=== PATIENT | male | born 1960 | race Caucasian/White ===

== ENCOUNTER → 2016-08-29 | Outpatient (CLI) | payer OTHER ==
[~2016-08-29] MED LIST: AMLO-114 PO; ATOR-24 PO; CIPR-255 PO; CLOP1TAB15 PO; LCTX PO; LISI-461 PO; PRT40 PO; THY/120 PO; VNCS125 PO
[2016-08-29 12:53] LABS: BLOOD UREA NITROGEN 13 mg/dl (7-18); BUN/CREATININE RATIO 9.5 (10-20)
== END | disposition home or self-care (01) ==
LOC: C.LAB 11:38
PROVIDERS: ATTEND Urology
DX: Z12.5 Encounter for screening for malignant neoplasm of prostate (principal)

== ENCOUNTER → 2016-08-29 | Outpatient (CLI) | payer OTHER ==
--- NOTE | 2016-08-29 08:07 | DIAGNOSTIC IMAGING REPORT ---
ABD/PELVIS NO IV OR ORAL CONT CT DOSE: 333.82 mGy.cm HISTORY: Mass B/L VARICOCELES TECHNIQUE: Multiaxial CT images of the abdomen and pelvis were performed without contrast. A dose lowering technique was utilized adhering to the principles of ALARA. COMPARISON STUDY: None. FINDINGS: Lung bases are clear. Liver is uniform within limitations of an unenhanced scan. There is a large left renal mass. Maximum dimensions of the left kidney approximately 10 x 7 cm. There is moderate perirenal infiltrative change. There is no definite hydronephrosis. There is distention of the left renal vein with distention of the inferior vena cava. Due to the absence of contrast is not possible to exclude the possibility of renal venous involvement. . Several left para-aortic nodes are present measuring to 1 cm. There is a retrocrural node measuring 8 mm. Several small left perirenal nodes are present. There is no distention of the left ureter. The right kidney is negative for hydronephrosis. Bowel pattern is considered nonobstructive. There are findings of mild chronic sigmoid diverticulosis. There is no evidence for acute diverticulitis. Bladder is midline. Inguinal regions appear generally unremarkable with several nodes measuring up to 7 mm. IMPRESSION: 1. Large mass occupying the bulk of the left renal outline. Probable perinephric localized extension. 2. This measures 10 x 7 cm in maximum cross-sectional dimension with moderate perinephric infiltrative change. 3. Distention of the left renal vein and superior aspect of the inferior vena cava raising the possibility of venous involvement although this cannot be confirmed on nonenhanced scan. 4. Several small perinephric, para aortic, and retroperitoneal nodes. 5. No acute bony abnormality. 6. Diagnostic considerations must include a left renal neoplasm, versus the less likely possibility of a left renal hemorrhagic process. 7. Neoplasm must the diagnosis of exclusion. The above report was generated using voice recognition software. It may contain grammatical, syntax or spelling errors. Electronically signed by: Suman Goncalves M.D. 08/29/2016 8:06 AM Dictated Date/Time: 08/29/2016 7:54 AM
== END | disposition home or self-care (01) ==
LOC: C.CTS 07:31
PROVIDERS: ATTEND Urology
DX: I86.1 Scrotal varices (principal); N28.89 Other specified disorders of kidney and ureter; R59.0 Localized enlarged lymph nodes

== ENCOUNTER → 2016-08-31 | Outpatient (CLI) | payer OTHER ==
[~2016-08-31] MED LIST changes: +OPTIRAY 320 IV PRN
--- NOTE | 2016-08-31 08:21 | DIAGNOSTIC IMAGING REPORT ---
(CHEST) THORAX WITH CT DOSE: 854.54 mGy.cm HISTORY: Renal mass GROSS HEMATURIA, RENAL MASS, LEFT TECHNIQUE: Multiaxial CT images of the chest were performed following the intravenous administration of contrast. A dose lowering technique was utilized adhering to the principles of ALARA. COMPARISON: None. FINDINGS: Large left renal mass versus been described previously. Invasion into the inferior vena cava is noted. Several parenchymal nodules are present. 3 mm nodule is noted in the right upper lobe transaxial image 110 superior segment nodule on the right measures 4 mm within the right lower lobe. 2 micronodules measuring 2 mm peripheral aspect right midlung transaxial image 140. 2 mm nodule peripheral left midlung transaxial image 143. Several scattered micronodules in the lung bases measuring no more than 2 mm. Left lower lobe demonstrates a 3 mm nodule transaxial image 174. Smaller nodules are identified throughout the lower lung regions bilaterally. There are no focal infiltrative changes. There is no significant hilar or mediastinal adenopathy. IMPRESSION: 1. Multiple pulmonary nodules suggesting early metastatic change. 2. No significant mediastinal or hilar adenopathy. 3. Known left renal mass demonstrating vascular invasion to the inferior vena cava at the level of the diaphragm. The above report was generated using voice recognition software. It may contain grammatical, syntax or spelling errors. Electronically signed by: Suman Goncalves M.D. 08/31/2016 8:19 AM Dictated Date/Time: 08/31/2016 8:10 AM
--- NOTE | 2016-08-31 08:31 | DIAGNOSTIC IMAGING REPORT ---
CT SCAN OF THE ABDOMEN AND PELVIS WITH IV CONTRAST RENAL MASS PROTOCOL CLINICAL HISTORY: Renal mass. COMPARISON STUDY: Unenhanced abdominal CT dated 08/29/2016. TECHNIQUE: Following the IV administration of 94 cc of Optiray 320, CT scan of the abdomen and pelvis is performed from the lung bases to the proximal femora using the renal mass protocol. The unenhanced examination was performed today as previously. Images are reviewed in the axial, sagittal, and coronal planes. IV contrast was administered without complication. Automated dose control exposure was utilized. A dose lowering technique was utilized adhering to the principles of ALARA. FINDINGS: Lung bases: The heart is normal in size and without pericardial effusion. The coronary arteries are calcified. Emphysema is noted. No airspace consolidation or pleural effusion is seen. There are at least 8 pulmonary nodules at the lung bases measuring up to 7 mm. Liver: The contrast-enhanced liver is normal in size, contour, and attenuation. There is no intrahepatic biliary ductal dilatation. The hepatic veins and portal veins are patent. An 8 mm hypodensity in the right hepatic lobe seen on image #1926 appears to fill in on the delayed series and likely represents a small hemangioma. Gallbladder: Unremarkable. Spleen: Normal in size and attenuation. Pancreas: Unremarkable. Adrenal glands: Unremarkable. Kidneys: The contrast enhanced right kidney is normal in size and without hydronephrosis. The right kidney enhances and excretes normally. The left kidney is largely replaced by an infiltrative and heterogeneous mass lesion. This measures at least 9 x 8 cm in transaxial diameter. There is mass lesion infiltrating and expanding the left renal vein. The left renal vein measures up to 2.5 cm diameter. This mass lesion also extends into the inferior vena cava and approaches the right atrium. The expanded upper IVC measures up to 4.2 cm. There is also likely invasion of the left renal collecting system. A cystic component is seen in the upper pole of the left kidney on image #114 and measures 2.8 cm. There are numerous collateral vessels vessels as well as mild stranding and fluid surrounding the left kidney. There is fullness of the left renal collecting system with no excretion identified. There is a the suggestion of a filling defect in the distal left ureter. No filling defects identified within the right renal collecting system or along the course of the right ureter. Abdominal vasculature: The abdominal aorta is normal in course and caliber noting moderate to advanced atherosclerotic calcification. Bowel: The small bowel and colon are normal in course and caliber. There is moderate diverticulosis of the left colon without CT evidence of acute diverticulitis. The appendix is well-visualized and normal. Peritoneum: There is no intraperitoneal free air or abdominal ascites. There is a small fat-containing umbilical hernia. Lymphadenopathy: No discrete retroperitoneal lymph nodes are identified. There is no pelvic sidewall, mesenteric, or inguinal lymphadenopathy. Pelvic viscera: Although decompressed, the bladder wall is markedly thickened and hyperemic. Intraluminal gas is noted. Pericystic inflammation is observed. There is the suggestion of a nodule/mass lesion involving the distal left ureter and the left vesicoureteral junction. The prostate and seminal vesicles are normal as imaged. They fat-containing left inguinal hernia is identified. Skeletal structures: No lytic or blastic lesions are seen. IMPRESSION: 1. There is a large infiltrative mass largely replacing the left kidney. This lesion invades the left renal vein and the inferior vena cava which are both expanded. This also likely invades the left renal collecting system, and the top differential considerations are renal cell carcinoma or less likely a transitional cell carcinoma. 2. There are numerous perirenal collateral vessels with associated infiltration and trace fluid, likely related to extracapsular extension. 3. A large filling defect is suggested in the distal left ureter. This may also represent tumor involvement. 4. No right renal lesion is seen. No discrete retroperitoneal lymphadenopathy is identified. 5. Numerous pulmonary nodules are identified at the lung bases and likely represent metastatic disease. 6. Emphysema. 7. Moderate diverticulosis of the left colon without CT evidence of acute diverticulitis. 8. The bladder wall is thickened and hyperemic. There is pericystic inflammation as well as intraluminal gas. Correlation with clinical findings and urinalysis will be required. 9. Additional findings as above. Electronically signed by: Vinnie Hernandez M.D. 08/31/2016 8:30 AM Dictated Date/Time: 08/31/2016 8:11 AM
== END | disposition home or self-care (01) ==
LOC: C.CTS 07:25
PROVIDERS: ATTEND Urology
DX: N28.89 Other specified disorders of kidney and ureter (principal); R31.0 Gross hematuria

== ENCOUNTER 2016-09-05 19:13 | Emergency (ER) | payer OTHER ==
[~2016-09-05] VITALS: Ht 170.2 cm; Wt 76.2 kg
[2016-09-05 19:17] VITALS: TEMP 36.7; Ht 170.2 cm; Wt 76.2 kg
[2016-09-05] MEDS ORDERED: THY/120 PO ×2 (20:22)
[2016-09-05] MEDS ORDERED: CLOP1TAB15 PO (20:22)
[2016-09-05] MEDS ORDERED: LISI-461 PO (20:22)
[2016-09-05] MEDS ORDERED: AMLO-114 PO (20:22)
[2016-09-05] MEDS ORDERED: ATOR-24 PO (20:22)
[2016-09-05] MEDS ORDERED: CIPROFLOXACIN 500MG HOME PACK PO ONE (20:45)
[2016-09-05] MEDS ORDERED: CIPR-255 PO (20:48)
[2016-09-05 21:15] VITALS: BP 138/101; PULSE 98; O2SAT 98
--- NOTE | 2016-09-05 23:06 | EMERGENCY ROOM VISIT NOTE ---
History Report prepared by Shirin: Aaron Mir Under the Supervision of: Dr. Hung Rodrigues M.D. First contact with patient: 19:24 Chief Complaint: URINARY SYMPTOMS Stated Complaint: CANNOT PEE Nursing Triage Summary: Pt reports he started passing blood clots through urine after having testing done here today with dye. Urologist told pt to hydrated to flush bladder. Last void 2 hours ago. Reporting bladder pressure and pain. Hx of left kidney mass with metastasis to bilat. lungs. testing today to R/O additional mets. History of Present Illness The patient is a 56 year old male who presents to the Emergency Room with complaints of urinary retention that began earlier today. 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 He received a CT scan today with contrast to try to find more metastasis. After the procedure, he began urinating blood and clots. He called his urologist and was told to drink a lot of water to flush his system. He then could not urinate and is experiencing retention. This has happened to the patient in the past. Pt denies LOC, headache , fevers, chills, diaphoresis, visual changes, neck pain, chest pain, breathing difficulties, nausea, vomiting, abdominal pain, back pain, melena, hematochezia , numbness, weakness, lymphadenopathy, rash, or other complaints. Source of History: patient Onset: earlier today Position: other () Symptom Intensity: moderate Quality: other (Urinary Retention) Timing: constant Associated Symptoms: + abdominal pain, + urinary symptoms (blood in urine) Review of Systems See HPI for pertinent positives and negatives. A total of ten systems were reviewed and were otherwise negative. Past Medical & Surgical Medical Problems: (1) CAD (coronary artery disease) (2) Hypothyroid Surgical Problems: (1) Stented coronary artery Family History Omitted secondary to age. Social History Smoking Status: Former Smoker Smokeless Tobacco Use: No Drug Use: none Marital Status: Housing Status: lives with significant other Current/Historical Medications Scheduled Amlodipine (Norvasc), 10 MG PO QAM Atorvastatin (Lipitor), 40 MG PO QPM Ciprofloxacin Hcl (Cipro), 500 MG PO BID Clopidogrel (Plavix), 75 MG PO QAM Lisinopril (Lisinopril), 10 MG PO QAM Thyroid ([place] Thyroid), 120 MG PO 6XWK Thyroid ([place] Thyroid), 60 MG PO SUNDAY Allergies Coded Allergies: BEE STING (Unverified Allergy, Unknown, SWELLING, 09/05/16) Banana (Unverified Allergy, Unknown, ANAPHYLAXIS, 09/05/16) Physical Exam Vital Signs Date Time Temp Pulse Resp B/P (MAP) Pulse Ox O2 Delivery O2 Flow Rate FiO2 09/05/16 21:15 98 18 138/101 98 Room Air 09/05/16 19:17 36.7 133 18 153/103 93 Room Air Physical Exam GENERAL: Awake, alert, uncomfortable appearing, in no distress HENT: Normocephalic, atraumatic. Oropharynx unremarkable. EYES: Normal conjunctiva. Sclera non-icteric. NECK: Supple. No nuchal rigidity. FROM. No JVD. RESPIRATORY: Clear to auscultation. CARDIAC: Regular rate, normal rhythm. Extremities warm and well perfused. Pulses equal. ABDOMEN: Soft, non-distended. Suprapubic tenderness to palpation. No rebound or guarding. No masses. RECTAL: Deferred. MUSCULOSKELETAL: Chest examination reveals no tenderness. The back is symmetrical on inspection without obvious abnormality. There is no CVA tenderness to palpation. No joint edema. LOWER EXTREMITIES: Calves are equal size bilaterally and non-tender. No edema. No discoloration. NEURO: Normal sensorium. No sensory or motor deficits noted. SKIN: No rash or jaundice noted. Medical Decision & Procedures ER Provider Diagnostic Interpretation: Bladder Scan revealed 800 ml of urine. Medications Administered Medications (Trade) Dose Ordered Sig/Francisco Javier Route Start Time Stop Time Status Last Admin Dose Admin Ciprofloxacin (Cipro 500MG Home Pack) 1 homepack UD ONCE PO 09/05/16 20:45 09/05/16 20:46 DC 09/05/16 21:31 1 HOMEPACK ED Course 1923: The patient was evaluated in room B10. A complete history and physical exam was performed. 2019: At this time, the patient feels better. We replaced his 16 [place] catheter with a 20 [place] catheter. The nurse irrigated the area and got 750 ml out of his bladder without leakage. 2044: Ordered Ciprofloxacin 1 homepack PO 2052: I reevaluated the patient. Discussed results and discharge instructions: He verbalized understanding and agreement. The patient is ready for discharge. Medical Decision Triage Nursing notes reviewed. The patient's presentation and history were concerning for urinary retention. Etiologies such as acute urinary retention, renal colic, UTI, as well as others were entertained. Bladder scan revealed significant urinary retention. The patient had a Casey catheter placed. This did relieve some pressure however the catheter clotted. A 20 [place] catheter was placed. This worked very nicely. His ladder was irrigated. A culture was sent. I will place the patient on Cipro. He has had the same issue happened before. I believe his renal cancer is the root cause of the hematuria and subsequent urinary obstruction. The patient will follow-up with urology. He is comfortable using a leg bag. If he worsens in any way he will be back to the Emergency Room for reevaluation. By the evaluation outlined above other emergent etiologies such as those listed in the differential, as well as others, were deemed relatively unlikely. The patient was educated about the findings as listed above. All questions were answered and the patient was pleased with the treatment. Return instructions were outlined and the patient was discharged in stable condition. The patient was referred to Urology for follow-up for a recheck of the current condition. Medication Reconcilliation Current Medication List: was personally reviewed by me Blood Pressure Screening Patient's blood pressure: Elevated blood pressure Blood pressure disposition: Elevated BP felt to be situational Impression Primary Impression: Acute urinary retention Additional Impression: Hematuria Scribe Attestation The scribe's documentation has been prepared under my direction and personally reviewed by me in its entirety. I confirm that the note above accurately reflects all work, treatment, procedures, and medical decision making performed by me. Departure Information Dispostion Home / Self-Care Prescriptions Ciprofloxacin Hcl (CIPRO) 500 Mg Tab 500 MG PO BID, #8 TAB Prov: Hung Rodrigues MD 09/05/16 Referrals Surinder Montano M.D. (PCP) Forms HOME CARE DOCUMENTATION FORM, IMPORTANT VISIT INFORMATION Patient Instructions My [facility] Additional Instructions Ciprofloxacin 500mg: Take one pill twice daily for 5 days for your urine. All antibiotics can cause diarrhea. If this occurs and you feel worse or it does not resolve in 1-2 days follow up with your doctor or return to the Emergency Department as this could be signs of serious underlying problems. Any medication can cause an allergic reaction or complication, stop the pills immediately and return to the ER for rash, hives, breathing difficulties, tendon pain, tendon injury, or swelling. Acetaminophen(Tylenol) may be used for fever or pain. Use 1000mg every six hours as needed. Avoid using more than 3000mg in a 24 hour period. Continue current medications. Care for the catheter as discussed. Do not pull on the catheter. Use the leg bag during the day and the large bag at night when you are sleeping. Drain the bag frequently. Do not let it fill completely. Return to the emergency department for fevers, abdominal pain, catheter problems , or as needed. Followup with the [facility] at [phone]. Call tomorrow for an appointment. Problem Qualifiers
[2016-09-06] MEDS ORDERED: CIPR-255 PO (00:03)
[2016-10-13] MEDS ORDERED: PRT40 PO (15:10)
[2016-10-13] MEDS ORDERED: VNCS125 PO (15:10)
[2016-10-13] MEDS ORDERED: LCTX PO (15:10)
== END 2016-09-05 21:34 | disposition home or self-care (01) ==
LOC: C.EDB 19:14
DX: R33.9 Retention of urine, unspecified (principal); R31.9 Hematuria, unspecified; C64.2 Malignant neoplasm of left kidney, except renal pelvis; C78.00 Secondary malignant neoplasm of unspecified lung; I25.10 Atherosclerotic heart disease of native coronary artery without angina pectoris; E03.9 Hypothyroidism, unspecified; Z95.5 Presence of coronary angioplasty implant and graft; Z87.891 Personal history of nicotine dependence; Z79.01 Long term (current) use of anticoagulants; Z79.899 Other long term (current) drug therapy

== ENCOUNTER 2016-09-05 23:37 | Emergency (ER) | payer OTHER ==
[~2016-09-05] VITALS: Ht 171.5 cm; Wt 75.6 kg
[~2016-09-05 23:37] MED LIST changes: -LCTX PO; -PRT40 PO; -VNCS125 PO
[2016-09-05 23:39] VITALS: TEMP 36.6; Ht 171.5 cm; Wt 75.6 kg
[2016-09-06] MEDS ORDERED: CIPR-255 PO (00:03)
--- NOTE | 2016-09-06 00:44 | EMERGENCY ROOM VISIT NOTE ---
History First contact with patient: 23:46 Chief Complaint: CATHETER REPLACEMENT Stated Complaint: PEEING BLOOD OUT AROUND CATHETER- HERE 1HR AGO History of Present Illness The patient is a 56 year old male who presents to the Emergency Room with complaints of problems with his Casey catheter. The patient states that he was here one hour ago and had a Casey catheter inserted. He states that before he left, he noted some blood leaking around the catheter and was concerned but was told that this could be normal. He has a history of renal cell carcinoma and follows with Dr. London of urology. He has had issues with blood clots in the urine in the past. He states that he feels like he has to urinate, but is unable to. He denies any abdominal pain, fevers or CVA tenderness. Review of Systems A complete 10 point review of systems was reviewed with the patient with pertinent positives and negatives as per history of present illness. All else were negative. Past Medical/Surgical History Medical Problems: (1) CAD (coronary artery disease) (2) Hypothyroid Surgical Problems: (1) Stented coronary artery Social History Smoking Status: Former Smoker Drug Use: none Marital Status: Housing Status: lives with significant other Current/Historical Medications Scheduled Amlodipine (Norvasc), 10 MG PO QAM Atorvastatin (Lipitor), 40 MG PO QPM Ciprofloxacin Hcl (Cipro), 500 MG PO BID Clopidogrel (Plavix), 75 MG PO QAM Lisinopril (Lisinopril), 10 MG PO QAM Thyroid ([place] Thyroid), 120 MG PO 6XWK Thyroid ([place] Thyroid), 60 MG PO SUNDAY Physical Exam Vital Signs Date Time Temp Pulse Resp B/P (MAP) Pulse Ox O2 Delivery O2 Flow Rate FiO2 09/06/16 00:49 78 18 163/101 98 09/05/16 23:39 36.6 100 18 162/104 96 Room Air Physical Exam VITALS: Vitals are noted on the nurse's note and reviewed by myself. Vital signs stable. GENERAL: This is a 48-year-old male, in no acute distress, well-developed well- nourished. HEART: Regular rate and rhythm without murmurs gallops or rubs. LUNGS: Clear to auscultation bilaterally without wheezes, rales or rhonchi. ABDOMEN: Soft, nontender. : There is a small amount of bright red blood around the Casey catheter. NEURO: Patient was alert and oriented to person place and time. Medical Decision & Procedures Medical Decision Differential diagnosis includes urinary tract infection, kidney stone, clotted catheter, among others. The patient was evaluated as above. The Casey catheter was irrigated by nursing staff and a clot was removed. After this was removed, the catheter began draining normally. The patient had no further complaints. I feel he is safe for discharge home to follow up with urology tomorrow. He was instructed to return here for any further concerns. He verbalized understanding and was discharged home in good condition. Medication Reconcilliation Current Medication List: was personally reviewed by pr Blood Pressure Screening Patient's blood pressure: Elevated blood pressure Blood pressure disposition: Elevated BP felt to be situational Impression Primary Impression: Complication of catheter Departure Information Dispostion Home / Self-Care Condition GOOD Referrals Surinder Montano M.D. (PCP) Pardeep London MD, Urology Patient Instructions My [facility] Additional Instructions Call urology tomorrow to schedule follow-up. Return to the emergency department with any worsening or new/concerning symptoms. Problem Qualifiers Primary Impression: Complication of catheter Encounter type: initial encounter Qualified Codes: T85.9XXA - Unspecified complication of internal prosthetic device, implant and graft, initial encounter
[2016-09-06 00:49] VITALS: BP 163/101; PULSE 78; O2SAT 98
[2016-10-13] MEDS ORDERED: PRT40 PO (15:10)
[2016-10-13] MEDS ORDERED: LCTX PO (15:10)
[2016-10-13] MEDS ORDERED: VNCS125 PO (15:10)
== END 2016-09-06 00:49 | disposition home or self-care (01) ==
LOC: C.EDB 23:38 → C.EDC 09-06 00:49
DX: T83.038A Leakage of other urinary catheter, initial encounter (principal); X58.XXXA Exposure to other specified factors, initial encounter; I25.10 Atherosclerotic heart disease of native coronary artery without angina pectoris; E03.9 Hypothyroidism, unspecified; Z85.53 Personal history of malignant neoplasm of renal pelvis; Z98.61 Coronary angioplasty status; Z79.899 Other long term (current) drug therapy; Z87.891 Personal history of nicotine dependence

== ENCOUNTER → 2016-09-05 | Outpatient (CLI) | payer OTHER ==
[~2016-09-05] MED LIST changes: -OPTIRAY 320 IV PRN
--- NOTE | 2016-09-05 12:55 | DIAGNOSTIC IMAGING REPORT ---
HEAD WITH CONTRAST (CT) HISTORY: N28.89 Renal mass, leftC64.2 Metastasis from malignant tumor of TECHNIQUE: Multiaxial CT images of the head were performed following the use of intravenous contrast. COMPARISON STUDY: None. FINDINGS: The paranasal sinuses and mastoid air cells are clear. No suspicious lytic or blastic osseous lesions. The ventricles and sulci are within normal limits. There is no mass, hematoma, midline shift, acute infarct. No abnormal enhancement within the brain. IMPRESSION: No evidence for intracranial metastatic disease. Electronically signed by: Tyrone Tyler M.D. 09/05/2016 12:54 PM Dictated Date/Time: 09/05/2016 12:49 PM
--- NOTE | 2016-09-05 15:15 | DIAGNOSTIC IMAGING REPORT ---
WHOLE-BODY NUCLEAR BONE SCAN CLINICAL HISTORY: Renal mass. COMPARISON STUDY: CT scan of the chest, abdomen, and pelvis dated 08/31/2016. CT of the brain dated 09/05/2016. TECHNIQUE: Three hours following the IV administration of 26.1 mCi of technetium 99m MDP, whole body nuclear bone scan was performed in the anterior and posterior projections. FINDINGS: There is no abnormal osseous tracer deposition identified typical in appearance for bony metastatic disease. Typically degenerative uptake is identified the shoulders, knees, and ankles There is expected excreted activity within the renal collecting system and bladder. There is diminished activity in the left kidney as compared to the right. IMPRESSION: There is no scintigraphic evidence of osseous metastatic disease. Electronically signed by: Vinnie Hernandez M.D. 09/05/2016 3:13 PM Dictated Date/Time: 09/05/2016 3:11 PM
== END | disposition home or self-care (01) ==
LOC: C.NUCL 11:36
PROVIDERS: ATTEND Urology
DX: R31.0 Gross hematuria (principal); N28.89 Other specified disorders of kidney and ureter; I82.220 Acute embolism and thrombosis of inferior vena cava; C64.2 Malignant neoplasm of left kidney, except renal pelvis

== ENCOUNTER → 2016-09-13 | Outpatient (CLI) | payer OTHER ==
[~2016-09-13] MED LIST changes: +LCTX PO; +PRT40 PO; +VNCS125 PO
--- NOTE | 2016-09-13 12:11 | DIAGNOSTIC IMAGING REPORT ---
PET/CT HISTORY: KIDNEY CANCER TECHNIQUE: PET/CT was performed from the base of the skull through the pelvis following the intravenous administration of 14.9 mCi of F18-FDG. Non-contrast CT imaging was performed over the same range without breath-hold for attenuation correction of PET images and anatomic correlation, but not for primary interpretation as it is not of standard diagnostic quality. CT DOSE: COMPARISON: Bone scan and head CT 09/05/2016. Chest abdomen and pelvis CT 08/31/2016. FINDINGS: HEAD AND NECK: There is no FDG-avid disease or significant lymphadenopathy in the imaged portions of the head and the neck. CHEST: Multiple scattered subcentimeter nodules seen throughout the lungs with the largest in the right lower lobe measuring 5 mm on image 106. There are at least 20 nodules identified. These do not demonstrate abnormal FDG uptake but are likely below the partial for PET imaging. No mediastinal or hilar lymphadenopathy. No pleural effusions. ABDOMEN/PELVIS: There is again noted a large FDG avid mass resulting in near-complete replacement of the normal left kidney. This measures up to 10 cm in size. This demonstrates an SUV max of 4.6. There is also redemonstration of the FDG avid extension of tumor into the renal vein and the suprarenal/intrahepatic IVC. These areas demonstrate an SUV max of 5. There is tumor involving a proximal branch of the left renal vein along the left side of the aorta. Mild left perinephric fat stranding. Some of this demonstrates mild FDG uptake and is consistent with spread of tumor into Gerota's fascia. There is also a 5 mm soft tissue nodule within the retroperitoneal fat inferior to the left kidney on image 188. This does not demonstrate abnormal normal FDG uptake but is suspicious for metastatic disease. No FDG avid hepatic or splenic masses. A 6 mm hypodense lesion within the right hepatic lobe is stable and may represent a cyst. Small fat-containing left adrenal hernia. Gas within the bladder lumen is likely due to prior catheterization. MUSCULOSKELETAL: Small focus of mild FDG uptake at the anterior L5-S1 disc space favors degenerative change. There are also small foci of mild FDG uptake either adjacent to or within the left posterior seventh and eighth ribs best seen on images 84 and 93. There is no corresponding CT abnormality at this time. IMPRESSION: 1. Redemonstration of the large infiltrative FDG avid left renal mass with tumor extending into the left renal vein and left suprarenal/intrahepatic IVC. There is also left perinephric soft tissue stranding. Some of this demonstrates mild FDG uptake. Therefore, this consistent with tumor extension into the surrounding Gerota's fascia. 2. Multiple subcentimeter pulmonary nodules. These do not demonstrate abnormal FDG uptake but are likely below the threshold for PET imaging. Therefore, these likely represent metastatic disease. 3. A 5 mm soft tissue nodule within the left retroperitoneal fat inferior to the left kidney. This does not demonstrate abnormal FDG uptake but is likely below the threshold for PET imaging. This is also some suspicious for metastatic focus. 4. Focal areas of mild FDG uptake either within or adjacent to the left posterior seventh and eighth ribs. No corresponding abnormality by CT. This bears watching on future examinations. Electronically signed by: Tyrone Tyler M.D. 09/13/2016 12:10 PM Dictated Date/Time: 09/13/2016 11:46 AM
== END | disposition home or self-care (01) ==
LOC: C.PET 07:55
PROVIDERS: ATTEND Internal Medicine Hematology
DX: C64.2 Malignant neoplasm of left kidney, except renal pelvis (principal); C79.9 Secondary malignant neoplasm of unspecified site; I87.1 Compression of vein

== ENCOUNTER 2016-10-09 01:03 | Inpatient (IN) | payer OTHER ==
[~2016-10-09] VITALS: Ht 170.2 cm; Wt 74.0 kg
[~2016-10-09 01:03] MED LIST changes: -LCTX PO; -PRT40 PO; -VNCS125 PO
[2016-10-09] MEDS ORDERED: ONDANSETRON INJ 2 MG/ML 2 ML VIAL IV STA ×2 (01:31→05:17)
[2016-10-09] MEDS ORDERED: SODIUM CHLORIDE 0.9% 1000ML 1,000 ML IV STA ×3 (01:31→05:43)
--- NOTE | 2016-10-09 01:47 | EMERGENCY ROOM VISIT NOTE ---
History Report prepared by Lemuelibe: Niharika Layton Under the Supervision of: Dr. Martine Lugo D.O. First contact with patient: 01:12 Chief Complaint: WEAKNESS Stated Complaint: GENERAL WEAKNESS/BLOATED/ UNABLE TO URINATE Nursing Triage Summary: arrived via amb with als. pt had recent kidney removal for ca and some surgery along his aorta for mets. c/o weakness tonight and pain in left kidney removal area. History of Present Illness The patient is a 56 year old male who presents to the Emergency Room with complaints of constant generalized illness starting about 11 hours ago. The patient notes that he has had 5 episodes of vomiting today which were green in color. The patient denies any nausea, shortness of breath, or abdominal pain. He states that his bladder feels full. The patient had his left kidney and a renal mass as well as lymph nodes surrounding his aorta removed 5 days ago at [facility]. The patient describes feeling pretty well since discharge. He had been suffering from some shortness of breath but states that that seemed to improve dramatically earlier yesterday. Source of History: patient Onset: 11 hours ago Position: other (generalized) Timing: constant Associated Symptoms: + vomiting, No nausea, No abdominal pain Review of Systems See HPI for pertinent positives & negatives. A total of 10 systems reviewed and were otherwise negative. Past Medical & Surgical Medical Problems: (1) ARF (acute renal failure) (2) CAD (coronary artery disease) (3) Hypothyroid (4) Pneumothorax Surgical Problems: (1) Stented coronary artery Family History no pertinent family history stated. Social History Smoking Status: Never Smoker Drug Use: none Marital Status: Housing Status: lives with significant other Current/Historical Medications Scheduled Amlodipine (Norvasc), 10 MG PO QAM Atorvastatin (Lipitor), 40 MG PO QPM Clopidogrel (Plavix), 75 MG PO QAM Lisinopril (Lisinopril), 10 MG PO QAM Thyroid (Coxsackie Thyroid), 120 MG PO 6XWK Thyroid (Coxsackie Thyroid), 60 MG PO SUNDAY Allergies Coded Allergies: BEE STING (Verified Allergy, Unknown, SWELLING, 10/09/16) Banana (Verified Allergy, Unknown, ANAPHYLAXIS, 10/09/16) Physical Exam Vital Signs Date Time Temp Pulse Resp B/P (MAP) Pulse Ox O2 Delivery O2 Flow Rate FiO2 10/09/16 06:42 120 20 105/70 93 Nasal Cannula 2.0 10/09/16 06:08 111 20 102/77 99 Nasal Cannula 2.0 10/09/16 05:35 112 18 86/70 96 Nasal Cannula 2.0 10/09/16 05:16 115 10/09/16 04:34 117 20 95/69 97 Nasal Cannula 2.0 10/09/16 03:48 117 20 93/63 94 Nasal Cannula 2.0 10/09/16 03:06 115 20 83/59 96 Nasal Cannula 2.0 10/09/16 02:25 114 20 101/58 95 Nasal Cannula 2.0 10/09/16 02:09 112 20 85/62 96 Nasal Cannula 2.0 10/09/16 01:49 98 Nasal Cannula 2.0 10/09/16 01:41 117 20 111/78 95 Nasal Cannula 2.0 10/09/16 01:17 94 Room Air 10/09/16 01:12 119 10/09/16 01:11 36.6 117 20 86/56 94 Room Air Physical Exam HEENT: Head - normocephalic and atraumatic Pupils are equal, round, and reactive to light. Extraocular eye muscles are intact, and sclera icterus. Nose - moist nasal mucosa without discharge. Mouth - moist buccal mucosa. Oropharynx is nonerythematous and there is no tonsillar exudate or edema noted. Neck: Supple; no JVD, nuchal rigidity, cervical lymphadenopathy. Heart: Regular rate and rhythm. There is a normal S1 and S2 with no murmurs, clicks, or gallops appreciated. Lungs: Clear to auscultation bilaterally with no wheezes, rales, or rhonchi. Abdomen: Soft, completely nontender, significantly distended, with hypoactive bowel sounds. There are no palpable pulsatile masses or hepatosplenomegaly. There is no guarding, rigidity, or rebound noted. Extremities: No evidence of cyanosis, clubbing, or edema. There are easily palpable peripheral pulses. Skin: pale, warm and dry with good turgor and no rashes. Left chest tube site looks normal. Midline abdominal incision looks normal with Dermabond in place. Medical Decision & Procedures ER Provider Diagnostic Interpretation: Radiology results as stated below per my review and the radiologist's interpretation: Obstruction Series: Small bowel obstruction with multiple air fluid levels. CT ABDOMEN & PELVIS Left-sided pneumothorax which is only partially visualized. Consider CT of the chest or radiograph of the chest in exhalation. Small amount of subcutaneous emphysema noted with the left chest. Enteric tube is seen with tip at the GE junction. Recommend advancement by 5 cm. Dilated stomach and small bowel loops with a transition point in the right lower quadrant(2-52). Findings are concerning for small bowel obstruction. No pneumatosis or free air. The left kidney is surgically absent. Standing is noted within the surgical bed. Noninflamed colonic diverticulosis. Appendix is not visualized. Urinary bladder is decompressed with a Casey catheter present. Laboratory Results 10/09/16 00:58 Red Blood Count 3.64, Mean Corpuscular Volume 84.3, Mean Corpuscular Hemoglobin 29.4, Mean Corpuscular Hemoglobin Concent 34.9, Mean Platelet Volume 10.4, Neutrophils (%) (Auto) 68.6, Lymphocytes (%) (Auto) 8.9, Monocytes (%) (Auto) 19.1, Eosinophils (%) (Auto) 1.9, Basophils (%) (Auto) 0.4, Neutrophils # (Auto ) 3.92, Lymphocytes # (Auto) 0.51, Monocytes # (Auto) 1.09, Eosinophils # (Auto ) 0.11, Basophils # (Auto) 0.02 Test 10/09/16 00:58 10/09/16 01:29 10/09/16 06:24 10/09/16 06:35 White Blood Count 5.71 K/uL (4.8-10.8) Red Blood Count 3.64 M/uL (4.7-6.1) Hemoglobin 10.7 g/dL (14.0-18.0) Hematocrit 30.7 % (42-52) Mean Corpuscular Volume 84.3 fL (80-100) Mean Corpuscular Hemoglobin 29.4 pg (25-34) Mean Corpuscular Hemoglobin Concent 34.9 g/dl (32-36) Platelet Count 293 K/uL (130-400) Mean Platelet Volume 10.4 fL (7.4-10.4) Neutrophils (%) (Auto) 68.6 % Lymphocytes (%) (Auto) 8.9 % Monocytes (%) (Auto) 19.1 % Eosinophils (%) (Auto) 1.9 % Basophils (%) (Auto) 0.4 % Neutrophils # (Auto) 3.92 K/uL (1.4-6.5) Lymphocytes # (Auto) 0.51 K/uL (1.2-3.4) Monocytes # (Auto) 1.09 K/uL (0.11-0.59) Eosinophils # (Auto) 0.11 K/uL (0-0.5) Basophils # (Auto) 0.02 K/uL (0-0.2) RDW Standard Deviation 40.4 fL (36.4-46.3) RDW Coefficient of Variation 13.4 % (11.5-14.5) Immature Granulocyte % (Auto) 1.1 % Immature Granulocyte # (Auto) 0.06 K/uL (0.00-0.02) Nucleated RBC Absolute Count (auto) 0.24 K/uL (0-0) Nucleated Red Blood Cells % 4.2 % Toxic Granulation 2+ Toxic Vacuolation 1+ Dohle Bodies 1+ Large Platelets 1+ Polychromasia 1+ D-Dimer 57753 ug/L FEU (0-500) Est Creatinine Clear Calc Drug Dose 32.7 ml/min Total Bilirubin 0.6 mg/dl (0.2-1) Aspartate Amino Transf (AST/SGOT) 33 U/L (15-37) Alanine Aminotransferase (ALT/SGPT) 36 U/L (12-78) Alkaline Phosphatase 69 U/L (45-117) Troponin I < 0.015 ng/ml (0-0.045) Total Protein 6.9 gm/dl (6.4-8.2) Albumin 2.9 gm/dl (3.4-5.0) Globulin 4.0 gm/dl (2.5-4.0) Albumin/Globulin Ratio 0.7 (0.9-2) Laboratory results per my review. Medications Administered Medications (Trade) Dose Ordered Sig/Francisco Javier Route Start Time Stop Time Status Last Admin Dose Admin Sodium Chloride 1,000 ml @ 999 mls/hr Q1H1M STAT IV 10/09/16 01:31 10/09/16 02:31 DC 10/09/16 01:31 999 MLS/HR Ondansetron HCl (Zofran Inj) 4 mg NOW STAT IV 10/09/16 01:31 10/09/16 01:32 DC 10/09/16 01:37 4 MG Sodium Chloride 1,000 ml @ 125 mls/hr Q8H STAT IV 10/09/16 01:43 10/09/16 09:42 10/09/16 01:43 125 MLS/HR Ondansetron HCl (Zofran Inj) 4 mg NOW STAT IV 10/09/16 05:17 10/09/16 05:18 DC 10/09/16 05:24 4 MG Metronidazole (Flagyl / Nss) 500 mg NOW STAT IV 10/09/16 05:38 10/09/16 05:40 DC 10/09/16 05:47 500 MG Sodium Chloride 1,000 ml @ 999 mls/hr Q1H1M STAT IV 10/09/16 05:43 10/09/16 06:43 DC 10/09/16 05:43 999 MLS/HR Procedure Zofran Inj IV 2 , NSS IV. Flagyl/Nss IV. ED Course 0123: Past medical records reviewed. The patient was evaluated in room B5. A complete history and physical exam was performed. Labs were drawn as above. 0131: Zofran Inj 4 mg IV, Sodium Chloride 1000 ml @ 999 mls/hr IV. 0138: Casey catheter was put in place and there was no urine output. 0143: Sodium Chloride 1000 ml @ 125 mls/hr IV. The patient went for an obstruction series which showed signs of a small bowel obstruction with air- fluid levels throughout the small bowel. 0155: The patient became hypoxic and was put on O2 and his blood pressure dropped back down into 80's. 0319: I [facility] the [facility] [place] [facility] [place] He suggested I discuss the case with surgery billing collections specialist. The patient went for CT scan of the abdomen/pelvis to further define this small bowel obstruction. 0511: The patient is still nauseated and the nursing staff was able to get 600 out of the NG tube. 0517: Zofran Inj 4 mg IV. 0529: I discussed the patient's lab and CT results with him. He is C. diff positive. 0536: I discussed the patients case with Dr. Kahn-Surgery. He said that the patient will be fine for admit here. 0538: Flagyl/Nss 500 mg IV. 0543: Sodium Chloride 1000 ml @ 999 mls/hr IV. 0601: Upon reevaluation, I discussed findings and results with the patient. He verbalized agreement of the treatment plan. I spoke with [place] Erwin of the [facility] [place]. The patient will be evaluated for further management and care. Medical Decision The patient is a 56 year old male who presents to the Emergency Room with complaints of constant generalized illness starting about 11 hours ago. Differential diagnosis includes urinary retention, SBO dehydration, intraabdominal bleeding, PE, or sepsis Lab results show white count 5.7, hemoglobin 10.7, BUN 37, creatinine 2.3, D- dimer [id number]. This is a 56-year-old male patient who recently underwent left nephrectomy with tumor resection at [facility]. Over the past 12 hours, the patient has developed bilious vomiting. He presents with significant abdominal distention. X-ray confirms evidence of a small bowel obstruction. The patient had profuse diarrhea that was C. difficile positive. Casey catheter placement revealed no urinary output. The patient was treated aggressively with IV crystalloid therapy and started on IV Flagyl. NG tube placement produced more than 1000 mL of bilious substance. I discussed the case with surgery as well as the [facility] Hospitalist and they will evaluate for further management. Medication Reconcilliation Current Medication List: was personally reviewed by me Blood Pressure Screening Patient's blood pressure: Low blood pressure Blood pressure disposition: Elevated BP felt to be situational Consults Time Called: 316 Consulting Physician[facility] [place] [facility] [place]ed Call: [phone] Discussed the patient's case. He suggested I discuss the case with surgery billing collections specialist. Additional Consults: Time Called: 05 Consulted Physician: Dr. Kahn-Surgery Returned Call: [phone] Additional Comments: Discussed the patient's case. He thinks that the patient will be fine for admit here. Time Called: 06 Consulted Phys[facility] [place] [facility] [place]ed Call: 06 Additional Comments: Discussed the patient's case. The patient will be evaluated for further management. Impression Primary Impression: SBO (small bowel obstruction) Additional Impressions: Acute kidney injury C. difficile colitis Scribe Attestation The scribe's documentation has been prepared under my direction and personally reviewed by me in its entirety. I confirm that the note above accurately reflects all work, treatment, procedures, and medical decision making performed by me. Departure Information Referrals Surinder Montano M.D. (PCP) Patient Instructions My [facility] Problem Qualifiers
[2016-10-09 01:50] LABS: HEMATOCRIT 30.7 % (42-52); MEAN CELL VOLUME 84.3 fL (80-100); MEAN CORPUSCULAR HEMOGLOBIN 29.4 pg (25-34); MEAN CORPUSCULAR HGB CONC 34.9 g/dl (32-36); MEAN PLATELET VOLUME 10.4 fL (7.4-10.4); PLATELET COUNT 293 K/uL (130-400); RED BLOOD COUNT 3.64 M/uL (4.7-6.1); WHITE BLOOD COUNT 5.71 K/uL (4.8-10.8)
[2016-10-09 01:56] LABS: ALT/SGPT 36 U/L (12-78); AST/SGOT 33 U/L (15-37); BLOOD UREA NITROGEN 37 mg/dl (7-18); BUN/CREATININE RATIO 16.2 (10-20); CALCIUM 8.1 mg/dl (8.5-10.1); CARBON DIOXIDE 27 mmol/L (21-32); CHLORIDE 93 mmol/L (98-107); GLUCOSE 120 mg/dl (70-99); POTASSIUM 3.4 mmol/L (3.5-5.1); SODIUM 131 mmol/L (136-145)
[2016-10-09 02:01] LABS: ALB/GLOB RATIO 0.7 (0.9-2); ALKALINE PHOSPHATASE 69 U/L (45-117)
[2016-10-09 03:03] LABS: BASO % 0.4 %; BASO ABS # 0.02 K/uL (0-0.2); COMPLETE YES; DOHLE BODIES 1+; EOS % 1.9 %; IG% 1.1 %; LARGE PLATELETS 1+; LYMPH % 8.9 %; LYMPH ABS # 0.51 K/uL (1.2-3.4); MONO % 19.1 %; NEUT % 68.6 %; POLYCHROMASIA 1+; TOXIC GRANULATION 2+; VACUOLIZATION 1+
[2016-10-09] MEDS ORDERED: METRONIDAZOLE 500MG / 100ML NSS IV STA (05:38)
[2016-10-09] MEDS ORDERED: VANCOMYCIN INJ 500 MG in SODIUM CHLORIDE 0.9% 250ML 250 ML IV STA (05:38)
[2016-10-09] MEDS ORDERED: NSS + 20MEQ KCL 1000ML 1,000 ML IV SCH (06:15)
[2016-10-09 06:58] LABS: URINE APPEARANCE CLOUDY (CLEAR); URINE COLOR DK YELLOW; URINE NITRITE NEG (NEG); URINE SPECIFIC GRAVITY 1.024 (1.000-1.030); UROBILINOGEN NEG (NEG)
[2016-10-09] MEDS ORDERED: LORAZEPAM 2 MG/ML 1 ML VIAL IV PRN (07:00)
[2016-10-09] MEDS ORDERED: PROMETHAZINE HCL INJ 12.5 MG in SODIUM CHLORIDE 0.9% 50ML 50 ML IV PRN (07:00)
[2016-10-09] MEDS ORDERED: LEVALBUTEROL/IPRATROPIUM NEB INH PRN (07:00)
[2016-10-09] MEDS ORDERED: TRAMADOL HCL 50 MG TAB PO PRN (07:00)
--- NOTE | 2016-10-09 07:06 | DIAGNOSTIC IMAGING REPORT ---
ABDOMEN 2VIEW W/PA CHEST RTN HISTORY: 56 years-old Male eval for sbo acute generalized abdominal pain with nausea. History of kidney cancer. COMPARISON: PET CT 09/13/2016, CT abdomen and pelvis 10/09/2016. TECHNIQUE: Frontal view of the chest with erect and supine views of the abdomen FINDINGS: Prior median sternotomy. Cardiac silhouette is within normal limits. Small left-sided pneumothorax is seen with pleural separation of 6 mm. No right-sided pneumothorax. No pleural effusion or focal airspace consolidation. The bones are grossly intact. Multiple surgical clips are seen within the left upper and lower abdomen. There are multiple dilated loops of small bowel throughout the abdomen with associated air-fluid levels measuring up to 4.3 cm transversely. No significant air within the colon. No pneumoperitoneum or pneumatosis identified. No urolithiasis or fracture. Mild degenerative changes involve the bilateral hips. IMPRESSION: 1. Small left-sided pneumothorax of unknown etiology without rib fracture identified. 2. Multiple dilated loops of small bowel throughout the abdomen with air-fluid levels suspicious for small bowel obstruction. Further evaluation with CT study of same day recommended. The above report was generated using voice recognition software. It may contain grammatical, syntax or spelling errors. Electronically signed by: Travis Pina M.D. 10/09/2016 7:05 AM Dictated Date/Time: 10/09/2016 6:57 AM
[2016-10-09 07:12] LABS: MANUAL MICROSCOPIC REQUIRED? NO; REVIEW REQ? YES; URINE BILIRUBIN NEG (NEG)
[2016-10-09 07:14] LABS: BUN/CREATININE RATIO 14.7 (10-20); CALCIUM 7.5 mg/dl (8.5-10.1); CREATININE 2.6 mg/dl (0.60-1.40); POTASSIUM 3.2 mmol/L (3.5-5.1)
[2016-10-09 07:24] VITALS: BP 113/73; PULSE 102; TEMP 36.5; O2SAT 94; Ht 170.2 cm; Wt 74.0 kg
[2016-10-09 07:24] LABS: MAGNESIUM 1.8 mg/dl (1.8-2.4); THYROID STIMULATING HORMONE 12.6 uIu/ml (0.300-4.500)
[2016-10-09 07:26] LABS: URINE MUCUS PRESENT (NONE PRSENT)
[2016-10-09] MEDS ORDERED: PANTOprazole INJ 80 MG in DEXTROSE 5% 100ML IV SCH (07:30)
--- NOTE | 2016-10-09 07:31 | DIAGNOSTIC IMAGING REPORT ---
(CHEST) THORAX WITHOUT CT DOSE: 401.37 mGy.cm CLINICAL HISTORY: 56 years-old Male with pneumothorax . Pneumothorax seen on comparison chest radiograph. Acute abdominal pain with nausea. History of metastatic kidney cancer. Follow-up study. TECHNIQUE: Multiaxial CT images of the chest were performed without contrast. A dose lowering technique was utilized adhering to the principles of ALARA. COMPARISON: PET CT 09/13/2016, acute abdominal series radiographs 10/09/2016. FINDINGS: No dominant thyroid nodule identified. Evaluation for adenopathy is limited without the use of IV contrast. Lower right paratracheal lymph node measures in the upper limits of normal and short axis, 8 mm, unchanged. This demonstrated mild FDG activity on comparison PET CT, indeterminate for metastasis or reactive change. No pathologic adenopathy by CT size criteria. Heart is normal in size without pericardial effusion. Coronary arterial calcifications are present. There is atherosclerosis of the aorta. Left paracentral epicardial lymph node, 7 mm has developed in the interval. Additional smaller nodules of the central epicardial fat pad are noted which appear unchanged. Small left pleural effusion is noted. Moderate upper lobe predominant centrilobular emphysematous changes are noted. There is a small left-sided pneumothorax, pleural separation 10 mm at the level of the left lung base. Scattered noncalcified pulmonary nodules are present bilaterally, suspicious for metastasis. Largest nodule measures 7 mm within the right lower lobe on image 207 with nodules throughout the left lung measuring in the 4 mm range. There is mild dependent bibasilar atelectasis. Mild amount of subcutaneous emphysema seen along the lateral left chest wall. Prior median sternotomy, new from prior exam. Stranding within the central epicardial fat likely postsurgical. There is evidence of recent CABG. Postsurgical changes are seen compatible with prior left-sided nephrectomy. Dilation of small bowel from the upper abdomen incidentally noted. Enteric tube is present with distal tip terminating near the gastroesophageal junction. Bones are grossly intact. IMPRESSION: 1. Interval median sternotomy and CABG with small left-sided hydropneumothorax and lateral left chest wall subcutaneous emphysema. Depending on the acuity of the recent surgery, these findings may be expected postsurgical changes. Correlate with prior history and recent postoperative comparison chest radiographs which are not available for review at time of dictation. 2. Multiple noncalcified bilateral multilobar pulmonary nodules are again noted, suspicious for metastatic disease. Please refer to PET/CT 09/13/2016 for further details. 3. Emphysema. 4. Dilated loops of small bowel within the upper abdomen are noted, better evaluated on CT abdomen and pelvis study of same day. 5. Enteric tube tube terminates at the gastroesophageal junction. Electronically signed by: Travis Pina M.D. 10/09/2016 7:30 AM Dictated Date/Time: 10/09/2016 7:17 AM
[2016-10-09] MEDS ORDERED: LEVALBUTEROL 1.25MG/0.5ML NEB INH PRN (07:45)
[2016-10-09] MEDS ORDERED: IPRATROPIUM BROMIDE NEB SOLN 0.02% 2.5 ML VIAL INH PRN (07:45)
[2016-10-09 07:46] VITALS: BP 118/74; PULSE 115; TEMP 36.3; O2SAT 94
--- NOTE | 2016-10-09 07:48 | DIAGNOSTIC IMAGING REPORT ---
ABD/PELVIS NO IV OR ORAL CONT HISTORY: 56 years-old Male eval for sbo acute abdominal pain with nausea and vomiting. Concern for small bowel obstruction. Follow-up exam. History of metastatic kidney cancer, recent prior median sternotomy and CABG as well as nephrectomy. COMPARISON: PET CT 09/13/2016, CT abdomen and pelvis 08/31/2016. TECHNIQUE: Multiple axial CT images of the abdomen and pelvis were obtained without contrast. A dose lowering technique was used consistent with the principals of ALARA. FINDINGS: Small left-sided hydropneumothorax is noted with lateral left chest wall subcutaneous emphysema and postoperative changes compatible with prior median sternotomy. These findings are better evaluated on CT chest of same day. Pulmonary nodules of the lung bases are also seen suggesting metastases measuring up to 6 mm. Evaluation of the solid organs is limited secondary to be marking artifact from positioning of patient's arms and lack of contrast. Within the limitations of the study, the liver, spleen, pancreas and right adrenal gland are unremarkable. Soft tissue stranding partially obscures the left adrenal gland. There is mild edema within the left perinephric space from recent left-sided nephrectomy. No residual mass is definitively seen within the left perirenal space. Punctate calcification within the interpolar right kidney may reflect a calculus or vascular calcification. Right ureter is normal in caliber. There is a Casey catheter present within a collapsed or bladder lumen. Air within urinary bladder lumen is likely from instrumentation. Small fat filled left inguinal hernia noted. There are calcifications of the vas deferens, associated with diabetes. Previously noted 5 mm soft tissue nodule within the left retroperitoneal fat redemonstrated on image 275. Moderate atherosclerotic disease involves the abdominal aorta and branch vessels. Postsurgical changes are also seen within the region of the left renal vein. The IVC no longer appears expanded, however evaluation is limited without IV contrast. No bulky adenopathy is identified. Enteric tube is present with distal tip terminating near the gastroesophageal junction. Stomach is distended with air-fluid level. Duodenum and jejunum are also dilated. The fecalized small bowel loop is noted within the right midabdomen on image 227. This is noted just proximal to transitioned collapsed distal bowel within the right lower abdomen. The colon is fluid-filled and does contain air without dilation. Distal ileum is primarily collapsed. No pneumoperitoneum or pneumatosis. Colonic diverticula are seen without diverticulitis. Post surgical changes are seen along the ventral abdominal wall. Bones are intact. No definite bony metastasis are identified. Severe intervertebral disc space narrowing L5-S1. IMPRESSION: 1. Moderately dilated stomach and proximal small bowel is noted with transitioned collapsed small bowel and distal ileum within the right lower quadrant. Findings suggest low-grade small bowel obstruction or alternatively postsurgical ileus. This can be correlated with small bowel follow-through and follow-up imaging. 2. No pneumoperitoneum or pneumatosis. 3. Air-fluid level layering within nondistended colon may reflect ileus or diarrheal state. 4. Recent left sided nephrectomy with mild likely postsurgical edema within the left perinephric space. No large postsurgical collection. 5. Small left-sided hydropneumothorax with lateral left chest wall subcutaneous emphysema and evidence of prior median sternotomy. Correlate with chest CT of same day. 6. Multiple noncalcified pulmonary nodules of the lung bases again seen suggesting metastasis. 7. 5 mm soft tissue nodule within the left retroperitoneal space at the level left of the upper pelvis is again seen, unchanged from PET CT 09/13/2016 which is suspicious for metastasis. The above report was generated using voice recognition software. It may contain grammatical, syntax or spelling errors. Electronically signed by: Travis Pina M.D. 10/09/2016 7:46 AM Dictated Date/Time: 10/09/2016 7:30 AM
[2016-10-09] MEDS ORDERED: POTASSIUM CHLR 10 MEQ / WTR 10 MEQ in PREMIXED WATER 100 ML IV ONE (08:00)
[2016-10-09] MEDS ORDERED: LEVALBUTEROL/IPRATROPIUM NEB INH STA (08:21)
[2016-10-09 08:22] LABS: FERRITIN 533.8 ng/ml (8.0-388.0)
[2016-10-09] MEDS ORDERED: IPRATROPIUM BROMIDE NEB SOLN 0.02% 2.5 ML VIAL INH STA (08:32)
[2016-10-09] MEDS ORDERED: LEVALBUTEROL 1.25MG/0.5ML NEB INH STA (08:32)
--- NOTE | 2016-10-09 08:33 | CONSULTATION REPORT ---
DATE OF CONSULTATION: 10/09/2016 Seen at the request of Dr. Matute from the ER and Dr. Erwin. SUMMARY: This is a 56-year-old gentleman who 5 days ago underwent left nephrectomy at [place] and was discharged apparently feeling fine, but he has had ongoing vomiting in the last 12 hours or so, was brought into the Emergency Room and found to have findings consistent with small-bowel obstruction and also positive C. diff. He has had some diarrhea associated with the C. diff. The patient had nephrectomy approximately 5 days ago and at that time he underwent a median sternotomy with removal of clot into the vena cava. He also stated that they put a tube on his left chest side which would explain why he may have a residual left pneumothorax. PAST MEDICAL HISTORY: Positive for coronary artery disease, hypotension. PAST SURGICAL HISTORY: He had coronary artery stenting in the past. FAMILY HISTORY: Unremarkable and noncontributory. PRESENT MEDICINES: In the chart was reviewed. PHYSICAL EXAMINATION: At this present time, Aman is in no acute distress. His NG tube is in place, actually advanced it a little bit. His last vitals showed him to have temperature of 36.6, he is tachycardic to the point of 115, his blood pressures varied 83/59 last. He is alert, coherent, in no distress. The median sternotomy incision extending to the abdomen is noted. It is healing well. There is no evidence of any drainage. Lungs are clear bilaterally. The abdomen is softly distended, he is nontender. The NG output has been minimal. As stated, it was advanced. The x-rays were reviewed. LABORATORY STUDIES: Showed hemoglobin of 9.8, WBC is 5.71 without left shift. His chemistries showed BUN of 38, creatinine 2.60, potassium 3.2. At this time, there is nothing surgically to be done. We will continue with NG drainage. The chest pneumothorax should resolve on its own and there is no need for any invasive procedure on that side. Of note, the patient at least radiographically had evidence of metastatic disease in both lungs for nodules prior to his nephrectomy. MTDD
--- NOTE | 2016-10-09 08:38 | HISTORY & PHYSICAL EXAMINATION ---
DATE OF ADMISSION: 10/09/2016 PRIMARY CARE DOCTOR: Dr. Montano. CHIEF COMPLAINT: Abdominal pain. HISTORY OF PRESENT ILLNESS: Medical history obtained from patient and records. Medical history is significant for renal mass likely malignancy left status post surgery, hypertension, CAD status post stenting, chronic anemia (baseline hemoglobin 10), past tobacco abuse, hypothyroidism. In August 2016, the patient had gross hematuria. CAT scan showed a 9 mm left renal mass with renal vein/IVC involvement. CT chest 09/2016 as part of staging workup showed multiple pulmonary nodules possibly metastatic disease, emphysema. Patient underwent open L radical nephrectomy (adrenal sparing), L renal vein/ IVC thrombectomy at [facility] 10/03 under by Urology and CT surgery. Two chest tubes left pleural and posterior mediastinal placed for drainage and subsequently removed. Patient was on the vent postop subsequently extubated on the same day. No pneumothorax on last CXR done during confinement dated 10/04. As per patient , he initially had postop constipation later followed by loose stools after laxative administration during confinement until discharge to home last October 07. At home, continuous diarrhea. Yesterday, increasing abdominal pain, distention, nausea, vomiting. No fever, no chills Poor appetite. Patient not urinating as much. Patient denies chest pain; admits to some shortness of breath, cough productive of white sputum noted during confinement at [facility] Patient brought to the Emergency Room. Initial x-ray showed bowel obstruction, small left pneumothorax. NGT placed. Subsequent note of bloody NGT drainage. Stool C. diff positive. IV Flagyl given in the ER. MEDICAL HISTORY: As above. SURGERIES: Nephrectomy HOME MEDICATIONS: Include, Norvasc, Lipitor, Plavix, lisinopril. ALLERGIES: TO BEE STING, BANANA. FAMILY HISTORY: Heart disease. PERSONAL AND SOCIAL HISTORY: Past tobacco abuse. No chronic intake of alcoholic beverages. 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 REVIEW OF SYSTEMS: As per HPI, all other ROS negative PHYSICAL EXAMINATION: VITAL SIGNS: Blood pressure was noted to be initially 86/50 later 100/70, pulse rate 115, RR 20, T 37 O2 94RA SKIN: Pallor. GENERAL: Uncomfortable, no respiratory distress. HEENT: Pale palpebral conjunctivae. Dry mucosa. NGT in place. NECK: No JVD. supple CHEST: Decreased breath sounds. HEART: Tachycardic. ABDOMEN: Some distension, nontender. EXTREMITIES: No edema, no tenderness. NEUROLOGIC: No gross focality. LABORATORY DATA: Hemoglobin was noted to be 10.7, hematocrit 32.7, white cell count 5.7, platelets 293. Sodium 131, potassium 3.4, chloride 93, CO2 27, BUN 37, creatinine 2.3, glucose 120. IMAGING STUDIES: CT abdomen and pelvis initial read showed left-sided pneumothorax partially visualized. Consider CT chest, intact tube noted. Dilated stomach, small bowel loops, and transition to right lower quadrant concerning for small-bowel obstruction, no pneumatosis. ASSESSMENT: 1. Hypotension secondary to hypovolemia secondary to SBO (recent L nephrectomy at [facility]), cdif diarrhea UGIB 2 to emesis 2 to SBO SBP improved after initial fluid resuscitation at the ER 2. hypokalemia, Acute renal failure secondary to above. 3. L renal mass (prob malignancy), L renal vein/IVC thrombi possible lung metastases sp open L radical nephrectomy (adrenal sparing), L renal vein/IVC thrombectomy ( [facility], 10/03/16) 4. Chronic anemia secondary to renal tumor, hemoglobin at baseline. 5. Pneumothorax left, probable secondary spontaneous pneumothorax, emphysematous lungs on imaging 6. Coronary artery disease status post stenting. 7. Hypothyroidism on meds, TSH noted to be elevated 8. Past tobacco abuse. PLAN: PCU baseline UA, monitor creatinine response to IV fluids. Nephrology consult if w/ o improvement Hold antihypertensives for now until BP consistently stable. replace K IV Flagyl for C. diff. Continue NGT decompression, Surgery consult RE SBO (ERMD already in touch with Dr. Kahn.) IV PPI Serial H&H, transfuse pRBCs if hemoglobin less than 8. (hx CAD) Anemia workup Appropriate to hold home Plavix for now GI consult RE UGIB CT chest RE pneumothorax Supplemental O2 CT surgery consult RE pneumothorax Check FT4 to determine need for thyroid medication dose adjustment. Deep venous thrombosis prophylaxis, SCDs. RE UGIB Full code. MTDD
[2016-10-09] MEDS: NSS + 20MEQ KCL 1000ML 1,000 ML IV SCH ×3 (08:50→23:57)
[2016-10-09] MEDS: PANTOprazole INJ 40 MG in DEXTROSE 5% 100ML IV SCH ×4 (08:51→22:41)
[2016-10-09] MEDS: POTASSIUM CHLR 10 MEQ / WTR 10 MEQ in PREMIXED WATER 100 ML IV SCH ×3 (09:54→12:08)
[2016-10-09 10:43] VITALS: BP 127/88; PULSE 117; TEMP 37.2; O2SAT 97
[2016-10-09 12:19] LABS: HEMATOCRIT 30.5 % (42-52)
[2016-10-09 12:59] LABS: BUN/CREATININE RATIO 20.2 (10-20); CALCIUM 7.7 mg/dl (8.5-10.1); CREATININE 1.9 mg/dl (0.60-1.40); POTASSIUM 3.7 mmol/L (3.5-5.1)
[2016-10-09] MEDS: METRONIDAZOLE / NSS 500 MG in PREMIXED NSS 100 ML IV SCH ×2 (13:06→21:25)
--- NOTE | 2016-10-09 13:06 | SURGICAL CONSULTATION ---
DATE OF CONSULTATION: 10/09/2016 REASON FOR CONSULTATION: Left pneumothorax. HISTORY OF PRESENT ILLNESS: This is a 56-year-old male who recently had a midline sternotomy and midline laparotomy and one large incision to undergo a radical left nephrectomy, but also had propagation of the thrombus back in the renal vein into the inferior vena cava. He was apparently placed on bypass at that time this was done. I do not have his old records and it is unclear to me whether he underwent circulatory arrest. At any rate, he has other issues including coronary artery disease, chronic anemia, history of tobacco abuse, hypothyroidism who was found to have a left renal mass. His surgery was just done last week. He had 2 chest tubes in the left; apparently one was in the mediastinum and one was in the left chest. This was pulled [address] scan was obtained when the patient presented with continuous diarrhea and apparently has Clostridium difficile colitis. He has an NG tube in place. A CT scan shows he does have some small nodules, the largest of which is 7 mm on right side which may represent metastatic disease. I was asked to comment on this pneumothorax. PAST MEDICAL HISTORY: 1. Renal cell carcinoma left kidney. 2. History of cigarette smoking. 3. Hypothyroidism. 4. Clostridium difficile colitis. 5. Chronic anemia. 6. Hypertension. 7. Hypercholesterolemia. 8. Coronary artery disease. PAST SURGICAL HISTORY: Midline sternotomy with a midline abdominal incision for a radical left nephrectomy and removal of the inferior vena caval thrombus. MEDICATIONS: 1. Plavix. 2. Lisinopril. 3. Lipitor. 4. Norvasc. ALLERGIES: No known drug allergies. SOCIAL HISTORY: The patient has smoked his entire life. 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 He has never been abuser of alcohol. FAMILY MEDICAL HISTORY: The patient's mother at 62 from complications of diabetes mellitus. Father of 82 and had prostate cancer as well as lung cancer. He had a brother who from "alcohol and drugs" at 52. He has 3 other siblings who are alive, although he has had a sister who has coronary artery disease and apparent chronic obstructive pulmonary disease. He also has a daughter who suffers from some cardiac and pulmonary issues. He has 1 grandchild who is healthy. REVIEW OF SYSTEMS: The patient recently discharged home from [facility] in [place] after undergoing a radical nephrectomy via midline sternotomy and midline laparotomy. He really has not been eating well. He became dehydrated and he had Clostridium difficile colitis and had to be admitted. He also has some dilatation of his bowel loops and has an NG tube in place. He is still nauseated. He was dehydrated when he came in. His wounds have been healing well and he has no other wound breakdown. He denies any edema. He has had no neurologic events such as amaurosis fugax, transient ischemic attack. He has been complaining of some shortness of breath. He has been very mild. He has got good saturations on 2 liters of O2. He had chest pain from his incision. PHYSICAL EXAMINATION: GENERAL: This is an ill-appearing white male who appears much older than his stated age 56. He is awake and alert. NG tube is in place. HEENT: He has nasal cannula in place. His oral mucosa is a bit dry. NECK: Thin and supple. I detect no supraclavicular or cervical lymphadenopathy or neck vein distention. He has no carotid bruits. He has midline sternotomy and midline abdominal incisions, main incision is healing well. ABDOMEN: He has high pitched bowel sounds of his bowels, but his abdomen is soft. The NG tube is draining bilious fluid. LUNGS: He has decreased breath sounds in both bases upon auscultation of his lung. He has no click of his chest. HEART: He has a regular rate and rhythm of his heart. EXTREMITIES: He has good peripheral pulses. He has no peripheral edema. No joint effusions. NEUROLOGIC: He is awake, alert and oriented. ASSESSMENT AND PLAN: Small left pneumothorax noted on CT scan more than likely this is due to his recent surgery. I would simply repeat his chest x-ray serially as I feel this will resolve.
--- NOTE | 2016-10-09 14:46 | GASTROINTESTINAL CONSULTATION ---
DATE OF CONSULTATION: 10/09/2016 RACE: . ATTENDING PHYSICIAN: Dr. Erwin. CONSULTING PHYSICIAN: Dr. Mcdonald. REASON FOR CONSULTATION: Upper GI bleed. HISTORY OF PRESENT ILLNESS: Aman Lobato is a 56-year-old male who underwent a left nephrectomy as well as thrombus removal from the renal vein and the IVC at [facility]. He did have presentation to the ER last night with complaints of generalized weakness, bloating, and unable to urinate, was also noted to have green vomitus. He underwent laboratory testing which revealed an H&H of 10.7 and 30.7. His D-dimer was 15,350, his liver panel was unremarkable. His BUN and creatinine were elevated at 37 and 2.3. Because the patient had complaints of diarrhea, he also underwent a CT scan of his abdomen and pelvis and was noted to have a moderately dilated stomach and proximal small bowel, suggesting a low grade small-bowel obstruction or postsurgical ileus. There was no pneumoperitoneum. He also was noted to have a recent left-sided nephrectomy, small left hydropneumothorax and multiple noncalcified pulmonary nodules in lung bases, suggesting metastatic disease and a questionable left retroperitoneal metastatic deposit. The chest CT showed sternotomy with left-sided hydropneumothorax, lateral left chest wall subcutaneous emphysema and again the bilateral multilobar pulmonary nodules were noted, suspicious for metastatic disease. The patient did undergo stool testing for C. diff and was noted to return positive. He was subsequently admitted. He was seen by both Dr. Kahn as well as Dr. Sanchez. He did not believe any intervention was needed for the small left pneumothorax, which they both felt would resolve spontaneously on its own and recommended serial imaging. At the time that I saw the patient, he had an NG tube that was in his right naris and had drained approximately 500 mL of green liquid. He states that his abdomen was much less distended. He states that his abdomen felt much improved, though he was not happy with having the NG tube and asked to have it removed. Discussed with him its role and treating his gastric distention as well as his other upper GI findings on imaging. He was agreeable to leave it in place. He was also started on Flagyl 500 mg IV q. 8 hours for his C. diff and was on a Protonix drip at 8 mg per hour. He states that he feels "worn out." He denies any further complaints. PAST MEDICAL HISTORY: Includes renal cell carcinoma with probable metastatic disease, hypertension, coronary artery disease, chronic anemia, history of tobacco abuse, hypothyroidism, hematuria. PAST SURGICAL HISTORY: Includes left nephrectomy as well as sternotomy with removal of clot into the IVC. ALLERGIES: BEE STINGS AND BANANAS. MEDICATIONS: At present, metronidazole 500 mg IV q. 8 hours, Protonix 8 mg per hour drip, Atrovent via nebulizer every 4 hours p.r.n. shortness of breath, Xopenex via nebulizer q. 4 p.r.n. shortness of breath, Tylenol 650 p.o. q. 4 p.r.n. pain or fever, Dilaudid 0.5 mg IV q. 4 p.r.n. pain, Ultram 50 mg p.o. q. 6 p.r.n. pain not relieved by Tylenol, Zofran 4 mg IV q. 6 p.r.n. nausea, Phenergan 12.5 mg IV q. 6 p.r.n. nausea or vomiting, Ativan 0.5 mg IV q. 4 p.r.n. anxiety or agitation. SOCIAL HISTORY: He is retired, on disability, history of tobacco abuse. Denies alcohol or illicit drug use. FAMILY HISTORY: Negative for GI malignancy or inflammatory bowel disease. REVIEW OF SYSTEMS: Negative q25-ltdzpy review other than pertinent positives listed in the HPI. PHYSICAL EXAMINATION: VITAL SIGNS: Temp 37.2, pulse 117, respirations 20, blood pressure 127/88, pulse ox 97% on 2 liters via nasal cannula. GENERAL: He is alert, oriented x3, cooperative, chronic ill appearing, in no acute distress. HEAD: Normocephalic, atraumatic. EYES: Pupils equally round. Extraocular muscles are intact. ENT: NG tube in the right naris. Oropharynx is clear. NECK: Soft, supple. CHEST: Decreased breath sounds in bilateral bases. CARDIOVASCULAR SYSTEM: Regular rate and rhythm. ABDOMEN: There is a large incisional scar on the chest, extending to the lower abdomen in midline. Abdomen is soft, nontender, nondistended. There are positive bowel sounds. EXTREMITIES: No clubbing, cyanosis, or edema. LABORATORY STUDIES AND RADIOGRAPHIC STUDIES: Were reviewed in the HPI. IMPRESSION: A 56-year-old male status post left nephrectomy for renal cell carcinoma with probable metastatic disease, left-sided small pneumothorax which is resolving, nausea, vomiting, diarrhea with questionable postop ileus and Clostridium difficile colitis. PLAN: At the present time, I would recommend that the patient be continued on IV Flagyl therapy until NG tube can be pulled. Once his ileus/partial small-bowel obstruction resolves, the patient should be placed on vancomycin 125 mg p.o. q.i.d. Until that time I would recommend continuing supportive care. I would also recommend continuing the Protonix drip at this time, though I do not believe the patient is having an acute upper GI bleed as his NG aspirate is green and has no evidence of blood. I would not recommend that he undergo any invasive testing at this time due to his multiple medical comorbidities at this time and the fact that he is not exhibiting any signs of overt GI blood loss. We will follow his clinical course and make further recommendations as needed. Once again, thanks for allowing me to participate in the care of this patient. If you have any further questions, please do not hesitate in contacting me.
[2016-10-09 15:50] VITALS: BP 137/88; PULSE 118; TEMP 37.1; O2SAT 94
[2016-10-09] MEDS: ONDANSETRON INJ 2 MG/ML 2 ML VIAL IV PRN ×2 (17:15→21:26)
[2016-10-09 18:20] LABS: HEMATOCRIT 30.3 % (42-52)
[2016-10-09 19:42] VITALS: BP 121/81; PULSE 118; TEMP 36.8; O2SAT 94
[2016-10-09] MEDS: HYDROmorphone INJ 0.5 MG/0.5 ML SYR IV PRN (21:26)
[2016-10-09 22:49] LABS: HEMATOCRIT 31.4 % (42-52)
[2016-10-09 23:01] LABS: BUN/CREATININE RATIO 25.2 (10-20); CREATININE 1.3 mg/dl (0.60-1.40); POTASSIUM 3.6 mmol/L (3.5-5.1)
[2016-10-09 23:27] VITALS: BP 127/82; PULSE 121; TEMP 37; O2SAT 93
[2016-10-10] VITALS (7 sets, daily range): BP systolic 115–128; BP diastolic 63–83; PULSE 107–119; TEMP 36.6–37; O2SAT 92–98
[2016-10-10] MEDS: HYDROmorphone INJ 0.5 MG/0.5 ML SYR IV PRN (03:04)
[2016-10-10] MEDS: METRONIDAZOLE / NSS 500 MG in PREMIXED NSS 100 ML IV SCH (05:59)
[2016-10-10 06:32] LABS: HEMATOCRIT 30.4 % (42-52); MEAN CELL VOLUME 86.4 fL (80-100); MEAN CORPUSCULAR HEMOGLOBIN 28.1 pg (25-34); MEAN CORPUSCULAR HGB CONC 32.6 g/dl (32-36); MEAN PLATELET VOLUME 9.9 fL (7.4-10.4); PLATELET COUNT 351 K/uL (130-400); RED BLOOD COUNT 3.52 M/uL (4.7-6.1); WHITE BLOOD COUNT 13.23 K/uL (4.8-10.8)
[2016-10-10 07:04] LABS: BASO % 0.2 %; BASO ABS # 0.02 K/uL (0-0.2); COMPLETE YES; EOS % 0.7 %; IG% 0.4 %; LYMPH % 7.2 %; LYMPH ABS # 0.95 K/uL (1.2-3.4); MONO % 14.9 %; NEUT % 76.6 %; TOXIC GRANULATION 1+
[2016-10-10 07:06] LABS: BUN/CREATININE RATIO 23.3 (10-20); CALCIUM 8.2 mg/dl (8.5-10.1); CREATININE 1.2 mg/dl (0.60-1.40); POTASSIUM 3.6 mmol/L (3.5-5.1)
--- NOTE | 2016-10-10 08:03 | Surgery Progress Note ---
Surgery Progress Note Date of Service Oct 10, 2016. Subjective + complaints (NG), + bowel movement Objective Vital Signs: Date Time Temp Pulse Resp B/P (MAP) Pulse Ox O2 Delivery O2 Flow Rate FiO2 10/10/16 07:36 36.8 109 18 126/83 (97) 98 10/10/16 04:00 Nasal Cannula 2.0 10/10/16 02:59 36.8 115 22 118/83 (95) 92 Nasal Cannula 2.0 10/09/16 23:59 Nasal Cannula 2.0 10/09/16 23:27 37.0 121 18 127/82 (97) 93 Nasal Cannula 2.0 10/09/16 20:00 Room Air 10/09/16 19:42 36.8 118 22 121/81 (94) 94 Nasal Cannula 2.0 10/09/16 16:00 Room Air 10/09/16 15:50 37.1 118 22 137/88 (104) 94 Nasal Cannula 2.0 10/09/16 12:00 Room Air 10/09/16 10:43 37.2 117 20 127/88 (101) 97 Nasal Cannula 2.0 Physical Exam: nasogastric drainage (50) Abdomen: non tender, soft, + distended (minimal) Laboratory Results: Results Past 24 Hours Test 10/09/16 12:09 10/09/16 16:10 10/09/16 18:00 10/09/16 20:17 Range/Units Hemoglobin 10.0 10.2 14.0-18.0 g/dL Hematocrit 30.5 30.3 42-52 % Sodium Level 134 136-145 mmol/L Potassium Level 3.7 3.5-5.1 mmol/L Chloride Level 98 98-107 mmol/L Carbon Dioxide Level 27 21-32 mmol/L Anion Gap 9.0 3-11 mmol/L Blood Urea Nitrogen 38 7-18 mg/dl Creatinine 1.90 0.60-1.40 mg/dl Est Creatinine Clear Calc Drug Dose 39.6 ml/min Estimated GFR () 44.1 Estimated GFR (Non- 38.0 BUN/Creatinine Ratio 20.2 10-20 Random Glucose 112 70-99 mg/dl Calcium Level 7.7 8.5-10.1 mg/dl Bedside Glucose 124 118 70-99 mg/dl Test 10/09/16 22:10/10/16 06:13 Range/Units Hemoglobin 9.9 9.9 14.0-18.0 g/dL Hematocrit 31.4 30.4 42-52 % Sodium Level 137 140 136-145 mmol/L Potassium Level 3.6 3.6 3.5-5.1 mmol/L Chloride Level 102 105 98-107 mmol/L Carbon Dioxide Level 28 28 21-32 mmol/L Anion Gap 7.0 7.0 3-11 mmol/L Blood Urea Nitrogen 33 28 7-18 mg/dl Creatinine 1.30 1.20 0.60-1.40 mg/dl Est Creatinine Clear Calc Drug Dose 57.9 62.7 ml/min Estimated GFR () 69.7 76.8 Estimated GFR (Non- 60.1 66.3 BUN/Creatinine Ratio 25.2 23.3 10-20 Random Glucose 119 109 70-99 mg/dl Calcium Level 8.0 8.2 8.5-10.1 mg/dl Albumin 2.5 3.4-5.0 gm/dl White Blood Count 13.23 4.8-10.8 K/uL Red Blood Count 3.52 4.7-6.1 M/uL Mean Corpuscular Volume 86.4 80-100 fL Mean Corpuscular Hemoglobin 28.1 25-34 pg Mean Corpuscular Hemoglobin Concent 32.6 32-36 g/dl Platelet Count 351 130-400 K/uL Mean Platelet Volume 9.9 7.4-10.4 fL Neutrophils (%) (Auto) 76.6 % Lymphocytes (%) (Auto) 7.2 % Monocytes (%) (Auto) 14.9 % Eosinophils (%) (Auto) 0.7 % Basophils (%) (Auto) 0.2 % Neutrophils # (Auto) 10.15 1.4-6.5 K/uL Lymphocytes # (Auto) 0.95 1.2-3.4 K/uL Monocytes # (Auto) 1.97 0.11-0.59 K/uL Eosinophils # (Auto) 0.09 0-0.5 K/uL Basophils # (Auto) 0.02 0-0.2 K/uL RDW Standard Deviation 42.1 36.4-46.3 fL RDW Coefficient of Variation 13.3 11.5-14.5 % Immature Granulocyte % (Auto) 0.4 % Immature Granulocyte # (Auto) 0.05 0.00-0.02 K/uL Toxic Granulation 1+ Assessment & Plan C. diff, post-op ileus improved, will d/c NG can have clears seen with Dr. Kahn
[2016-10-10] MEDS ORDERED: PANTOprazole INJ 40 MG in SYRINGE 0 ML IV SCH (09:00)
--- NOTE | 2016-10-10 09:11 | DIAGNOSTIC IMAGING REPORT ---
CHEST ONE VIEW PORTABLE HISTORY: left pneumothorax COMPARISON: Chest and abdominal series 10/09/2016. FINDINGS: Linear densities at the left lung base favor subsegmental atelectasis or scarring. Lungs otherwise clear. The heart is normal in size. No pleural effusions. Small left apical pneumothorax persists with a maximal pleural gap of 1 cm. pneumothorax. Poststernotomy changes. IMPRESSION: No change in the small left apical pneumothorax. Electronically signed by: Tyrone Tyler M.D. 10/10/2016 9:10 AM Dictated Date/Time: 10/10/2016 9:02 AM
--- NOTE | 2016-10-10 11:01 | Progress Note ---
Internal Med Progress Note Date of Service: Oct 09, 2016. Provider Documentation: SUBJECTIVE: The patient was seen and examined Abdominal pain is much better Denies any nausea and or vomiting NG tube is out OBJECTIVE: Vital Signs-as noted below Exam: General-No distress at rest OOB on a chair Eyes-normal ENT-normal Neck-Supple Lungs-Clear to ausucltate bilaterally Heart-Regular,no murmur appreciated Abdomen-Soft ,tender,S/O Extensive Surgery ,bowel sound present Extremities-Trace edema bilaterally Neuro-AAOx3 Lab data as noted below. ASSESSMENT & PLAN: SBO Presented with abdominal pain with distention complicated by C. diff. Colitis S/P recent Extensive abdominal surgery as below NPO,NGT,Symptomatic medications and Iv Flagyl Surgery input appreciated Clinically improving NGT is discontinued,clears started Started on Oral Vancomycin Hypotension Likely secondary to hypovolemia secondary to SBO (recent L nephrectomy at [facility]), Sepsis due to C dif diarrhea UGIB 2 to emesis 2 to SBO Blood pressure is maintained Acute renal failure secondary to above. 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 Serial H&H, transfuse pRBCs if hemoglobin less than 8. (hx CAD) IV PPI Anemia workup Plavix is on hold for now GI consult RE UGIB-appreciate input Restart Plavix ,Hb remains stable Coronary artery disease status post stenting. No acute symptoms now Hypothyroidism on meds, TSH noted to be elevated Continue current dose of Synthroid Past tobacco abuse. Deep venous thrombosis prophylaxis, SCDs. RE UGIB Full code. Vital Signs: Date Time Temp Pulse Resp B/P (MAP) Pulse Ox O2 Delivery O2 Flow Rate FiO2 10/10/16 07:36 36.8 109 18 126/83 (97) 98 10/10/16 04:00 Nasal Cannula 2.0 10/10/16 02:59 36.8 115 22 118/83 (95) 92 Nasal Cannula 2.0 10/09/16 23:59 Nasal Cannula 2.0 10/09/16 23:27 37.0 121 18 127/82 (97) 93 Nasal Cannula 2.0 10/09/16 20:00 Room Air 10/09/16 19:42 36.8 118 22 121/81 (94) 94 Nasal Cannula 2.0 10/09/16 16:00 Room Air 10/09/16 15:50 37.1 118 22 137/88 (104) 94 Nasal Cannula 2.0 10/09/16 12:00 Room Air Lab Results: Results Past 24 Hours Test 10/09/16 12:09 10/09/16 16:10 10/09/16 18:00 10/09/16 20:17 Range/Units Hemoglobin 10.0 10.2 14.0-18.0 g/dL Hematocrit 30.5 30.3 42-52 % Sodium Level 134 136-145 mmol/L Potassium Level 3.7 3.5-5.1 mmol/L Chloride Level 98 98-107 mmol/L Carbon Dioxide Level 27 21-32 mmol/L Anion Gap 9.0 3-11 mmol/L Blood Urea Nitrogen 38 7-18 mg/dl Creatinine 1.90 0.60-1.40 mg/dl Est Creatinine Clear Calc Drug Dose 39.6 ml/min Estimated GFR () 44.1 Estimated GFR (Non- 38.0 BUN/Creatinine Ratio 20.2 10-20 Random Glucose 112 70-99 mg/dl Calcium Level 7.7 8.5-10.1 mg/dl Bedside Glucose 124 118 70-99 mg/dl Test 10/09/16 22:30 10/10/16 06:13 Range/Units Hemoglobin 9.9 9.9 14.0-18.0 g/dL Hematocrit 31.4 30.4 42-52 % Sodium Level 137 140 136-145 mmol/L Potassium Level 3.6 3.6 3.5-5.1 mmol/L Chloride Level 102 105 98-107 mmol/L Carbon Dioxide Level 28 28 21-32 mmol/L Anion Gap 7.0 7.0 3-11 mmol/L Blood Urea Nitrogen 33 28 7-18 mg/dl Creatinine 1.30 1.20 0.60-1.40 mg/dl Est Creatinine Clear Calc Drug Dose 57.9 62.7 ml/min Estimated GFR () 69.7 76.8 Estimated GFR (Non- 60.1 66.3 BUN/Creatinine Ratio 25.2 23.3 10-20 Random Glucose 119 109 70-99 mg/dl Calcium Level 8.0 8.2 8.5-10.1 mg/dl Albumin 2.5 3.4-5.0 gm/dl White Blood Count 13.23 4.8-10.8 K/uL Red Blood Count 3.52 4.7-6.1 M/uL Mean Corpuscular Volume 86.4 80-100 fL Mean Corpuscular Hemoglobin 28.1 25-34 pg Mean Corpuscular Hemoglobin Concent 32.6 32-36 g/dl Platelet Count 351 130-400 K/uL Mean Platelet Volume 9.9 7.4-10.4 fL Neutrophils (%) (Auto) 76.6 % Lymphocytes (%) (Auto) 7.2 % Monocytes (%) (Auto) 14.9 % Eosinophils (%) (Auto) 0.7 % Basophils (%) (Auto) 0.2 % Neutrophils # (Auto) 10.15 1.4-6.5 K/uL Lymphocytes # (Auto) 0.95 1.2-3.4 K/uL Monocytes # (Auto) 1.97 0.11-0.59 K/uL Eosinophils # (Auto) 0.09 0-0.5 K/uL Basophils # (Auto) 0.02 0-0.2 K/uL RDW Standard Deviation 42.1 36.4-46.3 fL RDW Coefficient of Variation 13.3 11.5-14.5 % Immature Granulocyte % (Auto) 0.4 % Immature Granulocyte # (Auto) 0.05 0.00-0.02 K/uL Toxic Granulation 1+
--- NOTE | 2016-10-10 11:04 | DIAGNOSTIC IMAGING REPORT ---
KUB CLINICAL HISTORY: Reevaluate ileus. COMPARISON STUDY: Abdominal series and CT of the abdomen and pelvis October 09, 2016. FINDINGS: There is persistent moderate small bowel dilatation. Numerous loops of small bowel are moderately dilated. There is scattered colonic and rectal gas. There are left abdominal surgical clips. A small left hydropneumothorax is better depicted on chest radiographs from earlier today. IMPRESSION: 1. No significant change in moderate small bowel dilatation with scattered colonic gas. The findings could reflect a partial small bowel obstruction or ileus. 2. Small left hydropneumothorax which is better depicted on the chest radiograph from earlier today. Electronically signed by: James Otero M.D. 10/10/2016 11:03 AM Dictated Date/Time: 10/10/2016 10:58 AM
[2016-10-10] MEDS ORDERED: CLOPIDOGREL BISULFATE 75 MG TAB PO ONE (11:15)
[2016-10-10] MEDS: ACETAMINOPHEN 325 MG TAB PO PRN ×2 (11:37→15:32)
--- NOTE | 2016-10-10 14:03 | Gastroenterology Progress Note ---
Progress Note Date of Service: Oct 10, 2016 Subjective Pt evaluation today including: conversation w/ patient, physical exam, chart review, lab review, review of inpatient medication list Pt's NGT removed this AM, he started CL diet. Been passing flatus, still having diarrhea. Denies any abd pain, n/v. Review of Systems Constitutional: No fever, No chills Respiratory: No cough, No shortness of breath Cardiac: No chest pain Abdomen: + diarrhea, No pain, No nausea, No vomiting Medications Current Inpatient Medications Medications (Trade) Dose Ordered Sig/Francisco Javier Route Start Time Stop Time Status Last Admin Dose Admin Acetaminophen (Tylenol Tab) 650 mg Q4H PRN PO 10/09/16 07:00 11/08/16 06:59 10/10/16 11:37 650 MG Hydromorphone HCl (Dilaudid Inj) 0.5 mg Q4H PRN IV 10/09/16 07:00 10/23/16 06:59 10/10/16 03:04 0.5 MG Tramadol HCl (Ultram Tab) not relieved by tylenol @ Q6H PRN PO 10/09/16 07:00 11/08/16 06:59 Ondansetron HCl (Zofran Inj) 4 mg Q6H PRN IV 10/09/16 07:00 11/08/16 06:59 10/09/16 21:26 4 MG Promethazine HCl 12.5 mg/Sodium Chloride 50.5 ml @ 204 mls/hr Q6H PRN IV 10/09/16 07:00 11/08/16 06:59 10/09/16 10:57 204 MLS/HR Lorazepam (Ativan Inj) 0.5 mg Q4H PRN IV 10/09/16 07:00 11/08/16 06:59 Ipratropium [place] (Atrovent 0.02% 0.5MG/2.5ML Neb) 0.5 mg Q4H PRN INH 10/09/16 07:45 11/08/16 07:44 Levalbuterol (Xopenex 1.25MG/ 0.5ML Neb) 1.25 mg Q4H PRN INH 10/09/16 07:45 11/08/16 07:44 Potassium Chloride/Sodium Chloride 1,000 ml @ 60 mls/hr [id number] IV 10/09/16 23:15 11/08/16 07:29 10/09/16 23:57 60 MLS/HR Vancomycin HCl (Vancomycin Oral Soln) 125 mg QID PO 10/10/16 13:00 10/24/16 12:59 Amlodipine Besylate (Norvasc Tab) 10 mg QAM PO 10/11/16 09:00 11/10/16 08:59 Atorvastatin Calcium (Lipitor Tab) 40 mg QPM PO 10/10/16 21:00 11/09/16 20:59 Clopidogrel Bisulfate (plAVix TAB) 75 mg QAM PO 10/11/16 09:00 11/10/16 08:59 Lisinopril (Zestril Tab) 10 mg QAM PO 10/11/16 09:00 11/10/16 08:59 Thyroid ([place] Thyroid Tab) 60 mg Q7D@0900 PO 10/15/16 09:00 11/14/16 08:59 Thyroid ([place] Thyroid Tab) 120 mg MoTuWeThFrSa@0900 PO 10/11/16 09:00 11/10/16 08:59 Pantoprazole Sodium (Protonix Tab) 40 mg BID PO 10/10/16 21:00 11/09/16 20:59 Raspberry (Raspberry Syrup 5ml Cup) 5 ml QID PO 10/10/16 13:00 10/24/16 12:59 Objective Vital Signs Date Time Temp Pulse Resp B/P (MAP) Pulse Ox O2 Delivery O2 Flow Rate FiO2 10/10/16 13:19 Room Air 10/10/16 12:00 Room Air 10/10/16 11:53 37.0 119 18 128/63 (84) 96 10/10/16 08:00 Room Air 10/10/16 07:36 36.8 109 18 126/83 (97) 98 10/10/16 04:00 Nasal Cannula 2.0 10/10/16 02:59 36.8 115 22 118/83 (95) 92 Nasal Cannula 2.0 10/09/16 23:59 Nasal Cannula 2.0 10/09/16 23:27 37.0 121 18 127/82 (97) 93 Nasal Cannula 2.0 10/09/16 20:00 Room Air 10/09/16 19:42 36.8 118 22 121/81 (94) 94 Nasal Cannula 2.0 10/09/16 16:00 Room Air 10/09/16 15:50 37.1 118 22 137/88 (104) 94 Nasal Cannula 2.0 Physical Exam General Appearance: WD/WN, no apparent distress Eyes: normal inspection, PERRL, EOMI Neck: supple, no JVD, trachea midline Respiratory/Chest: no respiratory distress, no accessory muscle use, + decreased breath sounds (L upper lobes ) Cardiovascular: regular rate, rhythm, no gallop, no murmur Abdomen: normal bowel sounds, non tender, soft Extremities: normal inspection, no pedal edema, no calf tenderness Neurologic/Psych: alert, normal mood/affect, oriented x 3 Skin: normal color, no jaundice, no rash Laboratory Results Last 24 Hours Test 10/09/16 16:10 10/09/16 18:00 10/09/16 20:17 10/09/16 22:30 Bedside Glucose 124 mg/dl 118 mg/dl Hemoglobin 10.2 g/dL 9.9 g/dL Hematocrit 30.3 % 31.4 % Sodium Level 137 mmol/L Potassium Level 3.6 mmol/L Chloride Level 102 mmol/L Carbon Dioxide Level 28 mmol/L Anion Gap 7.0 mmol/L Blood Urea Nitrogen 33 mg/dl Creatinine 1.30 mg/dl Est Creatinine Clear Calc Drug Dose 57.9 ml/min Estimated GFR () 69.7 Estimated GFR (Non- 60.1 BUN/Creatinine Ratio 25.2 Random Glucose 119 mg/dl Calcium Level 8.0 mg/dl Albumin 2.5 gm/dl Test 10/10/16 06:13 White Blood Count 13.23 K/uL Red Blood Count 3.52 M/uL Hemoglobin 9.9 g/dL Hematocrit 30.4 % Mean Corpuscular Volume 86.4 fL Mean Corpuscular Hemoglobin 28.1 pg Mean Corpuscular Hemoglobin Concent 32.6 g/dl Platelet Count 351 K/uL Mean Platelet Volume 9.9 fL Neutrophils (%) (Auto) 76.6 % Lymphocytes (%) (Auto) 7.2 % Monocytes (%) (Auto) 14.9 % Eosinophils (%) (Auto) 0.7 % Basophils (%) (Auto) 0.2 % Neutrophils # (Auto) 10.15 K/uL Lymphocytes # (Auto) 0.95 K/uL Monocytes # (Auto) 1.97 K/uL Eosinophils # (Auto) 0.09 K/uL Basophils # (Auto) 0.02 K/uL RDW Standard Deviation 42.1 fL RDW Coefficient of Variation 13.3 % Immature Granulocyte % (Auto) 0.4 % Immature Granulocyte # (Auto) 0.05 K/uL Toxic Granulation 1+ Sodium Level 140 mmol/L Potassium Level 3.6 mmol/L Chloride Level 105 mmol/L Carbon Dioxide Level 28 mmol/L Anion Gap 7.0 mmol/L Blood Urea Nitrogen 28 mg/dl Creatinine 1.20 mg/dl Est Creatinine Clear Calc Drug Dose 62.7 ml/min Estimated GFR () 76.8 Estimated GFR (Non- 66.3 BUN/Creatinine Ratio 23.3 Random Glucose 109 mg/dl Calcium Level 8.2 mg/dl Assessment and Plan Pt is a 56 y/o male w recent L nephrectomy for renal cell carcinoma, possible metastatic disease, L pneumothorax, currently followed for ileus and Cdiff. - CL diet - Repeat KUB - Continue Protonix 40mg BID - Ok to change Flagyl to Vancomycin 125mg QID - Avoid narcotics I have seen, examined, and agree with the plan as outlined above by ASHISH Shaw. -No signs of bleeding -Increase PPI to BID -If has further evidence then will plan EGD -Has green/brown reported stool
--- NOTE | 2016-10-10 14:13 | SURGERY PROGRESS NOTE ---
DATE: 10/10/2016 DATE: 10/10/2016 Mr. Lobato has now been weaned off of oxygen. I thought his x-ray looked quite good today. I did order one this morning. He has a very small pneumothorax, but he sounds fine. At this point, I would not do anything different. I believe this is postop changes after his chest tube was removed and I would not intervene further. I would probably keep him on oxygen while he is here; however, this will help wright nitrogen out and decrease the size of the pneumothorax.
[2016-10-10] MEDS: RASPBERRY SYRUP 5 ML UDP PO SCH ×3 (14:48→20:06)
[2016-10-10] MEDS: VANCOMYCIN HCL 125 MG/2.5ML SOLN PO SCH ×3 (14:49→20:06)
[2016-10-10] MEDS: NSS + 20MEQ KCL 1000ML 1,000 ML IV SCH (15:17)
[2016-10-10] MEDS: ATORVASTATIN 20 MG TAB PO SCH (20:06)
[2016-10-10] MEDS: PANTOprazole SOD 40 MG TAB PO SCH (20:06)
[2016-10-10 23:39] LABS: BUN/CREATININE RATIO 21.4 (10-20); MAGNESIUM 1.9 mg/dl (1.8-2.4); POTASSIUM 3.4 mmol/L (3.5-5.1)
[2016-10-11] VITALS (7 sets, daily range): BP systolic 112–139; BP diastolic 66–83; PULSE 79–122; TEMP 36.3–37.1; O2SAT 93–95
[2016-10-11] MEDS: ACETAMINOPHEN 325 MG TAB PO PRN ×2 (00:01→21:13)
[2016-10-11] MEDS ORDERED: POTASSIUM CHLORIDE 10 MEQ TABCR PO STA (00:07)
[2016-10-11 05:45] LABS: BASO % 0.1 %; BASO ABS # 0.02 K/uL (0-0.2); COMPLETE YES; EOS % 2.9 %; IG% 0.8 %; LYMPH % 8.6 %; LYMPH ABS # 1.83 K/uL (1.2-3.4); MEAN CELL VOLUME 86.8 fL (80-100); MEAN CORPUSCULAR HEMOGLOBIN 27.2 pg (25-34); MEAN CORPUSCULAR HGB CONC 31.3 g/dl (32-36); MEAN PLATELET VOLUME 10.1 fL (7.4-10.4); MONO % 11.1 %; NEUT % 76.5 %; PLATELET COUNT 411 K/uL (130-400); RED BLOOD COUNT 3.57 M/uL (4.7-6.1); WHITE BLOOD COUNT 21.31 K/uL (4.8-10.8)
[2016-10-11 06:11] LABS: BUN/CREATININE RATIO 19.4 (10-20); CALCIUM 7.9 mg/dl (8.5-10.1); CREATININE 0.96 mg/dl (0.60-1.40); POTASSIUM 3.6 mmol/L (3.5-5.1)
[2016-10-11] MEDS: LISINOPRIL 10 MG TAB PO SCH (07:54)
[2016-10-11] MEDS: PANTOprazole SOD 40 MG TAB PO SCH ×2 (07:54→21:14)
[2016-10-11] MEDS: ARMOUR THYROID 30 MG TAB PO SCH (07:55)
[2016-10-11] MEDS: CLOPIDOGREL BISULFATE 75 MG TAB PO SCH (07:56)
[2016-10-11] MEDS: AMLODIPINE BESYLATE 5 MG TAB PO SCH (07:56)
[2016-10-11] MEDS: VANCOMYCIN HCL 125 MG/2.5ML SOLN PO SCH ×4 (08:02→21:12)
[2016-10-11] MEDS: RASPBERRY SYRUP 5 ML UDP PO SCH ×4 (08:02→21:12)
[2016-10-11] MEDS ORDERED: NURSING VERBAL MED ORDER ONE (08:15)
--- NOTE | 2016-10-11 08:59 | SURGERY PROGRESS NOTE ---
DATE: 10/11/2016 Cheryle was not feeling as good as he felt yesterday. His last vitals showed a temperature of 36.6, pulse 110, respirations 18, blood pressure 114/81, O2 sats 93 on 2 liters. The abdomen is minimally more distended. He continues to move his bowels. He had 3 overnight. The incision is intact. Laboratory goldstein, his white count is up to 21,000 this morning with a significant left shift. The BUN is 19, creatinine is 0.96. He was started on vancomycin yesterday and Flagyl was discontinued. I will leave the antibiotic management to the GI service and medical service regarding his C. diff. There is no acute abdominal problem at this time. We will just get plain x-rays to visualize the size of colonic distention. DARLINE
[2016-10-11] MEDS ORDERED: PANTOprazole SOD 40 MG TAB PO SCH (09:00)
--- NOTE | 2016-10-11 09:01 | SURGERY PROGRESS NOTE ---
DATE: 10/11/2016 DATE: 10/11/2016 Mr. Lobato looks good today. His NG tube is out. He has no further problems. His diarrhea has decreased to 5 or 6 times a day. I thought his x-ray looked good yesterday. His white count is up to 21,000 but overall he looks much improved to me. His creatinine is normal. At this point I would continue him on oxygen for the time being and check a chest x-ray tomorrow.
--- NOTE | 2016-10-11 09:07 | DIAGNOSTIC IMAGING REPORT ---
ABDOMEN 2VIEW W/PA CHEST RTN HISTORY: 56 years-old Male c diff colitis abdominal distention acute abdominal distention with colitis. COMPARISON: KUB 10/10/2016 TECHNIQUE: Frontal view of the chest with upright and supine views of the abdomen. FINDINGS: Cardiomediastinal and hilar silhouettes are within normal limits. There is atherosclerosis of the aorta. Small left hydropneumothorax is again seen, apical pleural separation of approximately 11 mm. Multiple dilated loops of small bowel are again seen within the mid and upper abdomen with associated air-fluid levels. These findings appear unchanged from comparison. Surgical clips of the upper abdomen are also again seen. No pneumoperitoneum on the upright projection. No urolithiasis. Degenerative changes are noted about the spine and hips. IMPRESSION: 1. Persistent dilated small bowel throughout the abdomen without change from prior study suggesting partial small bowel obstruction or ileus. 2. No pneumoperitoneum. 3. Small left hydropneumothorax redemonstrated. The above report was generated using voice recognition software. It may contain grammatical, syntax or spelling errors. Electronically signed by: Travis Pina M.D. 10/11/2016 9:06 AM Dictated Date/Time: 10/11/2016 8:54 AM
--- NOTE | 2016-10-11 09:25 | Gastroenterology Progress Note ---
Progress Note Date of Service: Oct 11, 2016 Subjective Pt evaluation today including: conversation w/ patient, physical exam, chart review, lab review, review of inpatient medication list Pt just returned from chest/abd xray exam, results pending. He feels discouraged due to increased diarrhea. Denies any abd pain, n/v, is passing flatus, no blood in stools noted. Review of Systems Constitutional: No fever, No chills Respiratory: + cough Cardiac: No chest pain Abdomen: + diarrhea, No pain, No nausea, No vomiting Medications Current Inpatient Medications Medications (Trade) Dose Ordered Sig/Francisco Javier Route Start Time Stop Time Status Last Admin Dose Admin Acetaminophen (Tylenol Tab) 650 mg Q4H PRN PO 10/09/16 07:00 11/08/16 06:59 10/11/16 00:01 650 MG Hydromorphone HCl (Dilaudid Inj) 0.5 mg Q4H PRN IV 10/09/16 07:00 10/23/16 06:59 10/10/16 03:04 0.5 MG Tramadol HCl (Ultram Tab) not relieved by tylenol @ Q6H PRN PO 10/09/16 07:00 11/08/16 06:59 Ondansetron HCl (Zofran Inj) 4 mg Q6H PRN IV 10/09/16 07:00 11/08/16 06:59 10/09/16 21:26 4 MG Promethazine HCl 12.5 mg/Sodium Chloride 50.5 ml @ 204 mls/hr Q6H PRN IV 10/09/16 07:00 11/08/16 06:59 10/09/16 10:57 204 MLS/HR Lorazepam (Ativan Inj) 0.5 mg Q4H PRN IV 10/09/16 07:00 11/08/16 06:59 Ipratropium [place] (Atrovent 0.02% 0.5MG/2.5ML Neb) 0.5 mg Q4H PRN INH 10/09/16 07:45 11/08/16 07:44 Levalbuterol (Xopenex 1.25MG/ 0.5ML Neb) 1.25 mg Q4H PRN INH 10/09/16 07:45 11/08/16 07:44 Vancomycin HCl (Vancomycin Oral Soln) 125 mg QID PO 10/10/16 13:00 10/24/16 12:59 10/11/16 08:02 125 MG Amlodipine Besylate (Norvasc Tab) 10 mg QAM PO 10/11/16 09:00 11/10/16 08:59 10/11/16 07:56 10 MG Atorvastatin Calcium (Lipitor Tab) 40 mg QPM PO 10/10/16 21:00 11/09/16 20:59 10/10/16 20:06 40 MG Clopidogrel Bisulfate (plAVix TAB) 75 mg QAM PO 10/11/16 09:00 11/10/16 08:59 10/11/16 07:56 75 MG Lisinopril (Zestril Tab) 10 mg QAM PO 10/11/16 09:00 11/10/16 08:59 Thyroid ([place] Thyroid Tab) 60 mg Q7D@0900 PO 10/15/16 09:00 11/14/16 08:59 Thyroid ([place] Thyroid Tab) 120 mg MoTuWeThFrSa@0900 PO 10/11/16 09:00 11/10/16 08:59 10/11/16 07:55 120 MG Pantoprazole Sodium (Protonix Tab) 40 mg BID PO 10/10/16 21:00 11/09/16 20:59 10/11/16 07:54 40 MG Raspberry (Raspberry Syrup 5ml Cup) 5 ml QID PO 10/10/16 13:00 10/24/16 12:59 10/11/16 08:02 5 ML Objective Vital Signs Date Time Temp Pulse Resp B/P (MAP) Pulse Ox O2 Delivery O2 Flow Rate FiO2 10/11/16 08:11 36.9 109 20 112/81 (91) 93 Room Air 10/11/16 08:00 Room Air Nasal Cannula Ambu-Bag 10/11/16 04:00 Nasal Cannula 2.0 10/11/16 03:30 36.6 110 18 114/81 (92) 93 Nasal Cannula 0.5 10/11/16 00:04 36.6 118 18 121/79 (93) 93 Nasal Cannula 2.0 10/10/16 23:59 Nasal Cannula 2.0 10/10/16 20:22 92 Nasal Cannula 2.0 10/10/16 19:45 37.0 107 22 115/78 (90) 96 Nasal Cannula 2.0 10/10/16 16:47 92 Nasal Cannula 2.0 10/10/16 15:50 36.6 109 22 116/76 (89) 92 Room Air 10/10/16 13:19 Room Air 10/10/16 12:00 Room Air 10/10/16 11:53 37.0 119 18 128/63 (84) 96 Physical Exam General Appearance: WD/WN, no apparent distress Eyes: normal inspection, PERRL, EOMI Neck: supple, no JVD, trachea midline Respiratory/Chest: normal breath sounds, no respiratory distress, no accessory muscle use Cardiovascular: regular rate, rhythm, no gallop, no murmur Abdomen: normal bowel sounds, non tender, soft Extremities: normal inspection, no pedal edema, no calf tenderness Neurologic/Psych: alert, normal mood/affect, oriented x 3 Skin: normal color, no jaundice, no rash Laboratory Results Last 24 Hours Test 10/10/16 22:42 10/11/16 05:20 Sodium Level 138 mmol/L 138 mmol/L Potassium Level 3.4 mmol/L 3.6 mmol/L Chloride Level 106 mmol/L 108 mmol/L Carbon Dioxide Level 26 mmol/L 27 mmol/L Anion Gap 6.0 mmol/L 3.0 mmol/L Blood Urea Nitrogen 21 mg/dl 19 mg/dl Creatinine 1.00 mg/dl 0.96 mg/dl Est Creatinine Clear Calc Drug Dose 75.3 ml/min 78.4 ml/min Estimated GFR () 95.7 100.6 Estimated GFR (Non- 82.6 86.8 BUN/Creatinine Ratio 21.4 19.4 Random Glucose 98 mg/dl 95 mg/dl Calcium Level 8.0 mg/dl 7.9 mg/dl Magnesium Level 1.9 mg/dl White Blood Count 21.31 K/uL Red Blood Count 3.57 M/uL Hemoglobin 9.7 g/dL Hematocrit 31.0 % Mean Corpuscular Volume 86.8 fL Mean Corpuscular Hemoglobin 27.2 pg Mean Corpuscular Hemoglobin Concent 31.3 g/dl Platelet Count 411 K/uL Mean Platelet Volume 10.1 fL Neutrophils (%) (Auto) 76.5 % Lymphocytes (%) (Auto) 8.6 % Monocytes (%) (Auto) 11.1 % Eosinophils (%) (Auto) 2.9 % Basophils (%) (Auto) 0.1 % Neutrophils # (Auto) 16.31 K/uL Lymphocytes # (Auto) 1.83 K/uL Monocytes # (Auto) 2.37 K/uL Eosinophils # (Auto) 0.61 K/uL Basophils # (Auto) 0.02 K/uL RDW Standard Deviation 43.1 fL RDW Coefficient of Variation 13.5 % Immature Granulocyte % (Auto) 0.8 % Immature Granulocyte # (Auto) 0.17 K/uL Assessment and Plan Pt is a 56 y/o male w recent L nephrectomy for renal cell carcinoma, possible metastatic disease, L pneumothorax, currently followed for ileus and Cdiff. Diarrhea persist, WBC increased from 13K to 21K. He remains afebrile, no abd pain, n/v, tolerating CL diet, passing flatus. - CL diet - Repeat chest/abd xray pending. - Continue Protonix 40mg BID - Vancomycin 125mg QID, add Flagyl 500mg TID. Given one dose of Questran 4g, had a more solid BM thus will DC further dose. - Avoid narcotics I have seen, examined and agree with the plan as outlined by ASHISH Bishop as above. -exam reveals soft abd
[2016-10-11] MEDS ORDERED: CHOLESTYRAMINE LIGHT 4 GM PKT PO SCH (10:00)
[2016-10-11] MEDS: METRONIDAZOLE 500 MG TAB PO SCH ×2 (13:14→21:13)
--- NOTE | 2016-10-11 13:31 | Progress Note ---
Internal Med Progress Note Date of Service: Oct 11, 2016. Provider Documentation: SUBJECTIVE: The patient was seen and examined Abdominal pain is little worse today Denies any nausea and or vomiting Denies any fever,chills OBJECTIVE: Vital Signs-as noted below Exam: General-Minimal distress at rest OOB on a chair Eyes-normal ENT-normal Neck-Supple Lungs-Clear to ausucltate bilaterally Heart-Regular,no murmur appreciated Abdomen-Soft ,tender,S/O Extensive Surgery ,bowel sound present but sluggish Extremities-Trace edema bilaterally Neuro-AAOx3 Lab data as noted below. ASSESSMENT & PLAN: SBO Presented with abdominal pain with distention complicated by C. diff. Colitis S/P recent Extensive abdominal surgery as below NPO,NGT,Symptomatic medications and Iv Flagyl Surgery input appreciated Clinically improving NGT is discontinued,clears started and tolerating C Diff Colitis Was on IV Flagyl Changed to oral Vanco WCC is increased today Will add IV Flagyl and received one dose of oral Questran Hypotension Likely secondary to hypovolemia secondary to SBO (recent L nephrectomy at [facility] [place]), Sepsis due to C diff diarrhea UGIB 2 to emesis 2 to SBO Blood pressure is maintained Acute renal failure secondary to above. IVF and Monitor Renal function is normalized Left Renal mass (prob malignancy), L renal vein/IVC thrombi possible lung metastases S/P open Left radical nephrectomy (adrenal sparing), L renal vein/IVC thrombectomy ([facility] [place], 10/03/16) Further management will depend on Oncology Pneumothorax left, probable secondary spontaneous pneumothorax, emphysematous lungs on imaging Secondary to recent Surgery Appreciate Thoracic surgery input Check with CXR in AM-remains stable Minimal Pneumothorax remains Chronic anemia secondary to renal tumor, hemoglobin at baseline. Serial H&H, transfuse pRBCs if hemoglobin less than 8. (hx CAD) IV PPI Anemia workup Plavix is on hold for now GI consult RE UGIB-appreciate input Restart Plavix ,Hb remains stable Coronary artery disease status post stenting. No acute symptoms now Has been on Home medications Hypothyroidism on meds, TSH noted to be elevated Continue current dose of Synthroid Past tobacco abuse. Deep venous thrombosis prophylaxis, SCDs. RE UGIB Full code. Vital Signs: Date Time Temp Pulse Resp B/P (MAP) Pulse Ox O2 Delivery O2 Flow Rate FiO2 10/11/16 12:01 36.8 122 18 139/66 (90) 95 10/11/16 12:00 Room Air Nasal Cannula Ambu-Bag 10/11/16 08:11 36.9 109 20 112/81 (91) 93 Room Air 10/11/16 08:00 Room Air Nasal Cannula Ambu-Bag 10/11/16 04:00 Nasal Cannula 2.0 10/11/16 03:30 36.6 110 18 114/81 (92) 93 Nasal Cannula 0.5 10/11/16 00:04 36.6 118 18 121/79 (93) 93 Nasal Cannula 2.0 10/10/16 23:59 Nasal Cannula 2.0 10/10/16 20:22 92 Nasal Cannula 2.0 10/10/16 19:45 37.0 107 22 115/78 (90) 96 Nasal Cannula 2.0 10/10/16 16:47 92 Nasal Cannula 2.0 10/10/16 15:50 36.6 109 22 116/76 (89) 92 Room Air Lab Results: Results Past 24 Hours Test 10/10/16 22:42 10/11/16 05:20 Range/Units Sodium Level 138 138 136-145 mmol/L Potassium Level 3.4 3.6 3.5-5.1 mmol/L Chloride Level 106 108 98-107 mmol/L Carbon Dioxide Level 26 27 21-32 mmol/L Anion Gap 6.0 3.0 3-11 mmol/L Blood Urea Nitrogen 21 19 7-18 mg/dl Creatinine 1.00 0.96 0.60-1.40 mg/dl Est Creatinine Clear Calc Drug Dose 75.3 78.4 ml/min Estimated GFR () 95.7 100.6 Estimated GFR (Non- 82.6 86.8 BUN/Creatinine Ratio 21.4 19.4 10-20 Random Glucose 98 95 70-99 mg/dl Calcium Level 8.0 7.9 8.5-10.1 mg/dl Magnesium Level 1.9 1.8-2.4 mg/dl White Blood Count 21.31 4.8-10.8 K/uL Red Blood Count 3.57 4.7-6.1 M/uL Hemoglobin 9.7 14.0-18.0 g/dL Hematocrit 31.0 42-52 % Mean Corpuscular Volume 86.8 80-100 fL Mean Corpuscular Hemoglobin 27.2 25-34 pg Mean Corpuscular Hemoglobin Concent 31.3 32-36 g/dl Platelet Count 411 130-400 K/uL Mean Platelet Volume 10.1 7.4-10.4 fL Neutrophils (%) (Auto) 76.5 % Lymphocytes (%) (Auto) 8.6 % Monocytes (%) (Auto) 11.1 % Eosinophils (%) (Auto) 2.9 % Basophils (%) (Auto) 0.1 % Neutrophils # (Auto) 16.31 1.4-6.5 K/uL Lymphocytes # (Auto) 1.83 1.2-3.4 K/uL Monocytes # (Auto) 2.37 0.11-0.59 K/uL Eosinophils # (Auto) 0.61 0-0.5 K/uL Basophils # (Auto) 0.02 0-0.2 K/uL RDW Standard Deviation 43.1 36.4-46.3 fL RDW Coefficient of Variation 13.5 11.5-14.5 % Immature Granulocyte % (Auto) 0.8 % Immature Granulocyte # (Auto) 0.17 0.00-0.02 K/uL
[2016-10-11] MEDS: ATORVASTATIN 20 MG TAB PO SCH (21:14)
[2016-10-12 03:01] VITALS: BP 108/54; PULSE 106; TEMP 36.6; O2SAT 94
[2016-10-12 05:36] LABS: HEMATOCRIT 31.8 % (42-52); MEAN CELL VOLUME 85.7 fL (80-100); MEAN CORPUSCULAR HEMOGLOBIN 28.3 pg (25-34); MEAN PLATELET VOLUME 9.7 fL (7.4-10.4); PLATELET COUNT 476 K/uL (130-400); RED BLOOD COUNT 3.71 M/uL (4.7-6.1); WHITE BLOOD COUNT 16.24 K/uL (4.8-10.8)
[2016-10-12] MEDS: ACETAMINOPHEN 325 MG TAB PO PRN ×2 (05:53→17:56)
[2016-10-12 06:03] LABS: BUN/CREATININE RATIO 14.3 (10-20); CALCIUM 7.6 mg/dl (8.5-10.1); POTASSIUM 3.2 mmol/L (3.5-5.1)
[2016-10-12 06:33] LABS: BASO % 0.1 %; BASO ABS # 0.01 K/uL (0-0.2); COMPLETE YES; EOS % 2.2 %; LYMPH % 20.3 %; LYMPH ABS # 3.29 K/uL (1.2-3.4); NEUT % 73.4 %; TOXIC GRANULATION 1+
[2016-10-12] MEDS: AMLODIPINE BESYLATE 5 MG TAB PO SCH (07:30)
[2016-10-12] MEDS: LISINOPRIL 10 MG TAB PO SCH (07:30)
[2016-10-12] MEDS: METRONIDAZOLE 500 MG TAB PO SCH ×3 (07:30→21:13)
[2016-10-12] MEDS: RASPBERRY SYRUP 5 ML UDP PO SCH ×4 (07:31→21:13)
[2016-10-12] MEDS: CLOPIDOGREL BISULFATE 75 MG TAB PO SCH (07:31)
[2016-10-12] MEDS: ARMOUR THYROID 30 MG TAB PO SCH (07:31)
[2016-10-12] MEDS: VANCOMYCIN HCL 125 MG/2.5ML SOLN PO SCH ×4 (07:31→21:13)
[2016-10-12] MEDS: PANTOprazole SOD 40 MG TAB PO SCH ×2 (07:31→21:13)
--- NOTE | 2016-10-12 07:40 | DIAGNOSTIC IMAGING REPORT ---
CHEST ONE VIEW PORTABLE CLINICAL HISTORY: pneumothorax dyspnea COMPARISON STUDY: 10/11/2016 FINDINGS: Prior median sternotomy. Emphysematous change. No pneumothorax at the current time. Diaphragms are smooth. IMPRESSION: Lungs are clear. Mild emphysematous change. No evidence for pneumothorax at the current time. The above report was generated using voice recognition software. It may contain grammatical, syntax or spelling errors. Electronically signed by: Suman Goncalves M.D. 10/12/2016 7:39 AM Dictated Date/Time: 10/12/2016 7:34 AM
[2016-10-12 07:43] VITALS: BP 127/90; PULSE 107; TEMP 36.3; O2SAT 97
[2016-10-12] MEDS ORDERED: POTASSIUM CHLORIDE 20 MEQ TABCR PO STA (08:40)
--- NOTE | 2016-10-12 09:53 | SURGERY PROGRESS NOTE ---
DATE: 10/12/2016 DATE: 10/12/2016 Mr. Lobato was seen today on 10/12/2016. His x-ray shows no evidence of pneumothorax. He also looks much better and was asking about being discharged. He is on room air and has done quite well. His white count today is 16,240. In addition, does not appear he is dehydrated as his BUN and creatinine are 14 and 1.0 respectively. From my standpoint, I am going to sign off this case. He looks quite good and his lungs sound good. From a pneumothorax standpoint, I feel like this was probably just post-procedural. I would not do anything different.
[2016-10-12 11:16] VITALS: BP 105/73; PULSE 109; PULSE 18; TEMP 36.8; O2SAT 95
--- NOTE | 2016-10-12 12:38 | Gastroenterology Progress Note ---
Progress Note Date of Service: Oct 12, 2016 Subjective Pt evaluation today including: conversation w/ patient, physical exam, chart review, lab review, review of inpatient medication list Pt still having loose stools w slightly formed ones as well, denies any abd pain , n/v, tolerate clears, passing flatus. WBC decreased to 16K today Review of Systems Constitutional: No fever, No chills Respiratory: No cough, No shortness of breath Cardiac: No chest pain Abdomen: + diarrhea, No pain, No nausea, No vomiting, No GI bleeding Medications Current Inpatient Medications Medications (Trade) Dose Ordered Sig/Francisco Javier Route Start Time Stop Time Status Last Admin Dose Admin Acetaminophen (Tylenol Tab) 650 mg Q4H PRN PO 10/09/16 07:00 11/08/16 06:59 10/12/16 05:53 650 MG Hydromorphone HCl (Dilaudid Inj) 0.5 mg Q4H PRN IV 10/09/16 07:00 10/23/16 06:59 10/10/16 03:04 0.5 MG Tramadol HCl (Ultram Tab) not relieved by tylenol @ Q6H PRN PO 10/09/16 07:00 11/08/16 06:59 Ondansetron HCl (Zofran Inj) 4 mg Q6H PRN IV 10/09/16 07:00 11/08/16 06:59 10/09/16 21:26 4 MG Promethazine HCl 12.5 mg/Sodium Chloride 50.5 ml @ 204 mls/hr Q6H PRN IV 10/09/16 07:00 11/08/16 06:59 10/09/16 10:57 204 MLS/HR Lorazepam (Ativan Inj) 0.5 mg Q4H PRN IV 10/09/16 07:00 11/08/16 06:59 Ipratropium [place] (Atrovent 0.02% 0.5MG/2.5ML Neb) 0.5 mg Q4H PRN INH 10/09/16 07:45 11/08/16 07:44 Levalbuterol (Xopenex 1.25MG/ 0.5ML Neb) 1.25 mg Q4H PRN INH 10/09/16 07:45 11/08/16 07:44 Vancomycin HCl (Vancomycin Oral Soln) 125 mg QID PO 10/10/16 13:00 10/24/16 12:59 10/12/16 07:31 125 MG Amlodipine Besylate (Norvasc Tab) 10 mg QAM PO 10/11/16 09:00 11/10/16 08:59 10/12/16 07:30 10 MG Atorvastatin Calcium (Lipitor Tab) 40 mg QPM PO 10/10/16 21:00 11/09/16 20:59 10/11/16 21:14 40 MG Clopidogrel Bisulfate (plAVix TAB) 75 mg QAM PO 10/11/16 09:00 11/10/16 08:59 10/12/16 07:31 75 MG Lisinopril (Zestril Tab) 10 mg QAM PO 10/11/16 09:00 11/10/16 08:59 10/12/16 07:30 10 MG Thyroid ([place] Thyroid Tab) 60 mg Q7D@0900 PO 10/15/16 09:00 11/14/16 08:59 Thyroid ([place] Thyroid Tab) 120 mg MoTuWeThFrSa@0900 PO 10/11/16 09:00 11/10/16 08:59 10/12/16 07:31 120 MG Pantoprazole Sodium (Protonix Tab) 40 mg BID PO 10/10/16 21:00 11/09/16 20:59 10/12/16 07:31 40 MG Raspberry (Raspberry Syrup 5ml Cup) 5 ml QID PO 10/10/16 13:00 10/24/16 12:59 10/12/16 07:31 5 ML Metronidazole (Flagyl Tab) 500 mg TID PO 10/11/16 14:00 10/21/16 13:59 10/12/16 07:30 500 MG Objective Vital Signs Date Time Temp Pulse Resp B/P (MAP) Pulse Ox O2 Delivery O2 Flow Rate FiO2 10/12/16 12:00 Room Air Nasal Cannula Ambu-Bag 10/12/16 11:16 36.8 109 20 105/73 (84) 95 Room Air 10/12/16 08:00 Room Air Nasal Cannula Ambu-Bag 10/12/16 07:43 36.3 107 18 127/90 (102) 97 Room Air 10/12/16 04:00 Room Air 10/12/16 03:01 36.6 106 22 108/54 (72) 94 Room Air 10/12/16 00:00 Room Air 10/11/16 23:48 36.6 107 24 121/83 (96) 94 Room Air 10/11/16 20:10 37.1 120 20 115/83 (94) 93 Room Air 10/11/16 20:00 Room Air Nasal Cannula Ambu-Bag 10/11/16 16:00 Room Air Nasal Cannula Ambu-Bag 10/11/16 15:38 36.3 114 20 119/82 (94) 94 Room Air Physical Exam General Appearance: WD/WN, no apparent distress Eyes: normal inspection, PERRL, EOMI Neck: supple, no JVD, trachea midline Respiratory/Chest: normal breath sounds, no respiratory distress, no accessory muscle use Cardiovascular: regular rate, rhythm, no gallop, no murmur Abdomen: normal bowel sounds, non tender, + distended (mild) Extremities: normal inspection, no pedal edema, no calf tenderness Neurologic/Psych: alert, normal mood/affect, oriented x 3 Skin: normal color, no jaundice, no rash Laboratory Results Last 24 Hours Test 10/12/16 05:21 White Blood Count 16.24 K/uL Red Blood Count 3.71 M/uL Hemoglobin 10.5 g/dL Hematocrit 31.8 % Mean Corpuscular Volume 85.7 fL Mean Corpuscular Hemoglobin 28.3 pg Mean Corpuscular Hemoglobin Concent 33.0 g/dl Platelet Count 476 K/uL Mean Platelet Volume 9.7 fL Neutrophils (%) (Auto) 73.4 % Lymphocytes (%) (Auto) 20.3 % Monocytes (%) (Auto) 3.0 % Eosinophils (%) (Auto) 2.2 % Basophils (%) (Auto) 0.1 % Neutrophils # (Auto) 11.94 K/uL Lymphocytes # (Auto) 3.29 K/uL Monocytes # (Auto) 0.48 K/uL Eosinophils # (Auto) 0.36 K/uL Basophils # (Auto) 0.01 K/uL RDW Standard Deviation 42.1 fL RDW Coefficient of Variation 13.4 % Immature Granulocyte % (Auto) 1.0 % Immature Granulocyte # (Auto) 0.16 K/uL Toxic Granulation 1+ Sodium Level 138 mmol/L Potassium Level 3.2 mmol/L Chloride Level 107 mmol/L Carbon Dioxide Level 27 mmol/L Anion Gap 4.0 mmol/L Blood Urea Nitrogen 14 mg/dl Creatinine 1.00 mg/dl Est Creatinine Clear Calc Drug Dose 75.3 ml/min Estimated GFR () 95.7 Estimated GFR (Non- 82.6 BUN/Creatinine Ratio 14.3 Random Glucose 104 mg/dl Calcium Level 7.6 mg/dl Assessment and Plan Pt is a 56 y/o male w recent L nephrectomy for renal cell carcinoma, possible metastatic disease, L pneumothorax, currently followed for ileus and Cdiff. WBC decreased from 21K yesterday to 16K. He remains afebrile, no abd pain, n/v, tolerating CL diet, passing flatus. - CL diet, may advance slowly as tolerated. - Repeat KUB today - Continue Protonix 40mg BID - Vancomycin 125mg QID, Flagyl 500mg TID x 1 more day. If DC'd home today, please only discharge him on Vancomycin 125mg QID to complete 14 day course, don 't add the Flagyl. - Avoid narcotics - Will sign off, call if new questions/concerns arise. I have seen, examined and agree with the plan as outlined by ASHISH Bishop as above. -exam reveals soft abd -
--- NOTE | 2016-10-12 13:50 | DIAGNOSTIC IMAGING REPORT ---
KUB CLINICAL HISTORY: re-eval ileus pain. Ileus. COMPARISON STUDY: 10/11/2016 FINDINGS: persistent mild distention of multiple loops of small bowel. The distention is perhaps slightly increased. Unremarkable fecal material and gas within the colon. IMPRESSION: Slight increase in small bowel distention compared to the prior study. The above report was generated using voice recognition software. It may contain grammatical, syntax or spelling errors. Electronically signed by: Suman Goncalves M.D. 10/12/2016 1:49 PM Dictated Date/Time: 10/12/2016 1:48 PM
--- NOTE | 2016-10-12 14:41 | Progress Note ---
Internal Med Progress Note Date of Service: Oct 12, 2016. Provider Documentation: SUBJECTIVE: The patient was seen and examined Abdominal pain is little worse today but distension is better Denies any nausea and or vomiting Denies any fever,chills Bowel moved OBJECTIVE: Vital Signs-as noted below Exam: General-Minimal distress at rest OOB on a chair Eyes-normal ENT-normal Neck-Supple Lungs-Clear to ausucltate bilaterally Heart-Regular,no murmur appreciated Abdomen-Soft ,tender,S/O Extensive Surgery ,bowel sound present but sluggish Extremities-Trace edema bilaterally Neuro-AAOx3 Lab data as noted below. ASSESSMENT & PLAN: SBO Presented with abdominal pain with distention complicated by C. diff. Colitis S/P recent Extensive abdominal surgery as below NPO,NGT,Symptomatic medications and Iv Flagyl Surgery input appreciated Clinically improving NGT is discontinued,clears started and tolerating KUB a little worse today but symptomatically better Advance diet gradually C Diff Colitis Was on IV Flagyl Changed to oral Vanco WCC is increased today Will add IV Flagyl and received one dose of oral Questran D/C on Oral Vaco to finish a course of 14 days Hypotension Likely secondary to hypovolemia secondary to SBO (recent L nephrectomy at [facility] [place]), Sepsis due to C diff diarrhea UGIB 2 to emesis 2 to SBO Blood pressure is maintained Acute renal failure secondary to above. IVF and Monitor Renal function is normalized Left Renal mass (prob malignancy), L renal vein/IVC thrombi possible lung metastases S/P open Left radical nephrectomy (adrenal sparing), L renal vein/IVC thrombectomy ([facility] [place], 10/03/16) Further management will depend on Oncology Appointment with Dr Mills Pneumothorax left, probable secondary spontaneous pneumothorax, emphysematous lungs on imaging Secondary to recent Surgery Appreciate Thoracic surgery input Check with CXR in AM-remains stable Minimal Pneumothorax remains Chronic anemia secondary to renal tumor, hemoglobin at baseline. Serial H&H, transfuse pRBCs if hemoglobin less than 8. (hx CAD) IV PPI Anemia workup Plavix is on hold for now GI consult RE UGIB-appreciate input Restart Plavix ,Hb remains stable Coronary artery disease status post stenting. No acute symptoms now Has been on Home medications Hypothyroidism on meds, TSH noted to be elevated Continue current dose of Synthroid Past tobacco abuse. Deep venous thrombosis prophylaxis, SCDs. RE UGIB Full code. Likely home tomorrow Vital Signs: Date Time Temp Pulse Resp B/P (MAP) Pulse Ox O2 Delivery O2 Flow Rate FiO2 10/12/16 12:00 Room Air Nasal Cannula Ambu-Bag 10/12/16 11:16 36.8 109 20 105/73 (84) 95 Room Air 10/12/16 08:00 Room Air Nasal Cannula Ambu-Bag 10/12/16 07:43 36.3 107 18 127/90 (102) 97 Room Air 10/12/16 04:00 Room Air 10/12/16 03:01 36.6 106 22 108/54 (72) 94 Room Air 10/12/16 00:00 Room Air 10/11/16 23:48 36.6 107 24 121/83 (96) 94 Room Air 10/11/16 20:10 37.1 120 20 115/83 (94) 93 Room Air 10/11/16 20:00 Room Air Nasal Cannula Ambu-Bag 10/11/16 16:00 Room Air Nasal Cannula Ambu-Bag 10/11/16 15:38 36.3 114 20 119/82 (94) 94 Room Air Lab Results: Results Past 24 Hours Test 10/12/16 05:21 Range/Units White Blood Count 16.24 4.8-10.8 K/uL Red Blood Count 3.71 4.7-6.1 M/uL Hemoglobin 10.5 14.0-18.0 g/dL Hematocrit 31.8 42-52 % Mean Corpuscular Volume 85.7 80-100 fL Mean Corpuscular Hemoglobin 28.3 25-34 pg Mean Corpuscular Hemoglobin Concent 33.0 32-36 g/dl Platelet Count 476 130-400 K/uL Mean Platelet Volume 9.7 7.4-10.4 fL Neutrophils (%) (Auto) 73.4 % Lymphocytes (%) (Auto) 20.3 % Monocytes (%) (Auto) 3.0 % Eosinophils (%) (Auto) 2.2 % Basophils (%) (Auto) 0.1 % Neutrophils # (Auto) 11.94 1.4-6.5 K/uL Lymphocytes # (Auto) 3.29 1.2-3.4 K/uL Monocytes # (Auto) 0.48 0.11-0.59 K/uL Eosinophils # (Auto) 0.36 0-0.5 K/uL Basophils # (Auto) 0.01 0-0.2 K/uL RDW Standard Deviation 42.1 36.4-46.3 fL RDW Coefficient of Variation 13.4 11.5-14.5 % Immature Granulocyte % (Auto) 1.0 % Immature Granulocyte # (Auto) 0.16 0.00-0.02 K/uL Toxic Granulation 1+ Sodium Level 138 136-145 mmol/L Potassium Level 3.2 3.5-5.1 mmol/L Chloride Level 107 98-107 mmol/L Carbon Dioxide Level 27 21-32 mmol/L Anion Gap 4.0 3-11 mmol/L Blood Urea Nitrogen 14 7-18 mg/dl Creatinine 1.00 0.60-1.40 mg/dl Est Creatinine Clear Calc Drug Dose 75.3 ml/min Estimated GFR () 95.7 Estimated GFR (Non- 82.6 BUN/Creatinine Ratio 14.3 10-20 Random Glucose 104 70-99 mg/dl Calcium Level 7.6 8.5-10.1 mg/dl
[2016-10-12 15:47] VITALS: BP 112/79; PULSE 110; TEMP 36.6; O2SAT 95
[2016-10-12 16:42] LABS: HEMATOCRIT 30.7 % (42-52); MEAN CELL VOLUME 84.8 fL (80-100); MEAN CORPUSCULAR HEMOGLOBIN 28.5 pg (25-34); MEAN CORPUSCULAR HGB CONC 33.6 g/dl (32-36); MEAN PLATELET VOLUME 9.6 fL (7.4-10.4); PLATELET COUNT 493 K/uL (130-400); RED BLOOD COUNT 3.62 M/uL (4.7-6.1); WHITE BLOOD COUNT 16.48 K/uL (4.8-10.8)
[2016-10-12 17:00] LABS: BUN/CREATININE RATIO 14.8 (10-20); CALCIUM 7.9 mg/dl (8.5-10.1); POTASSIUM 3.5 mmol/L (3.5-5.1)
[2016-10-12 19:59] VITALS: BP 105/72; PULSE 100; TEMP 37.3; O2SAT 95
[2016-10-12] MEDS: ATORVASTATIN 20 MG TAB PO SCH (21:13)
[2016-10-13] VITALS: BP 119/78; PULSE 100; TEMP 37; O2SAT 96
[2016-10-13 04:00] VITALS: BP 117/81; PULSE 100; TEMP 37.1; O2SAT 95
[2016-10-13] MEDS: ACETAMINOPHEN 325 MG TAB PO PRN ×2 (04:24→14:07)
[2016-10-13 06:54] LABS: BASO % 0.2 %; BASO ABS # 0.03 K/uL (0-0.2); COMPLETE YES; EOS % 1.7 %; HEMATOCRIT 30.7 % (42-52); IG% 1.7 %; LYMPH % 11.6 %; LYMPH ABS # 1.74 K/uL (1.2-3.4); MEAN CELL VOLUME 84.1 fL (80-100); MEAN CORPUSCULAR HEMOGLOBIN 28.5 pg (25-34); MEAN CORPUSCULAR HGB CONC 33.9 g/dl (32-36); MEAN PLATELET VOLUME 9.5 fL (7.4-10.4); NEUT % 73.8 %; PLATELET COUNT 495 K/uL (130-400); RED BLOOD COUNT 3.65 M/uL (4.7-6.1)
[2016-10-13 07:20] LABS: BUN/CREATININE RATIO 13.4 (10-20); CREATININE 0.98 mg/dl (0.60-1.40); POTASSIUM 3.2 mmol/L (3.5-5.1)
[2016-10-13] MEDS ORDERED: POTASSIUM CHLORIDE 10 MEQ TABCR PO ONE (07:45)
[2016-10-13 08:00] VITALS: BP 106/73; PULSE 102; TEMP 36.8; O2SAT 95
[2016-10-13] MEDS: RASPBERRY SYRUP 5 ML UDP PO SCH ×2 (09:12→12:36)
[2016-10-13] MEDS: VANCOMYCIN HCL 125 MG/2.5ML SOLN PO SCH ×2 (09:12→12:36)
[2016-10-13] MEDS: CLOPIDOGREL BISULFATE 75 MG TAB PO SCH (09:13)
[2016-10-13] MEDS: AMLODIPINE BESYLATE 5 MG TAB PO SCH (09:13)
[2016-10-13] MEDS: METRONIDAZOLE 500 MG TAB PO SCH ×2 (09:13→12:37)
[2016-10-13] MEDS: LISINOPRIL 10 MG TAB PO SCH (09:13)
[2016-10-13] MEDS: PANTOprazole SOD 40 MG TAB PO SCH (09:13)
[2016-10-13] MEDS: ARMOUR THYROID 30 MG TAB PO SCH (09:14)
[2016-10-13] MEDS: LACTOBACILLUS ACIDOPHILUS (FLORANEX) TAB PO SCH ×2 (09:14→12:36)
[2016-10-13 11:23] VITALS: BP 104/73; PULSE 103; TEMP 36.7; O2SAT 97
--- NOTE | 2016-10-13 12:29 | Progress Note ---
Internal Med Progress Note Date of Service: Oct 13, 2016. Provider Documentation: SUBJECTIVE: The patient was seen and examined Symptomatically much better No more abdominal distension No Nausea and or vomiting OBJECTIVE: Vital Signs-as noted below Exam: General-Minimal distress at rest OOB on a chair Very anxious Eyes-normal ENT-normal Neck-Supple Lungs-Clear to ausucltate bilaterally Heart-Regular,no murmur appreciated Abdomen-Soft ,tender,S/O Extensive Surgery ,bowel sound present but sluggish Extremities-Trace edema bilaterally Neuro-AAOx3 Lab data as noted below. ASSESSMENT & PLAN: SBO Presented with abdominal pain with distention complicated by C. diff. Colitis S/P recent Extensive abdominal surgery as below NPO,NGT,Symptomatic medications and Iv Flagyl Surgery input appreciated NGT is discontinued,clears started and tolerating KUB a little worse today 10/12/16 but symptomatically better Advance diet gradually and tolerating Tolerating the diet -soft as he has been on as an OP Likely to go home this afternoon C Diff Colitis Was on IV Flagyl Changed to oral Vanco WCC is increased today Will add IV Flagyl and received one dose of oral Questran D/C on Oral Vaco to finish a course of 14 days and discontinue Flagyl Hypokalemia Getting replacement Will give supplement Hypotension Likely secondary to hypovolemia secondary to SBO (recent L nephrectomy at [facility] [place] [place] Sepsis due to C diff diarrhea UGIB 2 to emesis 2 to SBO Blood pressure is maintained Acute renal failure secondary to above. IVF and Monitor Renal function is normalized Left Renal mass (prob malignancy), L renal vein/IVC thrombi possible lung metastases S/P open Left radical nephrectomy (adrenal sparing), L renal vein/IVC thrombectomy ([facility] [place] [place], 10/03/16) Further management will depend on Oncology Appointment with Dr Mills Pneumothorax left, probable secondary spontaneous pneumothorax, emphysematous lungs on imaging Secondary to recent Surgery Appreciate Thoracic surgery input Check with CXR in AM-remains stable Minimal Pneumothorax remains Chronic anemia secondary to renal tumor, hemoglobin at baseline. Serial H&H, transfuse pRBCs if hemoglobin less than 8. (hx CAD) IV PPI Anemia workup Plavix is on hold for now GI consult RE UGIB-appreciate input Restart Plavix ,Hb remains stable >10 Coronary artery disease status post stenting. No acute symptoms now Has been on Home medications No Chest pain Hypothyroidism on meds, TSH noted to be elevated Continue current dose of Synthroid Past tobacco abuse. Deep venous thrombosis prophylaxis, SCDs. RE UGIB Full code. Discharge home today Vital Signs: Date Time Temp Pulse Resp B/P (MAP) Pulse Ox O2 Delivery O2 Flow Rate FiO2 10/13/16 11:23 36.7 103 18 104/73 (83) 97 Room Air 10/13/16 08:00 Room Air 10/13/16 08:00 36.8 102 18 106/73 (84) 95 Room Air 10/13/16 04:00 37.1 100 20 117/81 (93) 95 Room Air 10/13/16 04:00 Room Air 10/13/16 00:00 37.0 100 20 119/78 (92) 96 Room Air 10/13/16 00:00 Room Air 10/12/16 20:00 Room Air 10/12/16 19:59 37.3 100 18 105/72 (83) 95 Room Air 10/12/16 16:00 Room Air Nasal Cannula Ambu-Bag 10/12/16 15:47 36.6 110 18 112/79 (90) 95 Room Air Lab Results: Results Past 24 Hours Test 10/12/16 16:33 10/13/16 06:43 Range/Units White Blood Count 16.48 15.00 4.8-10.8 K/uL Red Blood Count 3.62 3.65 4.7-6.1 M/uL Hemoglobin 10.3 10.4 14.0-18.0 g/dL Hematocrit 30.7 30.7 42-52 % Mean Corpuscular Volume 84.8 84.1 80-100 fL Mean Corpuscular Hemoglobin 28.5 28.5 25-34 pg Mean Corpuscular Hemoglobin Concent 33.6 33.9 32-36 g/dl RDW Standard Deviation 41.4 41.1 36.4-46.3 fL RDW Coefficient of Variation 13.4 13.5 11.5-14.5 % Platelet Count 493 495 130-400 K/uL Mean Platelet Volume 9.6 9.5 7.4-10.4 fL Sodium Level 138 138 136-145 mmol/L Potassium Level 3.5 3.2 3.5-5.1 mmol/L Chloride Level 108 108 98-107 mmol/L Carbon Dioxide Level 25 25 21-32 mmol/L Anion Gap 5.0 5.0 3-11 mmol/L Blood Urea Nitrogen 15 13 7-18 mg/dl Creatinine 1.00 0.98 0.60-1.40 mg/dl Est Creatinine Clear Calc Drug Dose 75.3 76.8 ml/min Estimated GFR () 95.7 98.1 Estimated GFR (Non- 82.6 84.6 BUN/Creatinine Ratio 14.8 13.4 10-20 Random Glucose 108 101 70-99 mg/dl Calcium Level 7.9 8.0 8.5-10.1 mg/dl Magnesium Level 2.0 1.8-2.4 mg/dl Neutrophils (%) (Auto) 73.8 % Lymphocytes (%) (Auto) 11.6 % Monocytes (%) (Auto) 11.0 % Eosinophils (%) (Auto) 1.7 % Basophils (%) (Auto) 0.2 % Neutrophils # (Auto) 11.07 1.4-6.5 K/uL Lymphocytes # (Auto) 1.74 1.2-3.4 K/uL Monocytes # (Auto) 1.65 0.11-0.59 K/uL Eosinophils # (Auto) 0.25 0-0.5 K/uL Basophils # (Auto) 0.03 0-0.2 K/uL Immature Granulocyte % (Auto) 1.7 % Immature Granulocyte # (Auto) 0.26 0.00-0.02 K/uL
[2016-10-13] MEDS ORDERED: VNCS125 PO (15:10)
[2016-10-13] MEDS ORDERED: LCTX PO (15:10)
[2016-10-13] MEDS ORDERED: PRT40 PO (15:10)
--- NOTE | 2016-10-13 15:17 | Discharge Instructions ---
Discharge Instructions Date of Service Oct 13, 2016. Admission Reason for Admission: Arf, Pneumothorax Discharge Discharge Diagnosis / Problem: SBO-resolved,C Diff Colitis,Renal Cell carcinoma s/p extensive surgery Discharge Goals Goal(s): Prevent Disease Progression Activity Recommendations Activity Limitations: resume your previous activity (Take it easy ) . Instructions / Follow-Up Instructions / Follow-Up Dr Larkin on 10/19/16 at 12:30PM at [facility] .Please keep appointment with Dr Mills Current Hospital Diet Patient's current hospital diet: Regular Diet Discharge Diet Recommended Diet: Regular Diet (As tolerated) Pending Studies Studies pending at discharge: no Medical Emergencies . Who to Call and When: Medical Emergencies: If at any time you feel your situation is an emergency, please call 911 immediately. . Non-Emergent Contact Non-Emergency issues call your: Primary Care Provider . Past History Medical & Surgical History: (1) SBO (small bowel obstruction) (2) C. difficile colitis (3) Acute kidney injury (4) Cancer of kidney (5) CAD (coronary artery disease) (6) Hypothyroid (7) Stented coronary artery . "Provider Documentation" section prepared by Tamika Matute. . VTE Core Measure Inpt VTE Proph given/why not?: SCD's
[2016-10-13 15:20] VITALS: BP 104/73; PULSE 103; TEMP 36.7; O2SAT 97
--- NOTE | 2016-10-13 18:31 | Discharge Summary ---
Discharge Summary Date of Service Oct 13, 2016. Discharge Summary Admission Date: Oct 09, 2016 at 06:40 Discharge Date: Oct 13, 2016 Discharge Disposition: Home with services Principal Diagnosis: SBO-resolved,C Diff Colitis,Renal Cell carcinoma s/p extensive surgery Secondary Diagnoses/Problems: Please see H&P and Hospital Progress note Consultations: Surgery,Thoracic surgery and GI Medication Reconciliation New Medications: Lactobacillus Acidophilus (Floranex) 1 Tab Tab 2 TAB PO BID for 10 Days, #40 TAB Pantoprazole (Pantoprazole Sodium) 40 Mg Tab 40 MG PO BID for 30 Days, #60 TAB Vancomycin HCl (Vancomycin HCl) 125 Mg/2.5 Ml Susp 125 MG PO QID for 10 Days, #40 MG Continued Medications: Amlodipine (Norvasc) 10 Mg Tab 10 MG PO QAM, TAB Atorvastatin (Lipitor) 40 Mg Tab 40 MG PO QPM, TAB Clopidogrel (Plavix) 75 Mg Tab 75 MG PO QAM, TAB Lisinopril (Lisinopril) 10 Mg Tab 10 MG PO QAM Thyroid (Rockwood Thyroid) 120 Mg Tab 120 MG PO [id number] Thyroid (Rockwood Thyroid) 120 Mg Tab 60 MG PO SUNDAY Admission Information HPI (per Admitting provider): DATE OF ADMISSION: 10/09/2016 PRIMARY CARE DOCTOR: Dr. Montano. CHIEF COMPLAINT: Abdominal pain. HISTORY OF PRESENT ILLNESS: Medical history obtained from patient and records. Medical history is significant for renal mass likely malignancy left status post surgery, hypertension, CAD status post stenting, chronic anemia (baseline hemoglobin 10), past tobacco abuse, hypothyroidism. In August 2016, the patient had gross hematuria. CAT scan showed a 9 mm left renal mass with renal vein/IVC involvement. CT chest 09/2016 as part of staging workup showed multiple pulmonary nodules possibly metastatic disease, emphysema. Patient underwent open L radical nephrectomy (adrenal sparing), L renal vein/ IVC thrombectomy at [facility] 10/03 under by Urology and CT surgery. Two chest tubes left pleural and posterior mediastinal placed for drainage and subsequently removed. Patient was on the vent postop subsequently extubated on the same day. No pneumothorax on last CXR done during confinement dated 10/04. As per patient , he initially had postop constipation later followed by loose stools after laxative administration during confinement until discharge to home last October 07. At home, continuous diarrhea. Yesterday, increasing abdominal pain, distention, nausea, vomiting. No fever, no chills Poor appetite. Patient not urinating as much. Patient denies chest pain; admits to some shortness of breath, cough productive of white sputum noted during confinement at [facility] [place] [facility]. Patient brought to the Emergency Room. Initial x-ray showed bowel obstruction, small left pneumothorax. NGT placed. Subsequent note of bloody NGT drainage. Stool C. diff positive. IV Flagyl given in the ER. MEDICAL HISTORY: As above. SURGERIES: Nephrectomy HOME MEDICATIONS: Include, Norvasc, Lipitor, Plavix, lisinopril. ALLERGIES: TO BEE STING, BANANA. FAMILY HISTORY: Heart disease. PERSONAL AND SOCIAL HISTORY: Past tobacco abuse. No chronic intake of alcoholic beverages. 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 REVIEW OF SYSTEMS: As per HPI, all other ROS negative PHYSICAL EXAMINATION: VITAL SIGNS: Blood pressure was noted to be initially 86/50 later 100/70, pulse rate 115, RR 20, T 37 O2 94RA SKIN: Pallor. GENERAL: Uncomfortable, no respiratory distress. HEENT: Pale palpebral conjunctivae. Dry mucosa. NGT in place. NECK: No JVD. supple CHEST: Decreased breath sounds. HEART: Tachycardic. ABDOMEN: Some distension, nontender. EXTREMITIES: No edema, no tenderness. NEUROLOGIC: No gross focality. LABORATORY DATA: Hemoglobin was noted to be 10.7, hematocrit 32.7, white cell count 5.7, platelets 293. Sodium 131, potassium 3.4, chloride 93, CO2 27, BUN 37, creatinine 2.3, glucose 120. IMAGING STUDIES: CT abdomen and pelvis initial read showed left-sided pneumothorax partially visualized. Consider CT chest, intact tube noted. Dilated stomach, small bowel loops, and transition to right lower quadrant concerning for small-bowel obstruction, no pneumatosis. ASSESSMENT: 1. Hypotension secondary to hypovolemia secondary to SBO (recent L nephrectomy at [facility] [place]), cdif diarrhea UGIB 2 to emesis 2 to SBO SBP improved after initial fluid resuscitation at the ER 2. hypokalemia, Acute renal failure secondary to above. 3. L renal mass (prob malignancy), L renal vein/IVC thrombi possible lung metastases sp open L radical nephrectomy (adrenal sparing), L renal vein/IVC thrombectomy ( [facility] [place], 10/03/16) 4. Chronic anemia secondary to renal tumor, hemoglobin at baseline. 5. Pneumothorax left, probable secondary spontaneous pneumothorax, emphysematous lungs on imaging 6. Coronary artery disease status post stenting. 7. Hypothyroidism on meds, TSH noted to be elevated 8. Past tobacco abuse. PLAN: PCU baseline UA, monitor creatinine response to IV fluids. Nephrology consult if w/ o improvement Hold antihypertensives for now until BP consistently stable. replace K IV Flagyl for C. diff. Continue NGT decompression, Surgery consult RE SBO (ERMD already in touch with Dr. Kahn.) IV PPI Serial H&H, transfuse pRBCs if hemoglobin less than 8. (hx CAD) Anemia workup Appropriate to hold home Plavix for now GI consult RE UGIB CT chest RE pneumothorax Supplemental O2 CT surgery consult RE pneumothorax Check FT4 to determine need for thyroid medication dose adjustment. Deep venous thrombosis prophylaxis, SCDs. RE UGIB Full code. Hospital Course SBO Presented with abdominal pain with distention complicated by C. diff. Colitis S/P recent Extensive abdominal surgery as below NPO,NGT,Symptomatic medications and Iv Flagyl Surgery input appreciated NGT is discontinued,clears started and tolerating KUB a little worse today 10/12/16 but symptomatically better Advance diet gradually and tolerating Tolerating the diet -soft as he has been on as an OP Likely to go home this afternoon C Diff Colitis Was on IV Flagyl Changed to oral Vanco WCC is increased today Will add IV Flagyl and received one dose of oral Questran D/C on Oral Vaco to finish a course of 14 days and discontinue Flagyl Hypokalemia Getting replacement Will give supplement Hypotension Likely secondary to hypovolemia secondary to SBO (recent L nephrectomy at [facility] [place]), Sepsis due to C diff diarrhea UGIB 2 to emesis 2 to SBO Blood pressure is maintained Acute renal failure secondary to above. IVF and Monitor Renal function is normalized Left Renal mass (prob malignancy), L renal vein/IVC thrombi possible lung metastases S/P open Left radical nephrectomy (adrenal sparing), L renal vein/IVC thrombectomy ([facility] [place], 10/03/16) Further management will depend on Oncology Appointment with Dr Lina Uriostegui left, probable secondary spontaneous pneumothorax, emphysematous lungs on imaging Secondary to recent Surgery Appreciate Thoracic surgery input Check with CXR in AM-remains stable Minimal Pneumothorax remains Chronic anemia secondary to renal tumor, hemoglobin at baseline. Serial H&H, transfuse pRBCs if hemoglobin less than 8. (hx CAD) IV PPI Anemia workup Plavix is on hold for now GI consult RE UGIB-appreciate input Restart Plavix ,Hb remains stable >10 Coronary artery disease status post stenting. No acute symptoms now Has been on Home medications No Chest pain Hypothyroidism on meds, TSH noted to be elevated Continue current dose of Synthroid Past tobacco abuse. Deep venous thrombosis prophylaxis, SCDs. RE UGIB Full code. Discharge home today Total time spent on discharge = 35 minutes This includes examination of the patient, discharge planning, medication reconciliation, and communication with other providers. Discharge Instructions Date of Service Oct 13, 2016. Admission Reason for Admission: Arf, Pneumothorax Discharge Discharge Diagnosis / Problem: SBO-resolved,C Diff Colitis,Renal Cell carcinoma s/p extensive surgery Discharge Goals Goal(s): Prevent Disease Progression Activity Recommendations Activity Limitations: resume your previous activity (Take it easy ) . Instructions / Follow-Up Instructions / Follow-Up Dr Larkin on 10/19/16 at 12:30PM at [facility] .Please keep appointment with Dr Mills Current Hospital Diet Patient's current hospital diet: Regular Diet Discharge Diet Recommended Diet: Regular Diet (As tolerated) Pending Studies Studies pending at discharge: no Medical Emergencies . Who to Call and When: Medical Emergencies: If at any time you feel your situation is an emergency, please call 911 immediately. . Non-Emergent Contact Non-Emergency issues call your: Primary Care Provider . Past History Medical & Surgical History: (1) SBO (small bowel obstruction) (2) C. difficile colitis (3) Acute kidney injury (4) Cancer of kidney (5) CAD (coronary artery disease) (6) Hypothyroid (7) Stented coronary artery . "Provider Documentation" section prepared by Tamika Matute. . VTE Core Measure Inpt VTE Proph given/why not?: SCD's <Electronically signed by Tamika Matute M.D.> Signed: 10/13/16 4081 Additional Copies To Bonilla Larkin MD
[2016-10-15] MEDS ORDERED: ARMOUR THYROID 30 MG TAB PO SCH (09:00)
== END 2016-10-13 16:03 | disposition home health service (06) | DRG 393 ==
LOC: EDBD 01:03 → C.EDB 01:04 → ENRESERV 06:24 → EDBEDREQ 06:26 → C.2T 06:40
PROVIDERS: ADMIT Internal Medicine; ATTEND Internal Medicine
PROC: 0T9B70Z Drainage of Bladder with Drainage Device, Via Natural or Artificial Opening (ICD-10-PCS; principal; 2016-10-09)
DX: K91.3 Postprocedural intestinal obstruction (principal); A41.89 Other specified sepsis; K92.2 Gastrointestinal hemorrhage, unspecified; A04.7 Enterocolitis due to Clostridium difficile; N17.9 Acute kidney failure, unspecified; C78.01 Secondary malignant neoplasm of right lung; C78.02 Secondary malignant neoplasm of left lung; J93.12 Secondary spontaneous pneumothorax; I95.9 Hypotension, unspecified; E87.6 Hypokalemia; J43.9 Emphysema, unspecified; D64.9 Anemia, unspecified; I25.10 Atherosclerotic heart disease of native coronary artery without angina pectoris; E03.9 Hypothyroidism, unspecified; I10 Essential (primary) hypertension; E78.00 Pure hypercholesterolemia, unspecified; Z85.528 Personal history of other malignant neoplasm of kidney; Z90.5 Acquired absence of kidney; Z86.718 Personal history of other venous thrombosis and embolism; Z95.5 Presence of coronary angioplasty implant and graft; Z87.891 Personal history of nicotine dependence; Z79.02 Long term (current) use of antithrombotics/antiplatelets; Z79.899 Other long term (current) drug therapy; Z82.49 Family history of ischemic heart disease and other diseases of the circulatory system; Z83.3 Family history of diabetes mellitus; Z80.42 Family history of malignant neoplasm of prostate; Z80.1 Family history of malignant neoplasm of trachea, bronchus and lung; Z82.5 Family history of asthma and other chronic lower respiratory diseases; Z81.1 Family history of alcohol abuse and dependence; Z81.3 Family history of other psychoactive substance abuse and dependence

== ENCOUNTER 2016-11-24 21:13 | Observation (INO) | payer OTHER ==
[~2016-11-24] VITALS: Ht 167.6 cm; Wt 73.5 kg
[~2016-11-24 21:13] MED LIST changes: -CIPR-255 PO; +LCTX PO; +PRT40 PO; +SUNI37.5 PO; +VNCS125 PO
[2016-11-24] MEDS ORDERED: ATOR-22 PO (22:25)
[2016-11-24] MEDS ORDERED: [UNRECOGNIZED DRUG - CODE] PO (22:25)
[2016-11-24] MEDS ORDERED: ONDANSETRON INJ 2 MG/ML 2 ML VIAL IV STA (22:32)
[2016-11-24] MEDS ORDERED: SODIUM CHLORIDE 0.9% 1000ML 1,000 ML IV STA (22:32)
[2016-11-24 23:08] LABS: BASO % 0.3 %; BASO ABS # 0.04 K/uL (0-0.2); COMPLETE YES; EOS % 0.9 %; HEMATOCRIT 36.5 % (42-52); IG% 0.3 %; LYMPH % 12.6 %; LYMPH ABS # 1.51 K/uL (1.2-3.4); MEAN CORPUSCULAR HGB CONC 32.6 g/dl (32-36); MEAN PLATELET VOLUME 9.7 fL (7.4-10.4); MONO % 5.4 %; NEUT % 80.5 %; PLATELET COUNT 235 K/uL (130-400); WHITE BLOOD COUNT 11.95 K/uL (4.8-10.8)
[2016-11-24 23:27] LABS: ALT/SGPT 27 U/L (12-78); AST/SGOT 18 U/L (15-37); BLOOD UREA NITROGEN 25 mg/dl (7-18); BUN/CREATININE RATIO 17.9 (10-20); CALCIUM 8.6 mg/dl (8.5-10.1); CARBON DIOXIDE 24 mmol/L (21-32); CHLORIDE 106 mmol/L (98-107); CREATININE 1.41 mg/dl (0.60-1.40); GLUCOSE 103 mg/dl (70-99); POTASSIUM 4.8 mmol/L (3.5-5.1); SODIUM 139 mmol/L (136-145)
[2016-11-24 23:32] LABS: ALKALINE PHOSPHATASE 90 U/L (45-117)
--- NOTE | 2016-11-24 23:32 | DIAGNOSTIC IMAGING REPORT ---
SINGLE VIEW CHEST CLINICAL HISTORY: Generalized abdominal pain. FINDINGS: An AP, portable, upright chest radiograph is compared to study dated 10/12/2016. The examination is degraded by portable technique, apical lordotic positioning, and patient rotation. The patient is status post midline sternotomy. The cardiomediastinal silhouette is unremarkable. The lungs and pleural spaces are clear. No pneumothorax is seen. The bony thorax is grossly intact. IMPRESSION: No acute cardiopulmonary abnormality. Electronically signed by: Vinnie Hernandez M.D. 11/24/2016 11:31 PM Dictated Date/Time: 11/24/2016 11:30 PM
[2016-11-24 23:47] LABS: URINE APPEARANCE CLEAR (CLEAR); URINE BILIRUBIN NEG (NEG); URINE COLOR YELLOW; URINE NITRITE NEG (NEG); URINE SPECIFIC GRAVITY 1.023 (1.000-1.030); UROBILINOGEN NEG (NEG); ZZUR CULT IF INDIC CLEAN CATCH NO
[2016-11-24 23:56] LABS: MANUAL MICROSCOPIC REQUIRED? NO; REVIEW REQ? NO
[2016-11-25] MEDS ORDERED: SODIUM CHLORIDE 0.9% 1000ML 1,000 ML IV STA (01:15)
[2016-11-25] MEDS ORDERED: METOCLOPRAMIDE HCL INJ 5 MG/ML 2 ML VIAL IV STA (01:15)
--- NOTE | 2016-11-25 02:24 | EMERGENCY ROOM VISIT NOTE ---
History Report prepared by Shirin: Melody Zamora Under the Supervision of: Dr. Andrew Jackman M.D. First contact with patient: 22:11 Chief Complaint: HYPERTENSION Stated Complaint: HIGH BLOOD PRESSURE 150/101 History of Present Illness The patient is a 56 year old male who presents to the Emergency Room with complaints of persistent hypertension starting 1900 this evening. The patient is currently undergoing chemotherapy for renal cell cancer. He is taking 37.5 mg of Sutent once a day. He is not getting any radiation. He was feeling well until tonight he started feeling slightly dizzy and disoriented. He checked his blood pressure and found that it was elevated. He then had some nausea and vomiting on the way to the ED. He was told to present to the ED if he has any of these symptoms. He had some lisinopril at 2030. He appears more yellow than usual. He has developed a rash on the top of his head and right abdominal swelling more than usual. He denies any fever, chills, diarrhea, chest pain, or SOB. He had his kidney removed 1.5 months ago. Source of History: patient, spouse/significant other Onset: 1899 Position: other (global) Quality: other (hypertension) Timing: other (persistent) Associated Symptoms: + nausea, + vomiting, + rash, No fevers, No chills, No chest pain, No SOB, No diarrhea Note: Pt reports dizziness, appears yellow. Review of Systems See HPI for pertinent positives and negatives. A total of ten systems were reviewed and were otherwise negative. Past Medical & Surgical Medical Problems: (1) ARF (acute renal failure) (2) CAD (coronary artery disease) (3) Hypothyroid (4) Pneumothorax Surgical Problems: (1) Stented coronary artery Family History No pertinent family history stated. 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), 1 TAB PO DAILYBB Allergies Coded Allergies: BEE STING (Verified Allergy, Unknown, SWELLING, 11/24/16) Banana (Verified Allergy, Unknown, ANAPHYLAXIS, 11/24/16) Physical Exam Vital Signs Date Time Temp Pulse Resp B/P (MAP) Pulse Ox O2 Delivery O2 Flow Rate FiO2 11/25/16 03:01 133/97 11/25/16 03:00 86 20 94 11/25/16 01:35 81 153/113 95 Room Air 11/25/16 01:13 96 11/25/16 00:01 82 147/106 97 Room Air 11/24/16 22:13 63 20 96 11/24/16 22:01 149/110 11/24/16 21:51 66 11/24/16 21:47 98 Room Air 11/24/16 21:44 162/107 11/24/16 21:19 36.4 72 18 156/105 99 Room Air Physical Exam GENERAL: Awake, alert, chronically ill-appearing, appearing fatigued, in no acute distress HENT: Normocephalic, atraumatic. Dry mucous membranes. EYES: Normal conjunctiva. Sclera non-icteric. NECK: Supple. No nuchal rigidity. FROM. No JVD. RESPIRATORY: Clear to auscultation. CARDIAC: Regular rate, normal rhythm. Extremities warm and well perfused. Pulses equal. ABDOMEN: Soft, non-distended. No tenderness to palpation. No rebound or guarding. No masses. RECTAL: Deferred. MUSCULOSKELETAL: Chest examination reveals no tenderness. The back is symmetrical on inspection without obvious abnormality. There is no CVA tenderness to palpation. No joint edema. LOWER EXTREMITIES: Calves are equal size bilaterally and non-tender. No edema. No discoloration. NEURO: Normal sensorium. No sensory or motor deficits noted. SKIN: Warm, dry, but mildly jaundiced. Medical Decision & Procedures ER Provider Diagnostic Interpretation: Radiology results as stated below per my review and radiologist interpretation: SINGLE VIEW CHEST CLINICAL HISTORY: Generalized abdominal pain. FINDINGS: An AP, portable, upright chest radiograph is compared to study dated 10/12/2016. The examination is degraded by portable technique, apical lordotic positioning, and patient rotation. The patient is status post midline sternotomy. The cardiomediastinal silhouette is unremarkable. The lungs and pleural spaces are clear. No pneumothorax is seen. The bony thorax is grossly intact. IMPRESSION: No acute cardiopulmonary abnormality. Electronically signed by: Vinnie Hernandez M.D. 11/24/2016 11:31 PM Dictated Date/Time: 11/24/2016 11:30 PM Laboratory Results 11/24/16 22:55 Red Blood Count 4.40, Mean Corpuscular Volume 83.0, Mean Corpuscular Hemoglobin 27.0, Mean Corpuscular Hemoglobin Concent 32.6, Mean Platelet Volume 9.7, Neutrophils (%) (Auto) 80.5, Lymphocytes (%) (Auto) 12.6, Monocytes (%) (Auto) 5.4, Eosinophils (%) (Auto) 0.9, Basophils (%) (Auto) 0.3, Neutrophils # (Auto) 9.60, Lymphocytes # (Auto) 1.51, Monocytes # (Auto) 0.65, Eosinophils # (Auto) 0.11, Basophils # (Auto) 0.04 Test 11/24/16 22:55 11/24/16 23:40 White Blood Count 11.95 K/uL (4.8-10.8) Red Blood Count 4.40 M/uL (4.7-6.1) Hemoglobin 11.9 g/dL (14.0-18.0) Hematocrit 36.5 % (42-52) Mean Corpuscular Volume 83.0 fL (80-100) Mean Corpuscular Hemoglobin 27.0 pg (25-34) Mean Corpuscular Hemoglobin Concent 32.6 g/dl (32-36) Platelet Count 235 K/uL (130-400) Mean Platelet Volume 9.7 fL (7.4-10.4) Neutrophils (%) (Auto) 80.5 % Lymphocytes (%) (Auto) 12.6 % Monocytes (%) (Auto) 5.4 % Eosinophils (%) (Auto) 0.9 % Basophils (%) (Auto) 0.3 % Neutrophils # (Auto) 9.60 K/uL (1.4-6.5) Lymphocytes # (Auto) 1.51 K/uL (1.2-3.4) Monocytes # (Auto) 0.65 K/uL (0.11-0.59) Eosinophils # (Auto) 0.11 K/uL (0-0.5) Basophils # (Auto) 0.04 K/uL (0-0.2) RDW Standard Deviation 44.2 fL (36.4-46.3) RDW Coefficient of Variation 14.6 % (11.5-14.5) Immature Granulocyte % (Auto) 0.3 % Immature Granulocyte # (Auto) 0.04 K/uL (0.00-0.02) Est Creatinine Clear Calc Drug Dose 51.5 ml/min Lactic Acid Level 1.6 mmol/L (0.4-2.0) Magnesium Level 1.9 mg/dl (1.8-2.4) Total Bilirubin 0.3 mg/dl (0.2-1) Direct Bilirubin < 0.1 mg/dl (0-0.2) Aspartate Amino Transf (AST/SGOT) 18 U/L (15-37) Alanine Aminotransferase (ALT/SGPT) 27 U/L (12-78) Alkaline Phosphatase 90 U/L (45-117) Troponin I < 0.015 ng/ml (0-0.045) Total Protein 7.4 gm/dl (6.4-8.2) Albumin 3.6 gm/dl (3.4-5.0) Lipase 230 U/L (73-393) Thyroid Stimulating Hormone (TSH) 5.810 uIu/ml (0.300-4.500) Urine Color YELLOW Urine Appearance CLEAR (CLEAR) Urine pH 5.0 (4.5-7.5) Urine Specific [place] 1.023 (1.000-1.030) Urine Protein NEG (NEG) Urine Glucose (UA) NEG (NEG) Urine Ketones NEG (NEG) Urine Occult Blood NEG (NEG) Urine Nitrite NEG (NEG) Urine Bilirubin NEG (NEG) Urine Urobilinogen NEG (NEG) Urine Leukocyte Esterase NEG (NEG) Laboratory results reviewed by me Medications Administered Medications (Trade) Dose Ordered Sig/Francisco Javier Route Start Time Stop Time Status Last Admin Dose Admin Sodium Chloride 1,000 ml @ 999 mls/hr Q1H1M STAT IV 11/24/16 22:32 11/24/16 23:32 DC 11/24/16 23:15 999 MLS/HR Ondansetron HCl (Zofran Inj) 4 mg NOW STAT IV 11/24/16 22:32 11/24/16 22:35 DC 11/24/16 23:15 4 MG Sodium Chloride 1,000 ml @ 250 mls/hr Q4H STAT IV 11/25/16 01:15 11/25/16 05:08 DC 11/25/16 01:33 250 MLS/HR Metoclopramide HCl (Reglan Inj) 10 mg NOW STAT IV 11/25/16 01:15 11/25/16 01:16 DC 11/25/16 01:33 10 MG ECG Indication: other (dizziness) Rate (beats per minute): 61 Rhythm: normal sinus Findings: no acute ischemic change, other (normal axis) ED Course 2230: The patient was evaluated in room C4. A complete history and physical exam was performed. 2232: Zofran Inj 4 mg IV, NSS 1000 ml @ 999 mls/hr IV. 0115: Reglan Inj 10 mg IV, NSS 1000 ml @ 250 mls/hr IV. 0120: Upon reexamination, the patient was stable. I discussed the test results and treatment plan with him. He verbalized agreement of the treatment plan. The patient will be evaluated for further management. 212: [facility] The patient will be evaluated for further treatment and disposition. Medical Decision I reviewed the patient's past medical history, medications, and the nursing notes as described above. Differential diagnosis: dehydration, electrolyte abnormality, chemotherapy adverse effect, pneumonia, bronchitis, UTI, gastroenteritis. The patient is a 56-year-old gentleman with a past medical history of renal cell carcinoma status post kidney resection currently on chemotherapy who presents emergency Department with nausea and vomiting and chills. History of present illness. The patient appears uncomfortable but in no acute distress. He is afebrile with stable vital signs. Examination patient appears clinically dry with dry mucous membranes. WBC mildly elevated but nonspecific. Chest x- ray negative. UA negative for infection. Creatinine elevated 1.4 which is a new mild AK after the patient. Labs otherwise unremarkable including lactate within normal limits. Patient feeling slightly improved after IV fluids however still fatigued. Given the patient's AK I the setting of single kidney admit the patient for hydration and monitoring for improvement. [facility] for further management. Medication Reconcilliation Current Medication List: was personally reviewed by me Blood Pressure Screening Patient's blood pressure: Elevated blood pressure Blood pressure disposition: Elevated BP felt to be situational Consults Time Called: 113 Consulting Physician: Dr. Erwin [facility] Returned Call: 212 Discussed the patient's case. The patient will be evaluated for further treatment and disposition. Impression Primary Impression: IRIS (acute kidney injury) Scribe Attestation The scribe's documentation has been prepared under my direction and personally reviewed by me in its entirety. I confirm that the note above accurately reflects all work, treatment, procedures, and medical decision making performed by me. Departure Information Dispostion Being Evaluated By Hospitalist Referrals No Doctor, Assigned (PCP) Patient Instructions My [facility]
[2016-11-25 03:00] VITALS: O2SAT 94
[2016-11-25 03:39] LABS: MAGNESIUM 1.9 mg/dl (1.8-2.4)
[2016-11-25] MEDS ORDERED: ONDANSETRON INJ 2 MG/ML 2 ML VIAL IV PRN (04:00)
[2016-11-25] MEDS ORDERED: PROMETHAZINE HCL INJ 12.5 MG in SODIUM CHLORIDE 0.9% 50ML 50 ML IV PRN (04:00)
[2016-11-25] MEDS ORDERED: HYDROmorphone INJ 0.5 MG/0.5 ML SYR IV PRN (04:00)
[2016-11-25] MEDS ORDERED: TRAMADOL HCL 50 MG TAB PO PRN (04:00)
[2016-11-25] MEDS: SODIUM CHLORIDE 0.9% 1000ML 1,000 ML IV ONE ×2 (04:00→06:27)
[2016-11-25] MEDS ORDERED: IV FLUIDS COMPLETED PRN (04:30)
[2016-11-25] MEDS ORDERED: ACETAMINOPHEN 325 MG TAB ONE (04:41)
[2016-11-25 05:21] VITALS: BMI 30.1
--- NOTE | 2016-11-25 07:03 | DIAGNOSTIC IMAGING REPORT ---
CT SCAN OF THE BRAIN WITHOUT IV CONTRAST CLINICAL HISTORY: Headache. COMPARISON STUDY: CT of the brain dated 09/05/2016. TECHNIQUE: Unenhanced axial CT scan of the brain is performed from the vertex to the skull base. A dose lowering technique was utilized adhering to the principles of ALARA. FINDINGS: Brain parenchyma: The brain parenchyma is normal in appearance. There is no hemorrhage, mass effect, or evidence of acute territorial ischemia by CT criteria. Ellis-white matter is preserved. No extra-axial fluid collection is seen. Ventricles, sulci, cisterns: Normal in configuration. Intracranial vasculature: There is atherosclerotic calcification of the cavernous carotid arteries. Calvarium: Unremarkable. Sinuses and mastoids: The visualized paranasal sinuses are clear. The mastoid air cells are well pneumatized. Orbits: The bony orbits are grossly intact. IMPRESSION: There is no hemorrhage, mass effect, or evidence of acute territorial ischemia by CT criteria. Electronically signed by: Vinnie Hernandez M.D. 11/25/2016 7:02 AM Dictated Date/Time: 11/25/2016 6:59 AM
[2016-11-25 07:20] LABS: BUN/CREATININE RATIO 15.3 (10-20); CALCIUM 8.5 mg/dl (8.5-10.1); CREATININE 1.2 mg/dl (0.60-1.40); POTASSIUM 4.5 mmol/L (3.5-5.1)
--- NOTE | 2016-11-25 07:24 | DIAGNOSTIC IMAGING REPORT ---
CT SCAN OF THE ABDOMEN AND PELVIS WITHOUT IV CONTRAST CLINICAL HISTORY: Right-sided abdominal pain. COMPARISON STUDY: Abdominal CT dated 10/09/2016. TECHNIQUE: CT scan of the abdomen and pelvis is performed from the lung bases to the proximal femora. Images are reviewed in the axial, sagittal, and coronal planes. IV contrast was not administered for this examination as per the referring clinician. Note that the examination was performed in suboptimal fashion without oral and IV contrast. A dose lowering technique was utilized adhering to the principles of ALARA. CT DOSE: 931.84 mGy.cm FINDINGS: Lung bases: The patient is status post midline sternotomy. The heart is normal in size and without pericardial effusion. The coronary arteries are densely calcified. Emphysematous change is noted. There is no airspace consolidation or pleural effusion. There are numerous (greater than 15) pulmonary nodules present at both lung bases. The largest measures 7 mm seen in the right lower lobe on image #44. There is a tiny hiatal hernia. Liver: The unenhanced liver is normal in size, contour, and attenuation. There is no intrahepatic biliary ductal dilatation. Gallbladder: Unremarkable. Spleen: Normal in size and attenuation. There is a calcified splenic granuloma. Pancreas: The unenhanced pancreas is grossly unremarkable. Adrenal glands: Unremarkable. Kidneys: The left kidney is surgically absent. The right kidney is normal in size and without hydronephrosis. No right renal calculi are identified. There is no evidence of contour deforming renal mass lesion involving the right kidney. No recurrent/residual soft tissue lesion is identified in the left renal fossa. Abdominal vasculature: The abdominal aorta is normal in course and caliber noting moderate to advanced atherosclerotic calcification. Bowel: There is mild to moderate colonic diverticulosis without CT evidence of acute diverticulitis. No bowel obstruction is seen. The appendix is well-visualized and normal. Peritoneum: There is no intraperitoneal free air or abdominal ascites. There is a midline surgical scar. A small fat-containing umbilical hernia is identified. Lymphadenopathy: None. Pelvic viscera: The bladder, prostate, and seminal vesicles are normal as visualized. There is a small fat-containing left inguinal hernia. Skeletal structures: The skeletal structures are osteopenic. Advanced endplate sclerosis is seen at L5-S1. Minimal degenerative changes seen at the remaining lumbar levels. No lytic or blastic lesions are seen. IMPRESSION: 1. There are no acute infectious or inflammatory findings in the abdomen or pelvis. 2. Mild to moderate colonic diverticulosis without CT evidence of acute diverticulitis. 3. Status post left nephrectomy. There is no evidence of metastatic disease in the abdomen or pelvis. 4. There are numerous (greater than 15) small pulmonary nodules seen at both lung bases measuring up to 7 mm. These are pathologically indeterminant and pulmonary metastases are not excluded. 5. Additional findings as above. Electronically signed by: Vinnie Hernandez M.D. 11/25/2016 7:23 AM Dictated Date/Time: 11/25/2016 7:11 AM
[2016-11-25 07:27] VITALS: BP 116/79; PULSE 70; TEMP 36.3; O2SAT 96
--- NOTE | 2016-11-25 07:48 | HISTORY & PHYSICAL EXAMINATION ---
DATE OF ADMISSION: 11/25/2016 PRIMARY CARE PHYSICIAN: Bonilla Larkin MD. CHIEF COMPLAINT: Abdominal pain. HISTORY OF PRESENT ILLNESS: History obtained from patient and records. Medical history significant for metastatic renal cell carcinoma, status post surgery, ongoing chemotherapy, hypertension, CAD post stenting, chronic anemia (baseline hemoglobin 10-11), past tobacco abuse, hypothyroidism, history of C. diff. Recent confinement October 2016 for small-bowel obstruction and C. diff colitis. Patient also noted to have UGIB from emesis. Bowel obstruction resolved with conservative management. Patient discharged on p.o. vancomycin. Patient started on Sutent chemotherapy about 2 weeks ago. Yesterday, the patient noted right-sided abdominal discomfort, achy, nausea, vomiting. Good bowel movement. No fever, no chills, no chest pain, no shortness of breath. Achy generalized headache. SBP 150s which is higher than usual as per patient. Px brought to the Emergency Room. MEDICAL HISTORY: As above. SURGERIES: He has had nephrectomy. HOME MEDICATIONS: Include Plavix, Lipitor, lisinopril, Sutent, thyroid medicine. ALLERGIES: BEE STING AND BANANA. FAMILY HISTORY: Heart disease. PERSONAL AND SOCIAL HISTORY: Past tobacco abuse, no chronic alcohol intake. 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 REVIEW OF SYSTEMS: As per HPI, alll other ROS negative. PHYSICAL EXAMINATION: VITAL SIGNS: Blood pressure was noted to be 150/105, pulse rate 86, RR 20 T 37 O2 98 room air. GENERAL: Noted to be slightly anxious, obese, no respiratory distress. SKIN: Pallor, warm. HEENT: Partial alopecia, rash on the vertex. Pale palpebral conjunctivae, no ptosis. Dry buccal mucosa. NECK: No JVD. Supple. No tenderness CHEST: Clear to auscultation.No tenderness. CV: Regular rate and rhythm. Palpable lower extremity pulses. ABDOMEN: Some distention. Minimal right-sided abdominal tenderness. EXTREMITIES: No edema noted at this time. No tenderness,no gross deformities. NEUROLOGIC: Coherent, no gross focality. LABORATORY DATA: Hemoglobin was noted to be 11.9, hematocrit 36.1, white cells 11.9, platelets noted to be 235. Sodium 139, potassium 4.8, chloride 106, CO2 24, BUN 20, creatinine 1.4, glucose 103. CT abdomen and pelvis initial read, enteritis. CT of the head initial read, no acute pathology. Chest x-ray, no acute cardiopulmonary findings. ASSESSMENT: 1. Acute renal failure secondary to gastrointestinal upset ? Chemotherapy related 2. Renal cell cancer w lung metastases status post surgery, ongoing chemotherapy. 3. Hypertension, slightly elevated. 4. Past tobacco abuse. 5. History of Clostridium difficile, status post treatment. PLAN: Observation PCU monitor creatinine response to IV fluids. Hold ACEI until creatinine at baseline. DVT prophylaxis, SCDs RE Recent GI bleed from SBO. Full code. MTDD
[2016-11-25] MEDS ORDERED: [UNRECOGNIZED DRUG - OTHER] SCH (08:00)
[2016-11-25] MEDS: CLOPIDOGREL BISULFATE 75 MG TAB PO SCH (08:02)
[2016-11-25 11:15] VITALS: BP 156/106; PULSE 70; TEMP 36.3; O2SAT 98
[2016-11-25] MEDS ORDERED: SUNITINIB MALATE 37.5 MG PO SCH (11:30)
[2016-11-25] MEDS ORDERED: NURSING VERBAL MED ORDER ONE (11:45)
[2016-11-25] MEDS ORDERED: LISINOPRIL 10 MG TAB PO ONE (12:00)
--- NOTE | 2016-11-25 12:04 | Progress Note ---
Internal Med Progress Note Date of Service: Nov 25, 2016. Provider Documentation: SUBJECTIVE: The patient was seen and examined Admitted with Nausea and Weakness-not been drinking enough fluid at home Has had Loose stool this AM No abdominal pain .nausea and or vomiting OBJECTIVE: Vital Signs-as noted below Exam: General-No distress at rest Eyes-Normal ENT-normal Neck-Supple Lungs-clear to ausucltate bilaterally Heart-Regular,no murmur appreciated Abdomen-Benign,no masses,bowel sound present Extremities-NO edema Neuro-AAOx3 Lab data as noted below. ASSESSMENT & PLAN: Acute renal failure Secondary to gastrointestinal upset, possibly from Sutent-Chemotherapeutic agent. Dehydration with increase in BUN and Creatinine Clinically much better Continue IVF Like to be discharged HTN Going UP Will restart Lisinopril Ongoing Diarrhea History of Clostridium difficile, status post treatment. Stool for C Diff Colitis Renal cell cancer postsurgery with lung metastases, Ongoing chemotherapy. Hypertension, slightly elevated. Past tobacco abuse. DVT prophylaxis, SCDs Recent GI bleed. Full code. DVT PROPHYLAXIS [] DISPOSITION [] Vital Signs: Date Time Temp Pulse Resp B/P (MAP) Pulse Ox O2 Delivery O2 Flow Rate FiO2 11/25/16 11:15 36.3 70 18 156/106 (123) 98 Room Air 11/25/16 08:00 Room Air 11/25/16 07:27 36.3 70 18 116/79 (91) 96 11/25/16 05:21 Room Air 11/25/16 03:01 133/97 11/25/16 03:00 86 20 94 11/25/16 01:35 81 153/113 95 Room Air 11/25/16 01:13 96 11/25/16 00:01 82 147/106 97 Room Air 11/24/16 22:13 63 20 96 11/24/16 22:01 149/110 11/24/16 21:51 66 11/24/16 21:47 98 Room Air 11/24/16 21:44 162/107 11/24/16 21:19 36.4 72 18 156/105 99 Room Air Lab Results: Results Past 24 Hours Test 11/24/16 22:55 11/24/16 23:40 11/25/16 06:30 Range/Units White Blood Count 11.95 4.8-10.8 K/uL Red Blood Count 4.40 4.7-6.1 M/uL Hemoglobin 11.9 14.0-18.0 g/dL Hematocrit 36.5 42-52 % Mean Corpuscular Volume 83.0 80-100 fL Mean Corpuscular Hemoglobin 27.0 25-34 pg Mean Corpuscular Hemoglobin Concent 32.6 32-36 g/dl Platelet Count 235 130-400 K/uL Mean Platelet Volume 9.7 7.4-10.4 fL Neutrophils (%) (Auto) 80.5 % Lymphocytes (%) (Auto) 12.6 % Monocytes (%) (Auto) 5.4 % Eosinophils (%) (Auto) 0.9 % Basophils (%) (Auto) 0.3 % Neutrophils # (Auto) 9.60 1.4-6.5 K/uL Lymphocytes # (Auto) 1.51 1.2-3.4 K/uL Monocytes # (Auto) 0.65 0.11-0.59 K/uL Eosinophils # (Auto) 0.11 0-0.5 K/uL Basophils # (Auto) 0.04 0-0.2 K/uL RDW Standard Deviation 44.2 36.4-46.3 fL RDW Coefficient of Variation 14.6 11.5-14.5 % Immature Granulocyte % (Auto) 0.3 % Immature Granulocyte # (Auto) 0.04 0.00-0.02 K/uL Sodium Level 139 139 136-145 mmol/L Potassium Level 4.8 4.5 3.5-5.1 mmol/L Chloride Level 106 107 98-107 mmol/L Carbon Dioxide Level 24 25 21-32 mmol/L Anion Gap 9.0 7.0 3-11 mmol/L Blood Urea Nitrogen 25 18 7-18 mg/dl Creatinine 1.41 1.20 0.60-1.40 mg/dl Est Creatinine Clear Calc Drug Dose 51.5 68.4 ml/min Estimated GFR () 63.2 76.8 Estimated GFR (Non- 54.5 66.3 BUN/Creatinine Ratio 17.9 15.3 10-20 Random Glucose 103 94 70-99 mg/dl Lactic Acid Level 1.6 0.4-2.0 mmol/L Calcium Level 8.6 8.5 8.5-10.1 mg/dl Magnesium Level 1.9 1.8-2.4 mg/dl Total Bilirubin 0.3 0.2-1 mg/dl Direct Bilirubin < 0.1 0-0.2 mg/dl Aspartate Amino Transf (AST/SGOT) 18 15-37 U/L Alanine Aminotransferase (ALT/SGPT) 27 12-78 U/L Alkaline Phosphatase 90 45-117 U/L Troponin I < 0.015 0-0.045 ng/ml Total Protein 7.4 6.4-8.2 gm/dl Albumin 3.6 3.4-5.0 gm/dl Lipase 230 73-393 U/L Thyroid Stimulating Hormone (TSH) 5.810 0.300-4.500 uIu/ml Urine Color YELLOW Urine Appearance CLEAR CLEAR Urine pH 5.0 4.5-7.5 Urine Specific [place] 1.023 1.000-1.030 Urine Protein NEG NEG Urine Glucose (UA) NEG NEG Urine Ketones NEG NEG Urine Occult Blood NEG NEG Urine Nitrite NEG NEG Urine Bilirubin NEG NEG Urine Urobilinogen NEG NEG Urine Leukocyte Esterase NEG NEG Microbiology Results 11/25/16 C.difficile Toxin B Gene (PCR), Received Pending
[2016-11-25 12:51] VITALS: BP 127/89; PULSE 81; O2SAT 95
[2016-11-25] MEDS ORDERED: VANCOMYCIN HCL 250 MG/5 ML SOLN PO ONE (14:45)
[2016-11-25] MEDS ORDERED: RASPBERRY SYRUP 5 ML UDP PO ONE (14:45)
[2016-11-25 15:36] VITALS: BP 130/89; PULSE 74; TEMP 36.6; O2SAT 97
[2016-11-25] MEDS: VANCOMYCIN HCL 250 MG/5 ML SOLN PO SCH ×2 (17:33→20:14)
[2016-11-25] MEDS: RASPBERRY SYRUP 5 ML UDP PO SCH ×2 (17:33→20:14)
[2016-11-25] MEDS: LACTOBACILLUS ACIDOPHILUS (FLORANEX) TAB PO SCH (17:35)
[2016-11-25] MEDS: ACETAMINOPHEN 325 MG TAB PO PRN (20:16)
[2016-11-25] MEDS ORDERED: ATORVASTATIN 20 MG TAB PO SCH (21:00)
[2016-11-26 00:15] VITALS: BP 124/93; PULSE 77; TEMP 36.4; O2SAT 97
[2016-11-26 04:13] VITALS: BP 124/89; PULSE 74; TEMP 36.7; O2SAT 95
[2016-11-26 05:54] VITALS: Ht 167.6 cm; Wt 73.5 kg
[2016-11-26 06:12] LABS: BUN/CREATININE RATIO 14.4 (10-20); CALCIUM 8.5 mg/dl (8.5-10.1); CREATININE 1.4 mg/dl (0.60-1.40); POTASSIUM 4.5 mmol/L (3.5-5.1)
[2016-11-26] MEDS ORDERED: THYROID 120 MG PO SCH (06:30)
[2016-11-26] MEDS: ACETAMINOPHEN 325 MG TAB PO PRN (06:35)
[2016-11-26] MEDS: THYROID 120 MG PO SCH ×2 (06:37→06:40)
[2016-11-26 07:09] VITALS: BP 134/89; PULSE 79; TEMP 36.6; O2SAT 96
[2016-11-26] MEDS ORDERED: LISINOPRIL 10 MG TAB PO SCH (08:00)
[2016-11-26] MEDS ORDERED: SUNITINIB MALATE 37.5 MG PO SCH (08:00)
[2016-11-26] MEDS: RASPBERRY SYRUP 5 ML UDP PO SCH (08:18)
[2016-11-26] MEDS: VANCOMYCIN HCL 250 MG/5 ML SOLN PO SCH (08:18)
[2016-11-26] MEDS: LACTOBACILLUS ACIDOPHILUS (FLORANEX) TAB PO SCH (08:19)
[2016-11-26] MEDS: CLOPIDOGREL BISULFATE 75 MG TAB PO SCH (08:19)
--- NOTE | 2016-11-26 10:38 | Progress Note ---
Internal Med Progress Note Date of Service: Nov 26, 2016. Provider Documentation: SUBJECTIVE: The patient was seen and examined Admitted with Nausea and Weakness-not been drinking enough fluid at home Has had Loose stool this AM and THAT CAME BACK POSITIVE FOR C DIFF No abdominal pain .nausea and or vomiting Bowel is normal Wants to go home OBJECTIVE: Vital Signs-as noted below Exam: General-No distress at rest Eyes-Normal ENT-normal Neck-Supple Lungs-clear to ausucltate bilaterally Heart-Regular,no murmur appreciated Abdomen-Benign,no masses,bowel sound present Extremities-NO edema Neuro-AAOx3 Lab data as noted below. ASSESSMENT & PLAN: 2nd Attack of C diff in 1 months Acute renal failure Secondary to gastrointestinal upset, possibly from Sutent-Chemotherapeutic agent. Dehydration with increase in BUN and Creatinine Clinically much better Continue IVF for now Renal function is much better will discharge home today Advised to drink more fluid HTN Going UP Will restart Lisinopril Controlled Ongoing Diarrhea History of Clostridium difficile, status post treatment. Stool for C Diff Colitis-POSITIVE Vancomycin started Renal cell cancer postsurgery with lung metastases, Ongoing chemotherapy. Hypertension, slightly elevated. Past tobacco abuse. DVT prophylaxis, SCDs Recent GI bleed. Full code. Vital Signs: Date Time Temp Pulse Resp B/P (MAP) Pulse Ox O2 Delivery O2 Flow Rate FiO2 11/26/16 09:19 Room Air 11/26/16 07:09 36.6 79 18 134/89 (104) 96 11/26/16 04:13 36.7 74 18 124/89 (101) 95 Room Air 11/26/16 00:15 Room Air 11/26/16 00:15 36.4 77 18 124/93 (103) 97 Room Air 11/25/16 15:36 36.6 74 20 130/89 (103) 97 Room Air 11/25/16 12:51 81 16 127/89 (102) 95 11/25/16 11:15 36.3 70 18 156/106 (123) 98 Room Air Lab Results: Results Past 24 Hours Test 11/26/16 05:17 Range/Units Sodium Level 140 136-145 mmol/L Potassium Level 4.5 3.5-5.1 mmol/L Chloride Level 108 98-107 mmol/L Carbon Dioxide Level 26 21-32 mmol/L Anion Gap 6.0 3-11 mmol/L Blood Urea Nitrogen 20 7-18 mg/dl Creatinine 1.40 0.60-1.40 mg/dl Est Creatinine Clear Calc Drug Dose 51.9 ml/min Estimated GFR () 63.7 Estimated GFR (Non- 55.0 BUN/Creatinine Ratio 14.4 10-20 Random Glucose 94 70-99 mg/dl Calcium Level 8.5 8.5-10.1 mg/dl
[2016-11-26] MEDS ORDERED: VNCS125 PO (10:42)
[2016-11-26] MEDS ORDERED: LCTX PO (10:42)
--- NOTE | 2016-11-26 10:46 | Discharge Instructions ---
Discharge Instructions Date of Service Nov 26, 2016. Admission Reason for Admission: ARF Discharge Discharge Diagnosis / Problem: IRIS-Dehydration,C Diff Colitis (2nd in 1 month) ,Renal Cell Ca on Chemo Discharge Goals Goal(s): Prevent Disease Progression Activity Recommendations Activity Limitations: resume your previous activity . Instructions / Follow-Up Instructions / Follow-Up Dr Larkin on 11/29/16 at 12:45 PM Current Hospital Diet Patient's current hospital diet: AHA Diet (Heart Healthy) Discharge Diet Recommended Diet: AHA Diet (Heart Healthy) Fluid Restriction: None Pending Studies Studies pending at discharge: no Medical Emergencies . Who to Call and When: Medical Emergencies: If at any time you feel your situation is an emergency, please call 911 immediately. . Non-Emergent Contact Non-Emergency issues call your: Primary Care Provider . Past History Medical & Surgical History: (1) C. difficile colitis (2) ARF (acute renal failure) (3) Cancer of kidney (4) CAD (coronary artery disease) (5) Hypothyroid . "Provider Documentation" section prepared by Tamika Matute. . VTE Core Measure Inpt VTE Proph given/why not?: SCD's (H/O GI bleed)
[2016-11-26 10:53] VITALS: BP 134/89; PULSE 79; TEMP 36.6; O2SAT 96
[2016-11-27] MEDS ORDERED: THYROID 120 MG PO SCH (06:30)
--- NOTE | 2016-11-27 07:30 | Discharge Summary ---
Discharge Summary Date of Service Nov 27, 2016. Discharge Summary Admission Date: Nov 25, 2016 at 03:56 Discharge Date: Nov 26, 2016 Principal Diagnosis: IRIS-Dehydration,C Diff Colitis (2nd in 1 month),Renal Cell Ca on Chemo Secondary Diagnoses/Problems: Please see H&P and Hospital Progress note Medication Reconciliation New Medications: Vancomycin HCl (Vancomycin HCl) 125 Mg/2.5 Ml Susp 125 MG PO QID for 13 Days, #52 Lactobacillus Acidophilus (Floranex) 1 Tab Tab 2 TAB PO TIDM for 15 Days, #90 TAB Continued Medications: Atorvastatin (Lipitor) 20 Mg Tab 20 MG PO HS, TAB Clopidogrel (Plavix) 75 Mg Tab 75 MG PO QAM, TAB Lisinopril (Lisinopril) 10 Mg Tab 10 MG PO QAM Sunitinib Malate (Sutent) 37.5 Mg Cap 1 CAP PO DAILY 28 DAYS ON, 14 DAYS OFF Thyroid (Laboratory Animal Facility Supervisor Thyroid) 120 Mg Tab 1 TAB PO DAILYBB 1.5 TAB PO ON SUNDAYS* Admission Information HPI (per Admitting provider): DATE OF ADMISSION: 11/25/2016 PRIMARY CARE PHYSICIAN: Bonilla Larkin MD. CHIEF COMPLAINT: Abdominal pain. HISTORY OF PRESENT ILLNESS: History obtained from patient and records. Medical history significant for metastatic renal cell carcinoma, status post surgery, ongoing chemotherapy, hypertension, CAD post stenting, chronic anemia (baseline hemoglobin 10-11), past tobacco abuse, hypothyroidism, history of C. diff. Recent confinement October 2016 for small-bowel obstruction and C. diff colitis. Patient also noted to have UGIB from emesis. Bowel obstruction resolved with conservative management. Patient discharged on p.o. vancomycin. Patient started on Sutent chemotherapy about 2 weeks ago. Yesterday, the patient noted right-sided abdominal discomfort, achy, nausea, vomiting. Good bowel movement. No fever, no chills, no chest pain, no shortness of breath. Achy generalized headache. SBP 150s which is higher than usual as per patient. Px brought to the Emergency Room. MEDICAL HISTORY: As above. SURGERIES: He has had nephrectomy. HOME MEDICATIONS: Include Plavix, Lipitor, lisinopril, Sutent, thyroid medicine. ALLERGIES: BEE STING AND BANANA. FAMILY HISTORY: Heart disease. PERSONAL AND SOCIAL HISTORY: Past tobacco abuse, no chronic alcohol intake. 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 REVIEW OF SYSTEMS: As per HPI, alll other ROS negative. PHYSICAL EXAMINATION: VITAL SIGNS: Blood pressure was noted to be 150/105, pulse rate 86, RR 20 T 37 O2 98 room air. GENERAL: Noted to be slightly anxious, obese, no respiratory distress. SKIN: Pallor, warm. HEENT: Partial alopecia, rash on the vertex. Pale palpebral conjunctivae, no ptosis. Dry buccal mucosa. NECK: No JVD. Supple. No tenderness CHEST: Clear to auscultation.No tenderness. CV: Regular rate and rhythm. Palpable lower extremity pulses. ABDOMEN: Some distention. Minimal right-sided abdominal tenderness. EXTREMITIES: No edema noted at this time. No tenderness,no gross deformities. NEUROLOGIC: Coherent, no gross focality. LABORATORY DATA: Hemoglobin was noted to be 11.9, hematocrit 36.1, white cells 11.9, platelets noted to be 235. Sodium 139, potassium 4.8, chloride 106, CO2 24, BUN 20, creatinine 1.4, glucose 103. CT abdomen and pelvis initial read, enteritis. CT of the head initial read, no acute pathology. Chest x-ray, no acute cardiopulmonary findings. ASSESSMENT: 1. Acute renal failure secondary to gastrointestinal upset ? Chemotherapy related 2. Renal cell cancer w lung metastases status post surgery, ongoing chemotherapy. 3. Hypertension, slightly elevated. 4. Past tobacco abuse. 5. History of Clostridium difficile, status post treatment. PLAN: Observation PCU monitor creatinine response to IV fluids. Hold ACEI until creatinine at baseline. DVT prophylaxis, SCDs RE Recent GI bleed from SBO. Full code. Hospital Course 2nd Attack of C diff in 1 months Acute renal failure Secondary to gastrointestinal upset, possibly from Sutent-Chemotherapeutic agent. Dehydration with increase in BUN and Creatinine Clinically much better Continue IVF for now Renal function is much better will discharge home today Advised to drink more fluid HTN Going UP Will restart Lisinopril Controlled Ongoing Diarrhea History of Clostridium difficile, status post treatment. Stool for C Diff Colitis-POSITIVE Vancomycin started Renal cell cancer postsurgery with lung metastases, Ongoing chemotherapy. Hypertension, slightly elevated. Past tobacco abuse. DVT prophylaxis, SCDs Recent GI bleed. Full code. Total time spent on discharge = 35 minutes This includes examination of the patient, discharge planning, medication reconciliation, and communication with other providers. Discharge Instructions Date of Service Nov 26, 2016. Admission Reason for Admission: ARF Discharge Discharge Diagnosis / Problem: IRIS-Dehydration,C Diff Colitis (2nd in 1 month) ,Renal Cell Ca on Chemo Discharge Goals Goal(s): Prevent Disease Progression Activity Recommendations Activity Limitations: resume your previous activity . Instructions / Follow-Up Instructions / Follow-Up Dr Larkin on 11/29/16 at 12:45 PM Current Hospital Diet Patient's current hospital diet: AHA Diet (Heart Healthy) Discharge Diet Recommended Diet: AHA Diet (Heart Healthy) Fluid Restriction: None Pending Studies Studies pending at discharge: no Medical Emergencies . Who to Call and When: Medical Emergencies: If at any time you feel your situation is an emergency, please call 911 immediately. . Non-Emergent Contact Non-Emergency issues call your: Primary Care Provider . Past History Medical & Surgical History: (1) C. difficile colitis (2) ARF (acute renal failure) (3) Cancer of kidney (4) CAD (coronary artery disease) (5) Hypothyroid . "Provider Documentation" section prepared by Tamika Matute. . VTE Core Measure Inpt VTE Proph given/why not?: SCD's (H/O GI bleed) <Electronically signed by Tamika Matute M.D.> Additional Copies To Bonilla Larkin MD
== END 2016-11-26 12:40 | disposition home or self-care (01) ==
LOC: C.EDB 21:15 → EDBD 21:15 → C.4E 11-25 03:56 → ENRESERV 11-25 04:14
PROVIDERS: ADMIT Internal Medicine; ATTEND Internal Medicine
DX: N17.9 Acute kidney failure, unspecified (principal); A04.71 Enterocolitis due to Clostridium difficile, recurrent; I25.10 Atherosclerotic heart disease of native coronary artery without angina pectoris; I10 Essential (primary) hypertension; C64.9 Malignant neoplasm of unspecified kidney, except renal pelvis; C78.00 Secondary malignant neoplasm of unspecified lung; E03.9 Hypothyroidism, unspecified; D64.9 Anemia, unspecified; Z95.5 Presence of coronary angioplasty implant and graft; Z87.891 Personal history of nicotine dependence; Z79.02 Long term (current) use of antithrombotics/antiplatelets; Z79.899 Other long term (current) drug therapy

== ENCOUNTER → 2017-03-19 | Outpatient (CLI) | payer OTHER ==
[~2017-03-19] MED LIST changes: -AMLO-114 PO; +ATOR-22 PO; -ATOR-24 PO; -PRT40 PO; -THY/120 PO; +[UNRECOGNIZED DRUG - CODE] PO
--- NOTE | 2017-03-19 14:19 | DIAGNOSTIC IMAGING REPORT ---
PET/CT SKULL-THIGH CLINICAL HISTORY: 56 years-old Male presenting with KIDNEY CANCER, status post left nephrectomy, lung nodules, last treatment in February 24, 2017, restage metastatic kidney cancer. TECHNIQUE: PET/CT was performed from the base of the skull through the proximal thighs following the intravenous administration of 10.121 mCi of F18-FDG. Blood glucose level 95 mg/dL. The injection was performed at 11:10 AM and imaging began at [address] was performed for attenuation correction purposes and anatomic localization. COMPARISON: PET/CT from 09/13/2016. CT DOSE (mGy.cm): The estimated cumulative dose is 1343.42. FINDINGS: Head and neck: No FDG-avid mass in the visualized portion of the head or neck. No FDG avid or enlarged lymph nodes in the neck. Mucosal thickening in the left maxillary sinus. Chest: Numerous small solid pulmonary nodules noted in all 5 lobes. Several of these nodules have minimally increased in size by 1 to 2 mm, the largest in the right lower lobe measuring 6 mm (series 2 image 122), previously [address] is less to greater by motion artifact, which may be the cause for visualization of a greater number of lesions than on the prior. However, is difficult to exclude that the current exam shows new lesions. No axillary, supraclavicular, or mediastinal lymphadenopathy. Evaluation of the gopal limited without intravenous contrast. Atherosclerosis of the aorta. Coronary artery calcification. Normal heart size. No pericardial or pleural effusion. Airways patent. Abdomen and pelvis: Normal physiologic distribution of radiotracer in the gastrointestinal and genitourinary tracts. No FDG avid lymphadenopathy or mass lesion. Postsurgical changes of left nephrectomy. No suspicious or FDG avid soft tissue in the operative bed. Diverticulosis of the sigmoid colon. Fat-containing left inguinal hernia. Midline surgical scar in the ventral abdomen. Musculoskeletal: No FDG-avid or destructive osseous lesion. Focal degenerative changes at L5-S1. Left pars defect at L4 may be present. IMPRESSION: 1. Follow-up PET/CT demonstrates interval left nephrectomy. No FDG avid or suspicious soft tissue in the operative bed. No lymphadenopathy. 2. Redemonstration of numerous small solid pulmonary nodules throughout all 5 lobes most consistent with metastatic disease. Based on the size of these lesions, these are below the resolution of PET, and FDG avidity would not be expected. These are stable to minimal increase in size. Electronically signed by: Len Rizo M.D. 03/19/2017 2:18 PM Dictated Date/Time: 03/19/2017 1:58 PM
== END | disposition home or self-care (01) ==
LOC: C.PET 10:00
PROVIDERS: ATTEND Internal Medicine Hematology
DX: C64.9 Malignant neoplasm of unspecified kidney, except renal pelvis (principal); C78.00 Secondary malignant neoplasm of unspecified lung; Z90.5 Acquired absence of kidney

== ENCOUNTER 2019-07-23 12:45 | Inpatient (IN) ==
[2019-07-23] MEDS ORDERED: SODIUM CHLORIDE 0.9% 1000ML 2,000 ML IV ONE (13:24)
[2019-07-23] MEDS ORDERED: CEFEPIME 2,000 MG/20 ML VIAL IV STA (13:24)
[2019-07-23] MEDS ORDERED: ACETAMINOPHEN 500 MG TAB PO STA ×2 (13:25→17:30)
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
--- NOTE | 2019-07-23 13:36 | XRay Report ---
XR chest 1V portable CLINICAL HISTORY: SEPSIS dyspnea COMPARISON STUDY: 12/21/2017 FINDINGS: Prior median sternotomy. Chronic bilateral interstitial change. Baseline emphysematous change is present. No focal infiltrative process. Minimal atelectasis left base. Possible underlying nodular type change IMPRESSION: Chronic change. No acute process. Mild parenchymal nodularity similar as compared to the prior study. ACT 112: Negative or not required by law. The above report was generated using voice recognition software. It may contain grammatical, syntax or spelling errors. Electronically signed by: Suman Goncalves M.D. 07/23/2019 1:34 PM
[2019-07-23 13:55] LABS: iSTAT Creatinine 1.3 mg/dl (0.6-1.3); iSTAT Hemoglobin 13.6 g/dl (14.0-18.0); iSTAT Ionized Calcium 1.12 mmol/l (1.12-1.32); iSTAT Potassium 4.7 mmol/L (3.3-5.0)
[2019-07-23 13:56] LABS: Basophils # (auto) 0.02 K/uL (0-0.2); Basophils % (auto) 0.2 %; Eosinophils # (auto) 0.18 K/uL (0-0.5); Hematocrit (blood only) 39.3 % (42-52); Immature Granulocytes # (auto) 0.02 K/uL (0.00-0.02); Immature Granulocytes % (auto) 0.2 %; Lymphocytes # (auto) 1.11 K/uL (1.2-3.4); Lymphocytes % (auto) 12.6 %; Mean Corpuscular Hemoglobin 29.5 pg (25-34); Mean Corpuscular Hgb Conc 33.1 g/dL (32-36); Mean Corpuscular Volume 89.1 fL (80-100); Mean Platelet Volume 10.5 fL (7.4-10.4); Monocytes # (auto) 1.13 K/uL (0.11-0.59); Monocytes % (auto) 12.8 %; Neutrophils # (auto) 6.38 K/uL (1.4-6.5); Neutrophils % (auto) 72.2 %; Platelet Count 217 K/uL (130-400); RDW Coefficient of Variation 15.2 % (11.5-14.5); RDW Standard Deviation 49.3 fL (36.4-46.3); Red Blood Count 4.41 M/uL (4.7-6.1); White Blood Count 8.84 K/uL (4.8-10.8)
[2019-07-23 14:09] LABS: INR 1.1 (0.9-1.1); Partial Thromboplastin Time 28.8 Seconds (21.0-31.0); Prothrombin Time 11.9 Seconds (9.0-12.0)
[2019-07-23 14:14] LABS: Alanine Aminotransferase 25 U/L (12-78); Albumin Level 2.9 gm/dl (3.4-5.0); Aspartate Aminotransferase 23 U/L (15-37); BUN Creatinine Ratio 18.9 (10-20); Blood Urea Nitrogen 26 mg/dl (7-18); Calcium 8.6 mg/dl (8.5-10.1); Carbon Dioxide 23 mmol/L (21-32); Chloride 101 mmol/L (98-107); Creatinine Clr Calc Pharmacy 56.9 ml/min; Est GFR (African American) 64.1; Est GFR (Non-African American) 55.3; Glucose 103 mg/dl (70-99); Magnesium 1.9 mg/dl (1.8-2.4); Potassium 4.8 mmol/L (3.5-5.1); Sodium 133 mmol/L (136-145)
[2019-07-23 14:19] LABS: Albumin Globulin Ratio 0.6 (0.9-2); Alkaline Phosphatase 133 U/L (45-117); Bilirubin,Total 0.3 mg/dl (0.2-1); Globulin 4.6 gm/dl (2.5-4.0); Total Protein 7.5 gm/dl (6.4-8.2); Troponin I < 0.015 ng/ml (0-0.045)
--- NOTE | 2019-07-23 14:52 | History & Physical Report ---
Date of Service July 23, 2019 History of Present Illness Primary Care Provider: Bonilla Larkin MD Allergies Allergy/AdvReac Type Severity Reaction Status Date / Time banana Allergy Unknown ANAPHYLAXIS Verified 12/21/17 05:40 bee venom protein (honey bee) Allergy Unknown SWELLING Verified 12/21/17 05:40 ipilimumab [From Yervoy] AdvReac Unknown Chills/sob Unverified 07/23/19 13:53 nivolumab [From Opdivo] AdvReac Unknown chills/sob Unverified 07/23/19 13:53 Home Medications Home Medications Medication Instructions Recorded Confirmed Type Incruse Ellipta 1 inh INHALATION QAM 12/07/17 07/23/19 History acetaminophen 1,000 mg PO Q6H PRN 12/07/17 07/23/19 History amlodipine 1 tab PO QAM 12/07/17 07/23/19 History ascorbic acid (vitamin C) [Vitamin 500 mg PO QAM 12/07/17 07/23/19 History C] atorvastatin 20 mg PO QAM 12/07/17 07/23/19 History clopidogrel [Plavix] 75 mg PO QAM 12/07/17 07/23/19 History thyroid (pork) [DOUGHNUT DOUGH MIXER Thyroid] 120 mg PO [id number] 12/07/17 07/23/19 History thyroid (pork) [DOUGHNUT DOUGH MIXER Thyroid] 180 mg PO QAM 12/07/17 07/23/19 History multivitamin [Multiple Vitamins] 1 tab PO DAILY 07/23/19 07/23/19 History Past Med/Surg History Surgical History (Updated 12/13/17 @ 10:44 by Michelle Vanessa MD) History of arthroscopy left knee History of colonoscopy History of cystoscopy History of tonsillectomy as child Hx of cardiac cath cardiac cath done 2017 at [place] d/t shortness of breath. Had Nuclear stress test done which he failedand then proceded to Cardiac cath had 1 stent placed and then had second cath done with 2 stents. Hx of kidney removal left - d/t cancer Hx of tooth extraction Social History Preferred Language: Citizen Of [place] Communication Ability: Effective Visual Impairment: No Limitations Beliefs That Will Affect Care: None Current Living Situation: Spouse Feels Safe at Home: Yes Smoking Status: Never smoker Hx Alcohol Use: No Hx Substance Use: No Results & Data Results & Data ([facility]) Vital Signs (Past 12 Hours) Vital Signs Temp Pulse Resp BP Pulse Ox 07/23/19 13:01 39.4 C H 123 H 20 143/92 H 93
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
--- NOTE | 2019-07-23 15:34 | Electrocardiogram Report ---
Test Reason : Blood Pressure : / mmHG Vent. Rate : 111 BPM Atrial Rate : 111 BPM P-R Int : 122 ms QRS Dur : 080 ms QT Int : 324 ms P-R-T Axes : 072 026 074 degrees QTc Int : 440 ms Sinus tachycardia Otherwise normal ECG When compared with ECG of 24-NOV-2016 21:44, Vent. rate has increased BY 50 BPM Confirmed by Mike Crowell ([id number]) on 07/23/2019 3:33:53 PM Referred By: Jaskaran Pineda Confirmed By:Robert Crowell
[2019-07-23] MEDS ORDERED: ACETAMINOPHEN 325 MG TAB PO STA (16:16)
[2019-07-23] MEDS ORDERED: SODIUM CHLORIDE 0.9% 500 ML IV ONE (17:31)
[2019-07-23 17:44] LABS: Appearance Urine Clear (Clear); Bacteria Urine Automated Negative (Negative); Bilirubin Urine Negative (Negative); Blood Urine Negative (Negative); Color Urine Yellow; Epithelial Cell Urine Auto 0-5 /lpf (0-5); Glucose Urine UA Negative (Negative); Ketones Urine Negative (Negative); Leukocyte Esterase Urine Negative (Negative); Nitrite Urine Negative (Negative); Protein Urine 2+ (Negative); RBC Urine Automated 0-4 /hpf (0-4); Specific Gravity Urine 1.014 (1.000-1.030); Urobilinogen Urine Negative (Negative); WBC Urine Automated 0 /hpf (0-5)
[2019-07-23] MEDS ORDERED: ONDANSETRON INJ 2 MG/ML 2 ML VIAL IV PRN (20:01)
[2019-07-23] MEDS ORDERED: ALBUT/IPRATROP 3MG/0.5MG NEB 3 ML VIAL NEB PRN (20:01)
[2019-07-23] MEDS: SODIUM CHLORIDE 0.9% 1000ML 1,000 ML IV SCH (20:27)
[2019-07-23] MEDS: AMLODIPINE BESYLATE 5 MG TAB PO SCH (20:45)
[2019-07-23] MEDS: ACETAMINOPHEN 325 MG TAB PO PRN (20:45)
[2019-07-23] MEDS: ENOXAPARIN INJ 40 MG/0.4 ML SYR SQ SCH (20:46)
[2019-07-23] MEDS: CEFEPIME 2,000 MG in SYRINGE 7.5 ML IV SCH (21:18)
[2019-07-24] MEDS: ACETAMINOPHEN 325 MG TAB PO PRN ×4 (00:51→18:40)
[2019-07-24] MEDS: SODIUM CHLORIDE 0.9% 1000ML 1,000 ML IV SCH ×3 (04:44→20:15)
[2019-07-24] MEDS: CEFEPIME 2,000 MG in SYRINGE 7.5 ML IV SCH ×2 (05:52→14:19)
[2019-07-24 06:23] LABS: Basophils # (auto) 0.03 K/uL (0-0.2); Basophils % (auto) 0.4 %; Eosinophils # (auto) 0.17 K/uL (0-0.5); Eosinophils % (auto) 2.4 %; Hematocrit (blood only) 41.1 % (42-52); Hemoglobin 13.5 g/dL (14.0-18.0); Immature Granulocytes # (auto) 0.02 K/uL (0.00-0.02); Immature Granulocytes % (auto) 0.3 %; Lymphocytes # (auto) 0.98 K/uL (1.2-3.4); Lymphocytes % (auto) 14.1 %; Mean Corpuscular Hemoglobin 29.3 pg (25-34); Mean Corpuscular Hgb Conc 32.8 g/dL (32-36); Mean Corpuscular Volume 89.3 fL (80-100); Mean Platelet Volume 10.2 fL (7.4-10.4); Monocytes # (auto) 0.84 K/uL (0.11-0.59); Monocytes % (auto) 12.1 %; Neutrophils # (auto) 4.93 K/uL (1.4-6.5); Neutrophils % (auto) 70.7 %; Platelet Count 167 K/uL (130-400); RDW Coefficient of Variation 15.4 % (11.5-14.5); RDW Standard Deviation 50.3 fL (36.4-46.3); White Blood Count 6.97 K/uL (4.8-10.8)
[2019-07-24 07:07] LABS: BUN Creatinine Ratio 14.7 (10-20); Creatinine Clr Calc Pharmacy 58.5 ml/min; Est GFR (African American) 66.4; Est GFR (Non-African American) 57.3; Potassium 4.5 mmol/L (3.5-5.1)
[2019-07-24] MEDS: TOCOPHERYL, DL-ALPHA 100 UNITS CAP PO SCH (08:03)
[2019-07-24] MEDS: CLOPIDOGREL BISULFATE 75 MG TAB PO SCH (08:04)
[2019-07-24] MEDS: ASCORBIC ACID 500 MG TAB PO SCH (08:04)
[2019-07-24] MEDS: ATORVASTATIN 20 MG TAB PO SCH (08:04)
[2019-07-24] MEDS: MULTIVITAMIN TAB PO SCH (08:04)
--- NOTE | 2019-07-24 08:41 | Hospitalist Progress Note ---
Date of Service July 24, 2019 Assessment & Plan (1) Fever: (2) SIRS (systemic inflammatory response syndrome): Pt is 59 y/o M with PMH renal cell cancer with mets to lung s/p left nephrectomy in 2017 and chemo, CAD s/p stent in 2017, HTN, CKD III, COPD, hypothyroidism presented to ER with c/o fever. Last chemo on 07/18/2019 In ER T: 39.4, P: 123 down to 106, R: 20, BP: 143/92, 93% on RA WBC: 8, H/H: 13/39, Plt: 217, Lactate: 1.1 CXR: Chronic change. No acute process. Mild parenchymal nodularity similar as compared to the prior study. SIRS criteria without definite source--Likely due to Chemotherapy CXR:Chronic change. No acute process. Mild parenchymal nodularity similar as com pared to the prior study. UA: Not suggestive of UTI -In ER given 2L NSS, Cefepime, Tylenol 500mg po -blood cultures -no growth to date -Covid 19 PCR: NEGATIVE -Continue cefepime empirically -IVF -Patient reports some loose stools that are chronic, C. difficile and stool studies obtained -monitor CBC, BMP Hyponatremia - now resolved Likely due to dehydration from poor oral intake IV fluids Monitor (3) Cancer of kidney: H/O renal cell carcinoma with metastasis to lung. Currently following with [facility] Pt was on cabozantinib from 02/2018 to 07/12/2019. Had ipilimumab and nivolumab on 07/18/2019 (4) CKD (chronic kidney disease), stage III: Cr: 1.37. Baseline ~1.1-1.2 -Monitor renal functions -Avoid nephrotoxic agents when possible (5) HTN (hypertension): -Continue amlodipine (6) COPD (chronic obstructive pulmonary disease): -Duonebs prn (7) CAD (coronary artery disease): S/P Stent in 2017 -Continue atorvastatin, plavix. H/O orthostatic hypotension on metoprolol (8) Hypothyroid: -Continue STEEL ROD BUSTER thyroid DVT Prophylaxis -Lovenox SQ Full Code as per discussion with pt Follows with Dr Larkin for routine care Admission and Anticipated Discharge Date Admission Date: July 23, 2019 Subjective Patient is sitting up in bed, says that he feels much better. Reports that he was having terrible chills, tremors and fever, now he feels almost back to normal. He does complain of some mild nasal congestion, says that he has clear nasal drainage. Otherwise denies any chest pain, palpitations, abdominal pain, nausea or vomiting. Says he has some loose stools which are chronic. Patient's updated over the phone at the bedside. Review of Systems Review of Systems: All systems reviewed & are unremarkable except as noted in HPI & below Constitutional: no fever and no chills Respiratory: no cough and no dyspnea Cardiovascular: no chest pain and no palpitations Gastrointestinal: no abdominal pain, no nausea and no vomiting Physical Exam Physical Exam: Physical Exam: General Appearance:Moderately built and nourished, no apparent distress Head: normocephalic, Atraumatic Eyes: normal inspection, EOMI, PERRL Neck: supple, Trachea midline Respiratory/Chest: Normal breath sounds, CTA, No accessory muscle use Cardiovascular: S1, S2, No murmur, mild tachycardia Abdomen/GI:Soft, Non tender, Bowel sounds present Extremities/Musculoskelatal:normal inspection, no edema, moves extremities spontaneously and without difficulty Neurologic/Psych:AAOX3, grossly no focal neurological deficits, speech fluent, no facial symmetry, moves extremities spontaneously Skin: normal color, warm, well-healed surgical scar on abdomen, chest Results & Data Results & Data ([facility]) Vital Signs (Past 12 Hours) Vital Signs Temp Pulse Pulse Resp BP Pulse Ox 07/24/19 08:04 37.5 C 98 H 17 131/87 94 07/24/19 07:33 104 H 07/24/19 03:00 37.9 C H 109 H 20 109/70 94 07/24/19 00:19 122 H 07/23/19 23:35 38.7 C H 112 H 20 121/73 94 07/23/19 20:50 36.7 C Laboratory Results 07/24/19 07/24/19 07/23/19 Range/Units 05:52 05:52 17:10 WBC 6.97 (4.8-10.8) K/uL RBC 4.60 L (4.7-6.1) M/uL Hgb 13.5 L (14.0-18.0) g/dL POC Hgb (14.0-18.0) g/dl Hct 41.1 L (42-52) % POC Hct (42-52) % MCV 89.3 (80-100) fL MCH 29.3 (25-34) pg MCHC 32.8 (32-36) g/dL RDW Std Deviation 50.3 H (36.4-46.3) fL RDW Coeff of Erin 15.4 H (11.5-14.5) % Plt Count 167 (130-400) K/uL MPV 10.2 (7.4-10.4) fL Immature Gran % (Auto) 0.3 % Neut % (Auto) 70.7 % Lymph % (Auto) 14.1 % [place] % (Auto) 12.1 % Eos % (Auto) 2.4 % Baso % (Auto) 0.4 % Immature Gran # (Auto) 0.02 (0.00-0.02) K/uL Neut # (Auto) 4.93 (1.4-6.5) K/uL Lymph # (Auto) 0.98 L (1.2-3.4) K/uL [place] # (Auto) 0.84 H (0.11-0.59) K/uL Eos # (Auto) 0.17 (0-0.5) K/uL Baso # (Auto) 0.03 (0-0.2) K/uL PT (9.0-12.0) Seconds INR (0.9-1.1) APTT (21.0-31.0) Seconds PTT Ratio POC Sodium (135-144) mmol/L Sodium 138 (136-145) mmol/L POC Potassium (3.3-5.0) mmol/L Potassium 4.5 (3.5-5.1) mmol/L POC Chloride (101-112) mmol/L Chloride 108 H (98-107) mmol/L Carbon Dioxide 22 (21-32) mmol/L POC Total CO2 (24-31) mmol/L Anion Gap 8.0 (3-11) POC Anion Gap (16-25) mmol/L POC BUN (7-18) mg/dl BUN 20 H (7-18) mg/dl Creatinine 1.33 (0.6-1.4) mg/dl POC Creatinine (0.6-1.3) mg/dl Est Cr Clr Drug Dosing 58.5 ml/min Est GFR ( Amer) 66.4 Est GFR (Non-Af Amer) 57.3 BUN/Creatinine Ratio 14.7 (10-20) Glucose 100 H (70-99) mg/dl POC Glucose (other) (70-99) mg/dl Lactate (0.4-2.0) mmol/L Calcium 8.0 L (8.5-10.1) mg/dl POC Ioniz Calcium Olvin (1.12-1.32) mmol/l Magnesium (1.8-2.4) mg/dl Total Bilirubin (0.2-1) mg/dl AST (15-37) U/L ALT (12-78) U/L Alkaline Phosphatase (45-117) U/L Troponin I (0-0.045) ng/ml Total Protein (6.4-8.2) gm/dl Albumin (3.4-5.0) gm/dl Globulin (2.5-4.0) gm/dl Albumin/Globulin Ratio (0.9-2) Urine Color Yellow Urine Appearance Clear (Clear) Urine pH 5.0 (4.5-7.5) Ur Specific [place] 1.014 (1.000-1.030) Urine Protein 2+ H (Negative) Urine Glucose (UA) Negative (Negative) Urine Ketones Negative (Negative) Urine Blood Negative (Negative) Urine Nitrite Negative (Negative) Urine Bilirubin Negative (Negative) Urine Urobilinogen Negative (Negative) Ur Leukocyte Esterase Negative (Negative) Urine WBC (Auto) 0 (0-5) /hpf Urine RBC (Auto) 0-4 (0-4) /hpf U Hyaline Cast (Auto) 1-5 (0-5) /lpf U Epithel Cells (Auto) 0-5 (0-5) /lpf Urine Bacteria (Auto) Negative (Negative) COVID-19 PCR (Negative) 07/23/19 07/23/19 07/23/19 Range/Units 15:30 13:43 13:38 WBC (4.8-10.8) K/uL RBC (4.7-6.1) M/uL Hgb (14.0-18.0) g/dL POC Hgb 13.6 L (14.0-18.0) g/dl Hct (42-52) % POC Hct 40 L (42-52) % MCV (80-100) fL MCH (25-34) pg MCHC (32-36) g/dL RDW Std Deviation (36.4-46.3) fL RDW Coeff of Erin (11.5-14.5) % Plt Count (130-400) K/uL MPV (7.4-10.4) fL Immature Gran % (Auto) % Neut % (Auto) % Lymph % (Auto) % [place] % (Auto) % Eos % (Auto) % Baso % (Auto) % Immature Gran # (Auto) (0.00-0.02) K/uL Neut # (Auto) (1.4-6.5) K/uL Lymph # (Auto) (1.2-3.4) K/uL [place] # (Auto) (0.11-0.59) K/uL Eos # (Auto) (0-0.5) K/uL Baso # (Auto) (0-0.2) K/uL PT (9.0-12.0) Seconds INR (0.9-1.1) APTT (21.0-31.0) Seconds PTT Ratio POC Sodium 132 L (135-144) mmol/L Sodium (136-145) mmol/L POC Potassium 4.7 (3.3-5.0) mmol/L Potassium (3.5-5.1) mmol/L POC Chloride 99 L (101-112) mmol/L Chloride (98-107) mmol/L Carbon Dioxide (21-32) mmol/L POC Total CO2 22 L (24-31) mmol/L Anion Gap (3-11) POC Anion Gap 15.0 L (16-25) mmol/L POC BUN 27 H (7-18) mg/dl BUN (7-18) mg/dl Creatinine (0.6-1.4) mg/dl POC Creatinine 1.3 (0.6-1.3) mg/dl Est Cr Clr Drug Dosing ml/min Est GFR ( Amer) Est GFR (Non-Af Amer) BUN/Creatinine Ratio (10-20) Glucose (70-99) mg/dl POC Glucose (other) 108 H (70-99) mg/dl Lactate 1.1 (0.4-2.0) mmol/L Calcium (8.5-10.1) mg/dl POC Ioniz Calcium Olvin 1.12 (1.12-1.32) mmol/l Magnesium (1.8-2.4) mg/dl Total Bilirubin (0.2-1) mg/dl AST (15-37) U/L ALT (12-78) U/L Alkaline Phosphatase (45-117) U/L Troponin I (0-0.045) ng/ml Total Protein (6.4-8.2) gm/dl Albumin (3.4-5.0) gm/dl Globulin (2.5-4.0) gm/dl Albumin/Globulin Ratio (0.9-2) Urine Color Urine Appearance (Clear) Urine pH (4.5-7.5) Ur Specific [place] (1.000-1.030) Urine Protein (Negative) Urine Glucose (UA) (Negative) Urine Ketones (Negative) Urine Blood (Negative) Urine Nitrite (Negative) Urine Bilirubin (Negative) Urine Urobilinogen (Negative) Ur Leukocyte Esterase (Negative) Urine WBC (Auto) (0-5) /hpf Urine RBC (Auto) (0-4) /hpf U Hyaline Cast (Auto) (0-5) /lpf U Epithel Cells (Auto) (0-5) /lpf Urine Bacteria (Auto) (Negative) COVID-19 PCR NEGATIVE (Negative) 07/23/19 07/23/19 07/23/19 Range/Units 13:38 13:38 13:38 WBC 8.84 (4.8-10.8) K/uL RBC 4.41 L (4.7-6.1) M/uL Hgb 13.0 L (14.0-18.0) g/dL POC Hgb (14.0-18.0) g/dl Hct 39.3 L (42-52) % POC Hct (42-52) % MCV 89.1 (80-100) fL MCH 29.5 (25-34) pg MCHC 33.1 (32-36) g/dL RDW Std Deviation 49.3 H (36.4-46.3) fL RDW Coeff of Erin 15.2 H (11.5-14.5) % Plt Count 217 (130-400) K/uL MPV 10.5 H (7.4-10.4) fL Immature Gran % (Auto) 0.2 % Neut % (Auto) 72.2 % Lymph % (Auto) 12.6 % [place] % (Auto) 12.8 % Eos % (Auto) 2.0 % Baso % (Auto) 0.2 % Immature Gran # (Auto) 0.02 (0.00-0.02) K/uL Neut # (Auto) 6.38 (1.4-6.5) K/uL Lymph # (Auto) 1.11 L (1.2-3.4) K/uL [place] # (Auto) 1.13 H (0.11-0.59) K/uL Eos # (Auto) 0.18 (0-0.5) K/uL Baso # (Auto) 0.02 (0-0.2) K/uL PT 11.9 (9.0-12.0) Seconds INR 1.1 (0.9-1.1) APTT 28.8 (21.0-31.0) Seconds PTT Ratio 1.0 POC Sodium (135-144) mmol/L Sodium 133 L (136-145) mmol/L POC Potassium (3.3-5.0) mmol/L Potassium 4.8 (3.5-5.1) mmol/L POC Chloride (101-112) mmol/L Chloride 101 (98-107) mmol/L Carbon Dioxide 23 (21-32) mmol/L POC Total CO2 (24-31) mmol/L Anion Gap 9.0 (3-11) POC Anion Gap (16-25) mmol/L POC BUN (7-18) mg/dl BUN 26 H (7-18) mg/dl Creatinine 1.37 (0.6-1.4) mg/dl POC Creatinine (0.6-1.3) mg/dl Est Cr Clr Drug Dosing 56.9 ml/min Est GFR ( Amer) 64.1 Est GFR (Non-Af Amer) 55.3 BUN/Creatinine Ratio 18.9 (10-20) Glucose 103 H (70-99) mg/dl POC Glucose (other) (70-99) mg/dl Lactate (0.4-2.0) mmol/L Calcium 8.6 (8.5-10.1) mg/dl POC Ioniz Calcium Olvin (1.12-1.32) mmol/l Magnesium 1.9 (1.8-2.4) mg/dl Total Bilirubin 0.3 (0.2-1) mg/dl AST 23 (15-37) U/L ALT 25 (12-78) U/L Alkaline Phosphatase 133 H (45-117) U/L Troponin I < 0.015 (0-0.045) ng/ml Total Protein 7.5 (6.4-8.2) gm/dl Albumin 2.9 L (3.4-5.0) gm/dl Globulin 4.6 H (2.5-4.0) gm/dl Albumin/Globulin Ratio 0.6 L (0.9-2) Urine Color Urine Appearance (Clear) Urine pH (4.5-7.5) Ur Specific [place] (1.000-1.030) Urine Protein (Negative) Urine Glucose (UA) (Negative) Urine Ketones (Negative) Urine Blood (Negative) Urine Nitrite (Negative) Urine Bilirubin (Negative) Urine Urobilinogen (Negative) Ur Leukocyte Esterase (Negative) Urine WBC (Auto) (0-5) /hpf Urine RBC (Auto) (0-4) /hpf U Hyaline Cast (Auto) (0-5) /lpf U Epithel Cells (Auto) (0-5) /lpf Urine Bacteria (Auto) (Negative) COVID-19 PCR (Negative) Medications Administered Current Inpatient Medications Acetaminophen (Tylenol) 650 mg PO Q4H PRN PRN Reason: Pain or Fever Stop: 08/22/19 20:00 Last Admin: 07/24/19 05:52 Dose: 650 mg Documented by: Albuterol (Duoneb) 3 ml NEB QIDR PRN PRN Reason: Shortness Of Breath Or Wheezing Stop: 08/22/19 20:00 Amlodipine Besylate (Norvasc) 5 mg PO PM [facility] Stop: 08/22/19 20:59 Last Admin: 07/23/19 20:45 Dose: 5 mg Documented by: Ascorbic Acid (Vitamin C) 500 mg PO QAM LITO Stop: 08/23/19 08:59 Last Admin: 07/24/19 08:04 Dose: 500 mg Documented by: Atorvastatin Calcium (Lipitor) 20 mg PO QAM [facility]ITO Stop: 08/23/19 08:59 Last Admin: 07/24/19 08:04 Dose: 20 mg Documented by: Clopidogrel Bisulfate (Plavix) 75 mg PO QAM [facility] Stop: 08/23/19 08:59 Last Admin: 07/24/19 08:04 Dose: 75 mg Documented by: Enoxaparin Sodium (Lovenox) 40 mg SQ Q24H [facility] Stop: 08/22/19 20:59 Last Admin: 07/23/19 20:46 Dose: Not Given Documented by: Cefepime HCl 2,000 mg/ Syringe 20 mls @ 5.5 mls/min IV Q8H [facility]; Protocol Stop: 07/25/19 06:04 Last Admin: 07/24/19 05:52 Dose: 5.5 mls/min Documented by: Sodium Chloride (Nss 1000ml) 1,000 mls @ 125 mls/hr IV .Q8H [facility] Stop: 08/22/19 20:00 Last Admin: 07/24/19 04:44 Dose: 125 mls/hr Documented by: Multivitamins (Multivitamin Tab) 1 tab PO DAILY [facility] Stop: 08/23/19 08:59 Last Admin: 07/24/19 08:04 Dose: 1 tab Documented by: Ondansetron HCl (Zofran) 4 mg IV Q6H PRN PRN Reason: Nausea Stop: 08/22/19 20:00 Thyroid (Cardwell Thyroid) 120 mg PO [id number]@0900 [facility] Stop: 08/24/19 08:59 Thyroid (Cardwell Thyroid) 180 mg PO [id number]@0900 [facility] Stop: 08/23/19 08:59 Last Admin: 07/24/19 08:03 Dose: 180 mg Documented by: Vitamin E (Vitamin E) 600 units PO DAILY [facility] Stop: 08/23/19 08:59 Last Admin: 07/24/19 08:03 Dose: 600 units Documented by: (1) Cancer of kidney Laterality: unspecified laterality Qualified Code(s): C64.9 - Malignant neoplasm of unspecified kidney, except renal pelvis (2) HTN (hypertension) Hypertension type: unspecified Qualified Code(s): I10 - Essential (primary) hypertension
[2019-07-24] MEDS ORDERED: ARMOUR THYROID 30 MG TAB PO SCH (09:00)
[2019-07-24 17:07] LABS: Cdiff Antigen Positive; Cdiff Toxin A+B Negative Cdiff Toxin (Negative)
[2019-07-24] MEDS ORDERED: CEFEPIME 2,000 MG in SYRINGE 7.5 ML IV SCH (18:00)
[2019-07-24] MEDS: AMLODIPINE BESYLATE 5 MG TAB PO SCH (20:24)
[2019-07-24] MEDS: ENOXAPARIN INJ 40 MG/0.4 ML SYR SQ SCH (20:25)
[2019-07-24] MEDS ORDERED: ACETAMINOPHEN 325 MG TAB PO STA (20:35)
[2019-07-24] MEDS ORDERED: NORMOSOL-R 1,000 ML IV ONE (20:47)
--- NOTE | 2019-07-24 20:47 | Communication Note ---
Date of Service: July 24, 2019 Patient with fever spike and tachycardia as per RN. Patient upset. Chronic bronchitis symptoms as per admission notes. AP Recurrent fever Sepsis unknown source in immunocompromised patient ongoing Cefepime Rx. Add Doxycycline to regimen. Will relay to AM provider.
[2019-07-24] MEDS ORDERED: LORazepam 0.5 MG TAB PO PRN (20:52)
[2019-07-24 21:23] LABS: Magnesium 1.8 mg/dl (1.8-2.4); Thyroid Stimulating Hormone 0.308 uIu/ml (0.300-4.500)
[2019-07-24] MEDS ORDERED: DOXYCYCLINE HYCLATE 100 MG in DEXTROSE 5% 100 ML IV ONE (21:30)
[2019-07-24] MEDS ORDERED: MAGNESIUM SULFATE / D5W 1 GM/100 ML BAG IV ONE (21:55)
[2019-07-25] MEDS: ACETAMINOPHEN 325 MG TAB PO PRN ×2 (01:48→11:18)
[2019-07-25] MEDS: CEFEPIME 2,000 MG in SYRINGE 7.5 ML IV SCH ×2 (01:52→13:30)
[2019-07-25 07:01] LABS: Hematocrit (blood only) 39.1 % (42-52); Hemoglobin 12.9 g/dL (14.0-18.0); Mean Corpuscular Hemoglobin 29.1 pg (25-34); Mean Corpuscular Volume 88.3 fL (80-100); Mean Platelet Volume 10.7 fL (7.4-10.4); Platelet Count 119 K/uL (130-400); RDW Coefficient of Variation 15.4 % (11.5-14.5); RDW Standard Deviation 49.7 fL (36.4-46.3); Red Blood Count 4.43 M/uL (4.7-6.1); White Blood Count 5.85 K/uL (4.8-10.8)
[2019-07-25 07:34] LABS: BUN Creatinine Ratio 15.2 (10-20); Calcium 8.3 mg/dl (8.5-10.1); Creatinine Clr Calc Pharmacy 68.6 ml/min; Est GFR (African American) 80.9; Est GFR (Non-African American) 69.8; Phosphorus 2.2 mg/dl (2.5-4.9); Potassium 4.3 mmol/L (3.5-5.1)
[2019-07-25] MEDS: MULTIVITAMIN TAB PO SCH (08:02)
[2019-07-25] MEDS: ATORVASTATIN 20 MG TAB PO SCH (08:02)
[2019-07-25] MEDS: ASCORBIC ACID 500 MG TAB PO SCH (08:03)
[2019-07-25] MEDS: TOCOPHERYL, DL-ALPHA 100 UNITS CAP PO SCH (08:03)
[2019-07-25] MEDS: CLOPIDOGREL BISULFATE 75 MG TAB PO SCH (08:04)
[2019-07-25] MEDS ORDERED: ARMOUR THYROID 30 MG TAB PO SCH (09:00)
[2019-07-25] MEDS ORDERED: DOXYCYCLINE HYCLATE 100 MG CAP PO SCH (09:00)
[2019-07-25] MEDS ORDERED: SODIUM PHOSPHATE 3 MMOL/1 ML INFUSION IV STA (09:47)
[2019-07-25] MEDS ORDERED: SODIUM PHOSPHATE 9 MMOL in SODIUM CHLORIDE 0.9% 250 ML IV ONE (10:30)
--- NOTE | 2019-07-25 15:21 | Hospitalist Progress Note ---
Date of Service July 25, 2019 Assessment & Plan (1) Fever: (2) SIRS (systemic inflammatory response syndrome): Pt is 59 y/o M with PMH renal cell cancer with mets to lung s/p left nephrectomy in 2017 and chemo, CAD s/p stent in 2017, HTN, CKD III, COPD, hypothyroidism presented to ER with c/o fever. Last chemo on 07/18/2019 In ER T: 39.4, P: 123 down to 106, R: 20, BP: 143/92, 93% on RA WBC: 8, H/H: 13/39, Plt: 217, Lactate: 1.1 CXR: Chronic change. No acute process. Mild parenchymal nodularity similar as compared to the prior study. SIRS criteria without definite source--Likely due to Chemotherapy CXR:Chronic change. No acute process. Mild parenchymal nodularity similar as com pared to the prior study. UA: Not suggestive of UTI -In ER given 2L NSS, Cefepime, Tylenol 500mg po -blood cultures -no growth to date -Covid 19 PCR: NEGATIVE -Continued cefepime empirically -IVF -Patient reports some loose stools that are chronic, C. difficile and stool studies obtained -stool studies negative, C. difficile toxin negative Currently denies any loose stools. -monitor CBC, BMP Patient was febrile last night, doxycycline was added. Patient did not feel fever, denies any tremors or any symptoms. Patient says that he feels back to his normal, and is inquiring about going home. Agreed to discharge on Augmentin, until final blood cultures are available. At this moment, no source of infection identified. Fever likely due to chemotherapy. Close follow-up with PCP strongly recommended. Hyponatremia - now resolved Likely due to dehydration from poor oral intake IV fluids Monitor (3) Cancer of kidney: H/O renal cell carcinoma with metastasis to lung. Currently following with [facility] Pt was on cabozantinib from 02/2018 to 07/12/2019. Had ipilimumab and nivolumab on 07/18/2019 (4) CKD (chronic kidney disease), stage III: Cr: 1.37. Baseline ~1.1-1.2 Current creatinine improved to 1.13 -Monitor renal functions -Avoid nephrotoxic agents when possible (5) HTN (hypertension): -Continue amlodipine (6) COPD (chronic obstructive pulmonary disease): -Duonebs prn (7) CAD (coronary artery disease): S/P Stent in 2017 -Continue atorvastatin, plavix. 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 No clear source of infection. Stool studies negative. C. difficile toxin negative. Patient is sitting up in bed, in no acute distress, says that he feels well and he did not feel fever last night. He says that he was tremulous prior to coming to the hospital, and that has completely resolved. He is inquiring about going home. Patient currently denies any fever, chills, chest pain, shortness of breath, abdominal pain, nausea or vomiting. He also denies any headache, dizziness or lightheadedness. Review of Systems Review of Systems: All systems reviewed & are unremarkable except as noted in HPI & below Constitutional: no fever and no chills Respiratory: no cough and no dyspnea Cardiovascular: no chest pain and no dyspnea on exertion Gastrointestinal: no abdominal pain, no nausea and no vomiting Physical Exam Physical Exam: Physical Exam: General Appearance:Moderately built and nourished, no apparent distress Head: normocephalic, Atraumatic Eyes: normal inspection, EOMI, PERRL Neck: supple, Trachea midline Respiratory/Chest: Normal breath sounds, CTA, No accessory muscle use Cardiovascular: S1, S2, No murmur, mild tachycardia Abdomen/GI:Soft, Nontender, Bowel sounds present Extremities/Musculoskelatal:normal inspection, no edema, moves extremities spontaneously and without difficulty Neurologic/Psych:AAOX3, grossly no focal neurological deficits, speech fluent, no facial symmetry, moves extremities spontaneously Skin: normal color, warm, well-healed surgical scar on abdomen, chest Results & Data Results & Data ([facility]) Vital Signs (Past 12 Hours) Vital Signs Temp Pulse Pulse Resp BP BP Pulse Ox 07/25/19 13:41 111 H 154/110 H 07/25/19 11:14 37.2 C 109 H 18 164/111 H 95 07/25/19 08:08 37.2 C 91 H 17 122/84 92 07/25/19 04:46 37 C 99 H 20 125/86 94 07/25/19 03:49 98 H Laboratory Results 07/25/19 07/25/19 07/24/19 Range/Units 06:45 06:45 14:40 WBC 5.85 (4.8-10.8) K/uL RBC 4.43 L (4.7-6.1) M/uL Hgb 12.9 L (14.0-18.0) g/dL Hct 39.1 L (42-52) % MCV 88.3 (80-100) fL MCH 29.1 (25-34) pg MCHC 33.0 (32-36) g/dL RDW Std Deviation 49.7 H (36.4-46.3) fL RDW Coeff of Erin 15.4 H (11.5-14.5) % Plt Count 119 L (130-400) K/uL MPV 10.7 H (7.4-10.4) fL Sodium 138 (136-145) mmol/L Potassium 4.3 (3.5-5.1) mmol/L Chloride 108 H (98-107) mmol/L Carbon Dioxide 23 (21-32) mmol/L Anion Gap 7.0 (3-11) BUN 17 (7-18) mg/dl Creatinine 1.13 (0.6-1.4) mg/dl Est Cr Clr Drug Dosing 68.6 ml/min Est GFR ( Amer) 80.9 Est GFR (Non-Af Amer) 69.8 BUN/Creatinine Ratio 15.2 (10-20) Glucose 101 H (70-99) mg/dl Calcium 8.3 L (8.5-10.1) mg/dl Phosphorus 2.2 L (2.5-4.9) mg/dl Magnesium 2.0 (1.8-2.4) mg/dl TSH (0.300-4.500) uIu/ml Stl C. diff Tox B Gene Positive Cdiff Gene H (Neg) Stl C.difficile Tox A&B Negative Cdiff Toxin (Negative) 07/24/19 Range/Units 05:52 WBC (4.8-10.8) K/uL RBC (4.7-6.1) M/uL Hgb (14.0-18.0) g/dL Hct (42-52) % MCV (80-100) fL MCH (25-34) pg MCHC (32-36) g/dL RDW Std Deviation (36.4-46.3) fL RDW Coeff of Erin (11.5-14.5) % Plt Count (130-400) K/uL MPV (7.4-10.4) fL Sodium (136-145) mmol/L Potassium (3.5-5.1) mmol/L Chloride (98-107) mmol/L Carbon Dioxide (21-32) mmol/L Anion Gap (3-11) BUN (7-18) mg/dl Creatinine (0.6-1.4) mg/dl Est Cr Clr Drug Dosing ml/min Est GFR ( Amer) Est GFR (Non-Af Amer) BUN/Creatinine Ratio (10-20) Glucose (70-99) mg/dl Calcium (8.5-10.1) mg/dl Phosphorus (2.5-4.9) mg/dl Magnesium 1.8 (1.8-2.4) mg/dl TSH 0.308 (0.300-4.500) uIu/ml Stl C. diff Tox B Gene (Neg) Stl C.difficile Tox A&B (Negative) Medications Administered Current Inpatient Medications Acetaminophen (Tylenol) 650 mg PO Q4H PRN PRN Reason: Pain or Fever Stop: 08/22/19 20:00 Last Admin: 07/25/19 11:18 Dose: 650 mg Documented by: Albuterol (Duoneb) 3 ml NEB QIDR PRN PRN Reason: Shortness Of Breath Or Wheezing Stop: 08/22/19 20:00 Amlodipine Besylate (Norvasc) 5 mg PO PM [facility] Stop: 08/22/19 20:59 Last Admin: 07/24/19 20:24 Dose: 5 mg Documented by: Ascorbic Acid (Vitamin C) [facility] Stop: 08/23/19 08:59 Last Admin: 07/25/19 08:03 Dose: 500 mg Documented by: Atorvastatin Calcium (Lipitor) 20 [facility] [place] Stop: 08/23/19 08:59 Last Admin: 07/25/19 08:02 Dose: 20 mg Documented by: Clopidogrel Bisulfate (Plavix) 75 [facility] [place] Stop: 08/23/19 08:59 Last Admin: 07/25/19 08:04 Dose: 75 mg Documented by: Doxycycline Hyclate (Vibramycin) 100 mg PO BID [facility] Stop: 08/01/19 08:59 Last Admin: 07/25/19 08:05 Dose: 100 mg Documented by: Enoxaparin Sodium (Lovenox) 40 mg SQ Q24H [facility] Stop: 08/22/19 20:59 Last Admin: 07/24/19 20:25 Dose: 40 mg Documented by: Cefepime HCl 2,000 mg/ Syringe 20 mls @ 5.5 mls/min IV Q8H [facility]; Protocol Stop: 07/30/19 21:59 Lorazepam (Ativan) 0.5 mg PO QID PRN PRN Reason: Anxiety Stop: 08/23/19 20:51 Last Admin: 07/24/19 22:34 Dose: 0.5 mg Documented by: Multivitamins (Multivitamin Tab) 1 tab PO DAILY [facility] Stop: 08/23/19 08:59 Last Admin: 07/25/19 08:02 Dose: 1 tab Documented by: Ondansetron HCl (Zofran) 4 mg IV Q6H PRN PRN Reason: Nausea Stop: 08/22/19 20:00 Thyroid ([place] Thyroid) 120 mg PO MoWeFrSa@0900 [facility] Stop: 08/24/19 08:59 Last Admin: 07/25/19 08:02 Dose: 120 mg Documented by: Thyroid ([place] Thyroid) 180 mg PO [email or web address]@0900 [facility] Stop: 08/23/19 08:59 Last Admin: 07/24/19 08:03 Dose: 180 mg Documented by: Vitamin E (Vitamin E) 600 units PO DAILY [facility] Stop: 08/23/19 08:59 Last Admin: 07/25/19 08:03 Dose: 600 units Documented by: (1) Cancer of kidney Laterality: unspecified laterality Qualified Code(s): C64.9 - Malignant neoplasm of unspecified kidney, except renal pelvis (2) HTN (hypertension) Hypertension type: unspecified Qualified Code(s): I10 - Essential (primary) hypertension
--- NOTE | 2019-07-25 16:09 | Discharge Summary ---
Date of Service July 25, 2019 Admission HPI Per Admitting Provider HPI per attending physician Attending Note: Patient is a 59-year-old male with history of left renal cell carcinoma with metastasis to lung, COPD, hypertension, hypothyroidism, CAD S/P stent, CKD III and other problems presents with history of fever, chills, "shakyness', dyspnea, decreased appetite, generalized weakness, chronic cough and chronic sinus congestion. Patient follows with [facility] [address] oncology. His last chemotherapy was last Sunday. He states having chronic cough secondary to COPD. Also states having chronic sinus congestion which is currently associated with mild headache. He denies any chest pain, and dyspnea is not associated with any aggravating or relieving factors. Denies any history of chest pain, palpitations, dizziness, pedal edema, wheezing, hemoptysis, nausea, vomiting, abdominal pain, blood in stools, diarrhea, dysuria, hematuria, recent travel, sick contact or exposure to COVID. His COVID screen is negative. Admission Exam Per Admitting Provider Physical Exam: Vitals signs as noted above General Appearance:Moderately built and nourished, no apparent distress Head: normocephalic, Atraumatic Eyes: normal inspection, EOMI, PERRL Neck: supple, Trachea midline Respiratory/Chest: Normal breath sounds, CTA, No accessory muscle use Cardiovascular: S1, S2, No murmur, Tachycardia Abdomen/GI:Soft, Non tender, Bowel sounds present Extremities/Musculoskelatal:normal inspection, no edema Neurologic/Psych:AAOX3, grossly no focal neurological deficits Skin: normal color, warm, well-healed surgical scar on abdomen, chest Principal Diagnosis Fever of unknown source, likely due to chemotherapy Discharge Exam General Appearance:Moderately built and nourished, no apparent distress Head: normocephalic, Atraumatic Eyes: normal inspection, EOMI, PERRL Neck: supple, Trachea midline Respiratory/Chest: Normal breath sounds, CTA, No accessory muscle use Cardiovascular: S1, S2, No murmur, mild tachycardia Abdomen/GI:Soft, Nontender, Bowel sounds present Extremities/Musculoskelatal:normal inspection, no edema, moves extremities spontaneously and without difficulty Neurologic/Psych:AAOX3, grossly no focal neurological deficits, speech fluent, no facial symmetry, moves extremities spontaneously Skin: normal color, warm, well-healed surgical scar on abdomen, chest Discharge Data Allergies Allergy/AdvReac Type Severity Reaction Status Date / Time banana Allergy Unknown ANAPHYLAXIS Verified 12/21/17 05:40 bee venom protein (honey bee) Allergy Unknown SWELLING Verified 12/21/17 05:40 ipilimumab [From [facility]] AdvReac Unknown Chills/sob Unverified 07/23/19 13:53 nivolumab [From Opdiv[facility]] AdvReac Unknown chills/sob Unverified 07/23/19 13:53 Consultations 07/23/19 14:16 ED Decision to Admit Stat 07/23/19 20:01 Consult Case Management - Discharge Planning Routine Hospital Course (1) Fever: (2) SIRS (systemic inflammatory response syndrome): Pt is 59 y/o M with PMH renal cell cancer with mets to lung s/p left nephrectomy in 2017 and chemo, CAD s/p stent in 2017, HTN, CKD III, COPD, hypothyroidism presented to ER with c/o fever. Last chemo on 07/18/2019 In ER T: 39.4, P: 123 down to 106, R: 20, BP: 143/92, 93% on RA WBC: 8, H/H: 13/39, Plt: 217, Lactate: 1.1 CXR: Chronic change. No acute process. Mild parenchymal nodularity similar as compared to the prior study. SIRS criteria without definite source--Likely due to Chemotherapy CXR:Chronic change. No acute process. Mild parenchymal nodularity similar as compared to the prior study. UA: Not suggestive of UTI -In ER given 2L NSS, Cefepime, Tylenol 500mg po -blood cultures -no growth to date -Covid 19 PCR: NEGATIVE -Continued cefepime empirically -IVF -Patient reports some loose stools that are chronic, C. difficile and stool studies obtained -stool studies negative, C. difficile toxin negative Currently denies any loose stools. -monitor CBC, BMP Patient was febrile last night, doxycycline was added. Patient did not feel fever, denies any tremors or any symptoms. Patient says that he feels back to his normal, and is inquiring about going home. Agreed to discharge on Augmentin, until final blood cultures are available. At this moment, no source of infection identified. Fever likely due to chemotherapy. Close follow-up with PCP strongly recommended. Hyponatremia - now resolved Likely due to dehydration from poor oral intake IV fluids Monitor (3) Cancer of kidney: H/O renal cell carcinoma with metastasis to lung. Currently following with [facility] [address] Oncology Pt was on cabozantinib from 02/2018 to 07/12/2019. Had ipilimumab and nivolumab on 07/18/2019 (4) CKD (chronic kidney disease), stage III: Cr: 1.37. Baseline ~1.1-1.2 Current creatinine improved to 1.13 -Monitor renal functions -Avoid nephrotoxic agents when possible (5) HTN (hypertension): -Continue amlodipine (6) COPD (chronic obstructive pulmonary disease): -Duonebs prn (7) CAD (coronary artery disease): S/P Stent in 2017 -Continue atorvastatin, plavix. 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 with Dr Larkin for routine care Total Time Total Time Spent Total Time Spent (In Minutes): 35 Total Time Includes: Examination of the Patient, Discharge Planning and Medication Reconciliation Discharge Plan Discharge Items Patient Disposition: Home - Self-Care Reason For Visit: FEVER Discharge Diagnosis: Fever of unknown source, likely due to chemotherapy Activity: Per Instructions section Non-emergency contact: Primary Care Provider and Oncologist Call non-emergency contact if: you have any medication questions and your symptoms worsen Follow-up/Referrals: Bonilla Larkin MD [Primary Care Provider] - Diet: Regular Addtl Attending Provider Instructions: Follow-up with your primary care doctor within 1 week. Final results of blood cultures will be available when you see your primary care doctor. Take antibiotic as prescribed unless instructed otherwise by primary care doctor. For pain or fever you can take Tylenol 1000 mg 3 times a day, max daily dose is 3000 mg. If your symptoms worsen, such as you become febrile, tremulous, feeling ill, contact medical professional for further evaluation. 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 ; Ralph Hankins
[2019-07-25] MEDS ORDERED: CEFEPIME 2,000 MG in SYRINGE 7.5 ML IV SCH (22:00)
== END 2019-07-25 17:50 | disposition home or self-care (01) | DRG 864 ==
LOC: ED 12:45 → SUATTDRO 15:15 → 2W 15:15

== ENCOUNTER 2019-07-26 18:06 | Inpatient (IN) ==
[2019-07-26] MEDS ORDERED: LIDO/EPINEPHRINE/SOD BICARB 20 ML VIAL ONE (19:20)
--- NOTE | 2019-07-26 19:31 | XRay Report ---
XR chest 1V portable CLINICAL HISTORY: SEPSIS dyspnea COMPARISON STUDY: 07/23/2019 FINDINGS: Unchanging nodular density right pulmonary apex. Minimal chronic interstitial change. No superimposed infiltrate. Prior median sternotomy. IMPRESSION: 1. No acute process. 2. Chronic and postoperative change. 3. Unchanged nodular density right pulmonary apex. ACT 112: Negative or not required by law. The above report was generated using voice recognition software. It may contain grammatical, syntax or spelling errors. Electronically signed by: Suman Goncalves M.D. 07/26/2019 7:30 PM
[2019-07-26] MEDS ORDERED: KETOROLAC 30 MG/ML VIAL IV ONE (19:51)
[2019-07-26] MEDS ORDERED: DiphenhydrAMINE HCL 50 MG/ML VIAL IV STA (19:51)
[2019-07-26] MEDS ORDERED: PROCHLORPERAZINE 2 ML IV ONE (19:51)
[2019-07-26] MEDS ORDERED: SODIUM CHLORIDE 0.9% 1000ML 1,000 ML IV ONE (19:52)
[2019-07-26] MEDS ORDERED: MAGNESIUM SULFATE / D5W 1 GM/100 ML BAG IV STA (19:52)
[2019-07-26 20:13] LABS: INR 1.2 (0.9-1.1); Partial Thromboplastin Ratio 1.2; Partial Thromboplastin Time 33.9 Seconds (21.0-31.0); Prothrombin Time 12.3 Seconds (9.0-12.0)
[2019-07-26 20:20] LABS: Alanine Aminotransferase 59 U/L (12-78); Albumin Level 2.8 gm/dl (3.4-5.0); Aspartate Aminotransferase 66 U/L (15-37); Blood Urea Nitrogen 19 mg/dl (7-18); Calcium 8.8 mg/dl (8.5-10.1); Carbon Dioxide 22 mmol/L (21-32); Chloride 102 mmol/L (98-107); Creatinine Clr Calc Pharmacy 71.3 ml/min; Est GFR (African American) 82.6; Est GFR (Non-African American) 71.3; Glucose 102 mg/dl (70-99); Magnesium 1.8 mg/dl (1.8-2.4); Potassium 4.1 mmol/L (3.5-5.1); Sodium 132 mmol/L (136-145)
[2019-07-26 20:24] LABS: Albumin Globulin Ratio 0.6 (0.9-2); Alkaline Phosphatase 153 U/L (45-117); Bilirubin,Total 0.6 mg/dl (0.2-1); Ferritin 868.3 ng/ml (8-388); Globulin 4.9 gm/dl (2.5-4.0); Total Protein 7.7 gm/dl (6.4-8.2); Troponin I < 0.015 ng/ml (0-0.045)
[2019-07-26 20:38] LABS: Basophils # (auto) 0.04 K/uL (0-0.2); Basophils % (auto) 0.4 %; Eosinophils # (auto) 0.14 K/uL (0-0.5); Eosinophils % (auto) 1.6 %; Giant Platelets 1+; Hematocrit (blood only) 41.5 % (42-52); Hemoglobin 13.7 g/dL (14.0-18.0); Immature Granulocytes # (auto) 0.02 K/uL (0.00-0.02); Immature Granulocytes % (auto) 0.2 %; Lymphocytes # (auto) 1.37 K/uL (1.2-3.4); Lymphocytes % (auto) 15.3 %; Mean Corpuscular Hemoglobin 28.6 pg (25-34); Mean Corpuscular Volume 86.6 fL (80-100); Mean Platelet Volume 12.5 fL (7.4-10.4); Monocytes # (auto) 0.95 K/uL (0.11-0.59); Monocytes % (auto) 10.6 %; Neutrophils # (auto) 6.43 K/uL (1.4-6.5); Neutrophils % (auto) 71.9 %; Platelet Count 108 K/uL (130-400); Platelet Estimate Decreased (Normal); Red Blood Count 4.79 M/uL (4.7-6.1); White Blood Count 8.95 K/uL (4.8-10.8)
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
[2019-07-26] MEDS ORDERED: PIPERACILL/TAZOBAC CONSULT ACTIVE PRN (21:13)
[2019-07-26] MEDS ORDERED: PIPERACILLIN/TAZOBACTAM 4.5 GM/120 ML BAG IV ONE (21:13)
[2019-07-26 22:12] LABS: Appearance Urine Clear (Clear); Bacteria Urine Automated Negative (Negative); Bilirubin Urine Negative (Negative); Blood Urine Negative (Negative); Color Urine Yellow; Glucose Urine UA Negative (Negative); Ketones Urine Trace (Negative); Leukocyte Esterase Urine Negative (Negative); Nitrite Urine Negative (Negative); Protein Urine 2+ (Negative); Specific Gravity Urine 1.016 (1.000-1.030); Urobilinogen Urine Negative (Negative); pH Urine 5.5 (4.5-7.5)
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
[2019-07-27] MEDS ORDERED: POLYETHYLENE (MIRALAX) 17 GM PACK PO PRN (01:02)
[2019-07-27] MEDS ORDERED: ONDANSETRON INJ 2 MG/ML 2 ML VIAL IV PRN (01:02)
[2019-07-27] MEDS ORDERED: ALBUT/IPRATROP 3MG/0.5MG NEB 3 ML VIAL NEB PRN (01:02)
[2019-07-27] MEDS: SODIUM CHLORIDE 0.9% 1000ML 1,000 ML IV SCH ×3 (01:16→18:04)
[2019-07-27] MEDS ORDERED: DAPTOMYCIN CONSULT ACTIVE PRN (01:26)
[2019-07-27] MEDS: ACETAMINOPHEN 325 MG TAB PO PRN ×5 (01:41→21:25)
[2019-07-27] MEDS: DAPTOmycin 400 MG in SYRINGE 0 ML IV SCH (01:58)
[2019-07-27] MEDS: PIPERACILLIN/TAZOBACTAM 3.375 GM in DEXTROSE 5% 100 ML IV SCH ×3 (02:00→18:05)
--- NOTE | 2019-07-27 06:35 | CT Scan Report ---
CT head/brain wo con CT DOSE: 614.27 mGy.cm HISTORY: Mental status change Pt c/o sinusitis TECHNIQUE: Multiaxial CT images of the head were performed without the use of intravenous contrast. A dose lowering technique was utilized adhering to the principles of ALARA. Comparison: 11/25/2016 Findings: The paranasal sinuses and mastoid air cells are clear. The calvarium and skull base are int act. The ventricles and sulci are within normal limits. There is no mass, hematoma, midline shift, or acute infarct. Impression: No acute intracranial abnormality. ACT 112: Negative or not required by law. The above report was generated using voice recognition software. It may contain grammatical, syntax or spelling errors. Electronically signed by: Suman Goncalves M.D. 07/27/2019 6:34 AM
[2019-07-27 06:52] LABS: Basophils # (auto) 0.04 K/uL (0-0.2); Basophils % (auto) 0.5 %; Eosinophils # (auto) 0.17 K/uL (0-0.5); Hematocrit (blood only) 37.8 % (42-52); Hemoglobin 12.4 g/dL (14.0-18.0); Immature Granulocytes # (auto) 0.01 K/uL (0.00-0.02); Immature Granulocytes % (auto) 0.1 %; Lymphocytes # (auto) 1.58 K/uL (1.2-3.4); Lymphocytes % (auto) 18.9 %; Mean Corpuscular Hemoglobin 28.8 pg (25-34); Mean Corpuscular Volume 87.7 fL (80-100); Mean Platelet Volume 11.8 fL (7.4-10.4); Monocytes % (auto) 9.6 %; Neutrophils # (auto) 5.75 K/uL (1.4-6.5); Neutrophils % (auto) 68.9 %; Platelet Count 107 K/uL (130-400); RDW Coefficient of Variation 15.2 % (11.5-14.5); RDW Standard Deviation 49.4 fL (36.4-46.3); Red Blood Count 4.31 M/uL (4.7-6.1); White Blood Count 8.35 K/uL (4.8-10.8)
[2019-07-27] MEDS ORDERED: ARMOUR THYROID 30 MG TAB PO SCH (07:00)
[2019-07-27 07:04] LABS: Albumin Globulin Ratio 0.5 (0.9-2); Albumin Level 2.2 gm/dl (3.4-5.0); BUN Creatinine Ratio 18.2 (10-20); Bilirubin,Total 0.6 mg/dl (0.2-1); Calcium 7.9 mg/dl (8.5-10.1); Creatinine Clr Calc Pharmacy 71.6 ml/min; Est GFR (African American) 82.6; Est GFR (Non-African American) 71.3; Globulin 4.1 gm/dl (2.5-4.0); Total Protein 6.3 gm/dl (6.4-8.2)
[2019-07-27 07:21] LABS: Mean Corpuscular Hgb Conc 32.8 g/dL (32-36)
[2019-07-27 07:51] LABS: Magnesium 1.8 mg/dl (1.8-2.4)
[2019-07-27] MEDS: MULTIVITAMIN TAB PO SCH (08:20)
[2019-07-27] MEDS: TOCOPHERYL, DL-ALPHA 100 UNITS CAP PO SCH (08:20)
[2019-07-27] MEDS: CLOPIDOGREL BISULFATE 75 MG TAB PO SCH (08:21)
[2019-07-27] MEDS: ATORVASTATIN 20 MG TAB PO SCH (08:21)
[2019-07-27] MEDS: ASCORBIC ACID 500 MG TAB PO SCH (08:21)
[2019-07-27] MEDS: ENOXAPARIN INJ 40 MG/0.4 ML SYR SQ SCH (08:21)
--- NOTE | 2019-07-27 08:30 | Hospitalist Progress Note ---
Date of Service July 27, 2019 Assessment & Plan (1) Fever of unknown origin: SIRS Fever of unknown origin DD: Ipilimumab/nivolumab induced, Secondary to Cancer, TO R/O infection/inflammation CXR:No acute process. Chronic and postoperative change. Unchanged nodular density right pulmonary apex. COVID screen: Negative CT head : Negative for any acute intracranial process UA: Negative for bacteria, nitrite or leukoesterase Blood Cultures: NGTD Normal Lactic acid Elevated Procalcitonin, ESR, CRP Started on broad-spectrum antibiotics on admission --Zosyn, daptomycin, continue MRSA screen: Negative Started on IV fluids, cont. NS 125 cc/hr Consider rechecking stool studies if recurrence of diarrhea Stool studies obtained on July 23 are negative, C. difficile gene + but C. difficile toxin negative Obtain CT chest, abdomen and pelvis if persistence of fever Dopplers of lower extremities ordered, however there is no lower extremity edema or pain Consider discussing with infectious disease if needed Will update patient's oncologist ([facility] oncology, Dr. Pineda ) and discuss further Update: Discussed with [facility] oncology, Dr. 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 Pineda Received cabozantinib from 02/2018 to 07/12/2019. Received Ipilimumab and nivolumab on 07/18/2019 Thrombocytopenia Plt 107k Likely due to chemotherapy Monitor CBC No bleeding issues currently Hyponatremia Na 132 Started on IV fluids on admission yesterday, currently sodium 136 Monitor sodium levels Elevated lactate dehydrogenase LDH level 567 Likely due to cancer Elevated AST, alkaline phosphatase Monitor LFTs Currently denies any abdominal pain Obtain CT abdomen CKD III Creatinine at baseline Monitor renal function Avoid nephrotoxic agents as able Hypertension Continue amlodipine COPD No signs of exacerbation Duo nebs as needed CAD S/P Stent Continue home medications Hypothyroidism Continue [place] thyroid Disposition Plan to discharge home when medically stable Admission and Anticipated Discharge Date Admission Date: July 26, 2019 Subjective Patient recently discharged from hospital with antibiotic, Augmentin. Admitted with fever of unknown origin, likely secondary to his recent chemo treatment. Patient is currently lying in bed, very uncomfortable due to fever, T-max 39.3C today, tachycardic, in the low 100s. Patient continues to be febrile despite Tylenol, ice packs and, overall does not feel well. However denies any chest pain, shortness of breath, abdominal pain, nausea or vomiting. Also denies any headache, dizziness or lightheadedness. Will obtain CT chest abdomen pelvis, lower extremity Dopplers, and will contact [facility] oncology for further recommendations if fever is persistent, with no other source identified. Review of Systems Review of Systems: All systems reviewed & are unremarkable except as noted in HPI & below Constitutional: + fever and + chills Respiratory: no cough and no dyspnea Cardiovascular: no chest pain, no palpitations and no edema Gastrointestinal: no abdominal pain, no nausea and no vomiting Physical Exam Physical Exam: General Appearance:Moderately built and nourished, in no apparent distress Head: normocephalic, Atraumatic Eyes: normal inspection, EOMI, PERRL Neck: supple, Trachea midline Respiratory/Chest: Normal breath sounds, CTA, no wheezing, rhonchi or crackles noted no accessory muscle use Cardiovascular: S1, S2, No murmur, + tachycardia (100s) Abdomen/GI:Soft, Nontender to palpation, Bowel sounds present Extremities:normal inspection, no edema, moves extremities spontaneously and without difficulty Neurologic/Psych:AAOX3, answers questions appropriately, grossly no focal neurological deficits, speech fluent, no facial symmetry, moves extremities spontaneously Skin: normal color, warm, well-healed surgical scar on abdomen, and chest Results & Data Results & Data ([facility]) Vital Signs (Past 12 Hours) Vital Signs Temp Pulse Pulse Resp BP BP BP 07/27/19 07:25 38.8 C H 111 H 22 130/86 07/27/19 07:14 104 H 07/27/19 04:00 37.4 C 99 H 20 142/93 H 07/27/19 01:15 37.4 C 99 H 20 159/99 H 07/27/19 00:15 92 H 23 116/80 07/26/19 23:30 89 24 131/86 07/26/19 23:00 94 H 18 127/89 07/26/19 21:30 100 H 24 133/98 07/26/19 21:18 99 H 18 135/90 07/26/19 21:16 37.0 C Pulse Ox 07/27/19 07:25 93 07/27/19 07:14 07/27/19 04:00 95 07/27/19 01:15 93 07/27/19 00:15 95 07/26/19 23:30 94 07/26/19 23:00 92 07/26/19 21:30 94 07/26/19 21:18 95 07/26/19 21:16 Laboratory Results 07/27/19 07/27/19 07/27/19 Range/Units Unknown 07:14 06:36 WBC 8.35 (4.8-10.8) K/uL RBC 4.31 L (4.7-6.1) M/uL Hgb 12.4 L (14.0-18.0) g/dL Hct 37.8 L (42-52) % MCV 87.7 (80-100) fL MCH 28.8 (25-34) pg MCHC 32.8 (32-36) g/dL RDW Std Deviation 49.4 H (36.4-46.3) fL RDW Coeff of Erin 15.2 H (11.5-14.5) % Plt Count 107 L (130-400) K/uL MPV 11.8 H (7.4-10.4) fL Immature Gran % (Auto) 0.1 % Neut % (Auto) 68.9 % Lymph % (Auto) 18.9 % [place] % (Auto) 9.6 % Eos % (Auto) 2.0 % Baso % (Auto) 0.5 % Immature Gran # (Auto) 0.01 (0.00-0.02) K/uL Neut # (Auto) 5.75 (1.4-6.5) K/uL Lymph # (Auto) 1.58 (1.2-3.4) K/uL [place] # (Auto) 0.80 H (0.11-0.59) K/uL Eos # (Auto) 0.17 (0-0.5) K/uL Baso # (Auto) 0.04 (0-0.2) K/uL Absolute Nucleated RBC Nucleated RBC % (auto) Neutrophils % (Manual) Band Neutrophils % Lymphocytes % (Manual) Prolymphocyte % Reactive Lymphs % (Man) Monocytes % (Manual) Eosinophils % (Manual) Basophils % (Manual) Metamyelocytes % (Man) Myelocytes % (Man) Promyelocytes % (Man) Blast Cells % (Manual) Plasma Cell % (Manual) Other Cells % Nucleated RBC % Neutrophils # (Manual) Band Neutrophils # Total Absolute Neuts Lymphocytes # (Manual) Prolymphocyte # Reactive Lymphs # Total Abs Lymphocytes Monocytes # (Manual) Eosinophils # (Manual) Basophils # (Manual) Metamyelocytes # (Man) Myelocytes # (Manual) Promyelocytes # (Man) Blast Cells # (Man) Plasma Cell # (Manual) Other Cells # Nucleated RBCs # (Man) Hypersegmented Neuts Hyposegmented Neuts Hypogranular Neuts Large Granular Lymphs # Lrg Granular Lymphs Hairy Cells Smudge Cells Toxic Granulation Toxic Vacuolation Dohle Bodies Carlos Rods Platelet Estimate (Normal) Hypogranular Platelets Clumped Platelets Giant Platelets Platelet Satelliting RBC Morphology Polychromasia Hypochromasia Poikilocytosis Basophilic Stippling Anisocytosis Microcytosis Macrocytosis Spherocytes Pappenheimer Bodies Sickle Cells Target Cells Tear Drop Cells Ovalocytes Stomatocytes [place] Bodies Echinocytes Acanthocytes (Spur) Rouleaux RBC Agglutinates Schistocytes RBC Morph Comment ESR (0-14) mm/hr Sezary Cell PT (9.0-12.0) Seconds INR (0.9-1.1) APTT (21.0-31.0) Seconds PTT Ratio Sodium (136-145) mmol/L Potassium 4.0 (3.5-5.1) mmol/L Chloride (98-107) mmol/L Carbon Dioxide (21-32) mmol/L Anion Gap (3-11) BUN (7-18) mg/dl Creatinine (0.6-1.4) mg/dl Est Cr Clr Drug Dosing ml/min Est GFR ( Amer) Est GFR (Non-Af Amer) BUN/Creatinine Ratio (10-20) Glucose (70-99) mg/dl Lactate (0.4-2.0) mmol/L Calcium (8.5-10.1) mg/dl Phosphorus (2.5-4.9) mg/dl Magnesium 1.8 (1.8-2.4) mg/dl Ferritin (8-388) ng/ml Total Bilirubin (0.2-1) mg/dl AST 61 H (15-37) U/L ALT (12-78) U/L Alkaline Phosphatase (45-117) U/L Lactate Dehydrogenase (87-241) U/L Troponin I (0-0.045) ng/ml C-Reactive Protein (0-0.29) mg/dl Total Protein (6.4-8.2) gm/dl Albumin (3.4-5.0) gm/dl Globulin (2.5-4.0) gm/dl Albumin/Globulin Ratio (0.9-2) Procalcitonin (0-0.5) ng/ml Urine Color Urine Appearance (Clear) Urine pH (4.5-7.5) Ur Specific [place] (1.000-1.030) Urine Protein (Negative) Urine Glucose (UA) (Negative) Urine Ketones (Negative) Urine Blood (Negative) Urine Nitrite (Negative) Urine Bilirubin (Negative) Urine Urobilinogen (Negative) Ur Leukocyte Esterase (Negative) Urine WBC (Auto) (0-5) /hpf Urine RBC (Auto) (0-4) /hpf U Hyaline Cast (Auto) (0-5) /lpf U Epithel Cells (Auto) (0-5) /lpf Urine Bacteria (Auto) (Negative) Nasal Screen MRSA (PCR) Negative (Negative) COVID-19 PCR (Negative) SARS-CoV-2 RNA (RT-PCR) 07/27/19 07/27/19 07/27/19 Range/Units 05:40 05:40 05:40 WBC Cancelled (4.8-10.8) K/uL RBC Cancelled (4.7-6.1) M/uL Hgb Cancelled (14.0-18.0) g/dL Hct Cancelled (42-52) % MCV Cancelled (80-100) fL MCH Cancelled (25-34) pg MCHC Cancelled (32-36) g/dL RDW Std Deviation Cancelled (36.4-46.3) fL RDW Coeff of Erin Cancelled (11.5-14.5) % Plt Count Cancelled (130-400) K/uL MPV Cancelled (7.4-10.4) fL Immature Gran % (Auto) Cancelled % Neut % (Auto) Cancelled % Lymph % (Auto) Cancelled % [place] % (Auto) Cancelled % Eos % (Auto) Cancelled % Baso % (Auto) Cancelled % Immature Gran # (Auto) Cancelled (0.00-0.02) K/uL Neut # (Auto) Cancelled (1.4-6.5) K/uL Lymph # (Auto) Cancelled (1.2-3.4) K/uL [place] # (Auto) Cancelled (0.11-0.59) K/uL Eos # (Auto) Cancelled (0-0.5) K/uL Baso # (Auto) Cancelled (0-0.2) K/uL Absolute Nucleated RBC Cancelled Nucleated RBC % (auto) Cancelled Neutrophils % (Manual) Cancelled Band Neutrophils % Cancelled Lymphocytes % (Manual) Cancelled Prolymphocyte % Cancelled Reactive Lymphs % (Man) Cancelled Monocytes % (Manual) Cancelled Eosinophils % (Manual) Cancelled Basophils % (Manual) Cancelled Metamyelocytes % (Man) Cancelled Myelocytes % (Man) Cancelled Promyelocytes % (Man) Cancelled Blast Cells % (Manual) Cancelled Plasma Cell % (Manual) Cancelled Other Cells % Cancelled Nucleated RBC % Cancelled Neutrophils # (Manual) Cancelled Band Neutrophils # Cancelled Total Absolute Neuts Cancelled Lymphocytes # (Manual) Cancelled Prolymphocyte # Cancelled Reactive Lymphs # Cancelled Total Abs Lymphocytes Cancelled Monocytes # (Manual) Cancelled Eosinophils # (Manual) Cancelled Basophils # (Manual) Cancelled Metamyelocytes # (Man) Cancelled Myelocytes # (Manual) Cancelled Promyelocytes # (Man) Cancelled Blast Cells # (Man) Cancelled Plasma Cell # (Manual) Cancelled Other Cells # Cancelled Nucleated RBCs # (Man) Cancelled Hypersegmented Neuts Cancelled Hyposegmented Neuts Cancelled Hypogranular Neuts Cancelled Large Granular Lymphs Cancelled # Lrg Granular Lymphs Cancelled Hairy Cells Cancelled Smudge Cells Cancelled Toxic Granulation Cancelled Toxic Vacuolation Cancelled Dohle Bodies Cancelled Carlos Rods Cancelled Platelet Estimate Cancelled (Normal) Hypogranular Platelets Cancelled Clumped Platelets Cancelled Giant Platelets Cancelled Platelet Satelliting Cancelled RBC Morphology Cancelled Polychromasia Cancelled Hypochromasia Cancelled Poikilocytosis Cancelled Basophilic Stippling Cancelled Anisocytosis Cancelled Microcytosis Cancelled Macrocytosis Cancelled Spherocytes Cancelled Pappenheimer Bodies Cancelled Sickle Cells Cancelled Target Cells Cancelled Tear Drop Cells Cancelled Ovalocytes Cancelled Stomatocytes Cancelled [place] Bodies Cancelled Echinocytes Cancelled Acanthocytes (Spur) Cancelled Rouleaux Cancelled RBC Agglutinates Cancelled Schistocytes Cancelled RBC Morph Comment Cancelled ESR (0-14) mm/hr Sezary Cell Cancelled PT (9.0-12.0) Seconds INR (0.9-1.1) APTT (21.0-31.0) Seconds PTT Ratio Sodium 136 (136-145) mmol/L Potassium (3.5-5.1) mmol/L Chloride 109 H (98-107) mmol/L Carbon Dioxide 19 L (21-32) mmol/L Anion Gap 8.0 (3-11) BUN 20 H (7-18) mg/dl Creatinine 1.11 (0.6-1.4) mg/dl Est Cr Clr Drug Dosing 71.6 ml/min Est GFR ( Amer) 82.6 Est GFR (Non-Af Amer) 71.3 BUN/Creatinine Ratio 18.2 (10-20) Glucose 111 H (70-99) mg/dl Lactate (0.4-2.0) mmol/L Calcium 7.9 L (8.5-10.1) mg/dl Phosphorus 2.0 L (2.5-4.9) mg/dl Magnesium (1.8-2.4) mg/dl Ferritin (8-388) ng/ml Total Bilirubin 0.6 (0.2-1) mg/dl AST (15-37) U/L ALT 57 (12-78) U/L Alkaline Phosphatase 128 H (45-117) U/L Lactate Dehydrogenase (87-241) U/L Troponin I (0-0.045) ng/ml C-Reactive Protein (0-0.29) mg/dl Total Protein 6.3 L (6.4-8.2) gm/dl Albumin 2.2 L (3.4-5.0) gm/dl Globulin 4.1 H (2.5-4.0) gm/dl Albumin/Globulin Ratio 0.5 L (0.9-2) Procalcitonin 1.64 H (0-0.5) ng/ml Urine Color Urine Appearance (Clear) Urine pH (4.5-7.5) Ur Specific [place] (1.000-1.030) Urine Protein (Negative) Urine Glucose (UA) (Negative) Urine Ketones (Negative) Urine Blood (Negative) Urine Nitrite (Negative) Urine Bilirubin (Negative) Urine Urobilinogen (Negative) Ur Leukocyte Esterase (Negative) Urine WBC (Auto) (0-5) /hpf Urine RBC (Auto) (0-4) /hpf U Hyaline Cast (Auto) (0-5) /lpf U Epithel Cells (Auto) (0-5) /lpf Urine Bacteria (Auto) (Negative) Nasal Screen MRSA (PCR) (Negative) COVID-19 PCR (Negative) SARS-CoV-2 RNA (RT-PCR) 07/26/19 07/26/19 07/26/19 Range/Units 22:04 21:26 21:12 WBC (4.8-10.8) K/uL RBC (4.7-6.1) M/uL Hgb (14.0-18.0) g/dL Hct (42-52) % MCV (80-100) fL MCH (25-34) pg MCHC (32-36) g/dL RDW Std Deviation (36.4-46.3) fL RDW Coeff of Erin (11.5-14.5) % Plt Count (130-400) K/uL MPV (7.4-10.4) fL Immature Gran % (Auto) % Neut % (Auto) % Lymph % (Auto) % [place] % (Auto) % Eos % (Auto) % Baso % (Auto) % Immature Gran # (Auto) (0.00-0.02) K/uL Neut # (Auto) (1.4-6.5) K/uL Lymph # (Auto) (1.2-3.4) K/uL [place] # (Auto) (0.11-0.59) K/uL Eos # (Auto) (0-0.5) K/uL Baso # (Auto) (0-0.2) K/uL Absolute Nucleated RBC Nucleated RBC % (auto) Neutrophils % (Manual) Band Neutrophils % Lymphocytes % (Manual) Prolymphocyte % Reactive Lymphs % (Man) Monocytes % (Manual) Eosinophils % (Manual) Basophils % (Manual) Metamyelocytes % (Man) Myelocytes % (Man) Promyelocytes % (Man) Blast Cells % (Manual) Plasma Cell % (Manual) Other Cells % Nucleated RBC % Neutrophils # (Manual) Band Neutrophils # Total Absolute Neuts Lymphocytes # (Manual) Prolymphocyte # Reactive Lymphs # Total Abs Lymphocytes Monocytes # (Manual) Eosinophils # (Manual) Basophils # (Manual) Metamyelocytes # (Man) Myelocytes # (Manual) Promyelocytes # (Man) Blast Cells # (Man) Plasma Cell # (Manual) Other Cells # Nucleated RBCs # (Man) Hypersegmented Neuts Hyposegmented Neuts Hypogranular Neuts Large Granular Lymphs # Lrg Granular Lymphs Hairy Cells Smudge Cells Toxic Granulation Toxic Vacuolation Dohle Bodies Carlos Rods Platelet Estimate (Normal) Hypogranular Platelets Clumped Platelets Giant Platelets Platelet Satelliting RBC Morphology Polychromasia Hypochromasia Poikilocytosis Basophilic Stippling Anisocytosis Microcytosis Macrocytosis Spherocytes Pappenheimer Bodies Sickle Cells Target Cells Tear Drop Cells Ovalocytes Stomatocytes [place] Bodies Echinocytes Acanthocytes (Spur) Rouleaux RBC Agglutinates Schistocytes RBC Morph Comment ESR (0-14) mm/hr Sezary Cell PT (9.0-12.0) Seconds INR (0.9-1.1) APTT (21.0-31.0) Seconds PTT Ratio Sodium (136-145) mmol/L Potassium (3.5-5.1) mmol/L Chloride (98-107) mmol/L Carbon Dioxide (21-32) mmol/L Anion Gap (3-11) BUN (7-18) mg/dl Creatinine (0.6-1.4) mg/dl Est Cr Clr Drug Dosing ml/min Est GFR ( Amer) Est GFR (Non-Af Amer) BUN/Creatinine Ratio (10-20) Glucose (70-99) mg/dl Lactate 0.7 (0.4-2.0) mmol/L Calcium (8.5-10.1) mg/dl Phosphorus (2.5-4.9) mg/dl Magnesium (1.8-2.4) mg/dl Ferritin (8-388) ng/ml Total Bilirubin (0.2-1) mg/dl AST (15-37) U/L ALT (12-78) U/L Alkaline Phosphatase (45-117) U/L Lactate Dehydrogenase (87-241) U/L Troponin I (0-0.045) ng/ml C-Reactive Protein (0-0.29) mg/dl Total Protein (6.4-8.2) gm/dl Albumin (3.4-5.0) gm/dl Globulin (2.5-4.0) gm/dl Albumin/Globulin Ratio (0.9-2) Procalcitonin (0-0.5) ng/ml Urine Color Yellow Urine Appearance Clear (Clear) Urine pH 5.5 (4.5-7.5) Ur Specific [place] 1.016 (1.000-1.030) Urine Protein 2+ H (Negative) Urine Glucose (UA) Negative (Negative) Urine Ketones Trace H (Negative) Urine Blood Negative (Negative) Urine Nitrite Negative (Negative) Urine Bilirubin Negative (Negative) Urine Urobilinogen Negative (Negative) Ur Leukocyte Esterase Negative (Negative) Urine WBC (Auto) 1-5 (0-5) /hpf Urine RBC (Auto) 5-10 H (0-4) /hpf U Hyaline Cast (Auto) 1-5 (0-5) /lpf U Epithel Cells (Auto) 10-20 H (0-5) /lpf Urine Bacteria (Auto) Negative (Negative) Nasal Screen MRSA (PCR) (Negative) COVID-19 PCR NEGATIVE (Negative) SARS-CoV-2 RNA (RT-PCR) 07/26/19 07/26/19 07/26/19 Range/Units 21:12 19:48 19:48 WBC (4.8-10.8) K/uL RBC (4.7-6.1) M/uL Hgb (14.0-18.0) g/dL Hct (42-52) % MCV (80-100) fL MCH (25-34) pg MCHC (32-36) g/dL RDW Std Deviation (36.4-46.3) fL RDW Coeff of Erin (11.5-14.5) % Plt Count (130-400) K/uL MPV (7.4-10.4) fL Immature Gran % (Auto) % Neut % (Auto) % Lymph % (Auto) % [place] % (Auto) % Eos % (Auto) % Baso % (Auto) % Immature Gran # (Auto) (0.00-0.02) K/uL Neut # (Auto) (1.4-6.5) K/uL Lymph # (Auto) (1.2-3.4) K/uL [place] # (Auto) (0.11-0.59) K/uL Eos # (Auto) (0-0.5) K/uL Baso # (Auto) (0-0.2) K/uL Absolute Nucleated RBC Nucleated RBC % (auto) Neutrophils % (Manual) Band Neutrophils % Lymphocytes % (Manual) Prolymphocyte % Reactive Lymphs % (Man) Monocytes % (Manual) Eosinophils % (Manual) Basophils % (Manual) Metamyelocytes % (Man) Myelocytes % (Man) Promyelocytes % (Man) Blast Cells % (Manual) Plasma Cell % (Manual) Other Cells % Nucleated RBC % Neutrophils # (Manual) Band Neutrophils # Total Absolute Neuts Lymphocytes # (Manual) Prolymphocyte # Reactive Lymphs # Total Abs Lymphocytes Monocytes # (Manual) Eosinophils # (Manual) Basophils # (Manual) Metamyelocytes # (Man) Myelocytes # (Manual) Promyelocytes # (Man) Blast Cells # (Man) Plasma Cell # (Manual) Other Cells # Nucleated RBCs # (Man) Hypersegmented Neuts Hyposegmented Neuts Hypogranular Neuts Large Granular Lymphs # Lrg Granular Lymphs Hairy Cells Smudge Cells Toxic Granulation Toxic Vacuolation Dohle Bodies Carlos Rods Platelet Estimate (Normal) Hypogranular Platelets Clumped Platelets Giant Platelets Platelet Satelliting RBC Morphology Polychromasia Hypochromasia Poikilocytosis Basophilic Stippling Anisocytosis Microcytosis Macrocytosis Spherocytes Pappenheimer Bodies Sickle Cells Target Cells Tear Drop Cells Ovalocytes Stomatocytes [place] Bodies Echinocytes Acanthocytes (Spur) Rouleaux RBC Agglutinates Schistocytes RBC Morph Comment ESR (0-14) mm/hr Sezary Cell PT (9.0-12.0) Seconds INR (0.9-1.1) APTT (21.0-31.0) Seconds PTT Ratio Sodium (136-145) mmol/L Potassium (3.5-5.1) mmol/L Chloride (98-107) mmol/L Carbon Dioxide (21-32) mmol/L Anion Gap (3-11) BUN (7-18) mg/dl Creatinine (0.6-1.4) mg/dl Est Cr Clr Drug Dosing ml/min Est GFR ( Amer) Est GFR (Non-Af Amer) BUN/Creatinine Ratio (10-20) Glucose (70-99) mg/dl Lactate (0.4-2.0) mmol/L Calcium (8.5-10.1) mg/dl Phosphorus (2.5-4.9) mg/dl Magnesium (1.8-2.4) mg/dl Ferritin (8-388) ng/ml Total Bilirubin (0.2-1) mg/dl AST (15-37) U/L ALT (12-78) U/L Alkaline Phosphatase (45-117) U/L Lactate Dehydrogenase 567 H (87-241) U/L Troponin I (0-0.045) ng/ml C-Reactive Protein (0-0.29) mg/dl Total Protein (6.4-8.2) gm/dl Albumin (3.4-5.0) gm/dl Globulin (2.5-4.0) gm/dl Albumin/Globulin Ratio (0.9-2) Procalcitonin 1.77 H (0-0.5) ng/ml Urine Color Urine Appearance (Clear) Urine pH (4.5-7.5) Ur Specific [place] (1.000-1.030) Urine Protein (Negative) Urine Glucose (UA) (Negative) Urine Ketones (Negative) Urine Blood (Negative) Urine Nitrite (Negative) Urine Bilirubin (Negative) Urine Urobilinogen (Negative) Ur Leukocyte Esterase (Negative) Urine WBC (Auto) (0-5) /hpf Urine RBC (Auto) (0-4) /hpf U Hyaline Cast (Auto) (0-5) /lpf U Epithel Cells (Auto) (0-5) /lpf Urine Bacteria (Auto) (Negative) Nasal Screen MRSA (PCR) (Negative) COVID-19 PCR (Negative) SARS-CoV-2 RNA (RT-PCR) Cancelled 07/26/19 07/26/19 07/26/19 Range/Units 19:48 19:48 19:48 WBC (4.8-10.8) K/uL RBC (4.7-6.1) M/uL Hgb (14.0-18.0) g/dL Hct (42-52) % MCV (80-100) fL MCH (25-34) pg MCHC (32-36) g/dL RDW Std Deviation (36.4-46.3) fL RDW Coeff of Erin (11.5-14.5) % Plt Count (130-400) K/uL MPV (7.4-10.4) fL Immature Gran % (Auto) % Neut % (Auto) % Lymph % (Auto) % [place] % (Auto) % Eos % (Auto) % Baso % (Auto) % Immature Gran # (Auto) (0.00-0.02) K/uL Neut # (Auto) (1.4-6.5) K/uL Lymph # (Auto) (1.2-3.4) K/uL [place] # (Auto) (0.11-0.59) K/uL Eos # (Auto) (0-0.5) K/uL Baso # (Auto) (0-0.2) K/uL Absolute Nucleated RBC Nucleated RBC % (auto) Neutrophils % (Manual) Band Neutrophils % Lymphocytes % (Manual) Prolymphocyte % Reactive Lymphs % (Man) Monocytes % (Manual) Eosinophils % (Manual) Basophils % (Manual) Metamyelocytes % (Man) Myelocytes % (Man) Promyelocytes % (Man) Blast Cells % (Manual) Plasma Cell % (Manual) Other Cells % Nucleated RBC % Neutrophils # (Manual) Band Neutrophils # Total Absolute Neuts Lymphocytes # (Manual) Prolymphocyte # Reactive Lymphs # Total Abs Lymphocytes Monocytes # (Manual) Eosinophils # (Manual) Basophils # (Manual) Metamyelocytes # (Man) Myelocytes # (Manual) Promyelocytes # (Man) Blast Cells # (Man) Plasma Cell # (Manual) Other Cells # Nucleated RBCs # (Man) Hypersegmented Neuts Hyposegmented Neuts Hypogranular Neuts Large Granular Lymphs # Lrg Granular Lymphs Hairy Cells Smudge Cells Toxic Granulation Toxic Vacuolation Dohle Bodies Carlos Rods Platelet Estimate (Normal) Hypogranular Platelets Clumped Platelets Giant Platelets Platelet Satelliting RBC Morphology Polychromasia Hypochromasia Poikilocytosis Basophilic Stippling Anisocytosis Microcytosis Macrocytosis Spherocytes Pappenheimer Bodies Sickle Cells Target Cells Tear Drop Cells Ovalocytes Stomatocytes [place] Bodies Echinocytes Acanthocytes (Spur) Rouleaux RBC Agglutinates Schistocytes RBC Morph Comment ESR (0-14) mm/hr Sezary Cell PT 12.3 H (9.0-12.0) Seconds INR 1.2 H (0.9-1.1) APTT 33.9 H (21.0-31.0) Seconds PTT Ratio 1.2 Sodium 132 L (136-145) mmol/L Potassium 4.1 (3.5-5.1) mmol/L Chloride 102 (98-107) mmol/L Carbon Dioxide 22 (21-32) mmol/L Anion Gap 8.0 (3-11) BUN 19 H (7-18) mg/dl Creatinine 1.11 (0.6-1.4) mg/dl Est Cr Clr Drug Dosing 71.3 ml/min Est GFR ( Amer) 82.6 Est GFR (Non-Af Amer) 71.3 BUN/Creatinine Ratio 17.0 (10-20) Glucose 102 H (70-99) mg/dl Lactate 1.1 (0.4-2.0) mmol/L Calcium 8.8 (8.5-10.1) mg/dl Phosphorus (2.5-4.9) mg/dl Magnesium 1.8 (1.8-2.4) mg/dl Ferritin 868.3 H (8-388) ng/ml Total Bilirubin 0.6 (0.2-1) mg/dl AST 66 H (15-37) U/L ALT 59 (12-78) U/L Alkaline Phosphatase 153 H (45-117) U/L Lactate Dehydrogenase (87-241) U/L Troponin I < 0.015 (0-0.045) ng/ml C-Reactive Protein 12.60 H (0-0.29) mg/dl Total Protein 7.7 (6.4-8.2) gm/dl Albumin 2.8 L (3.4-5.0) gm/dl Globulin 4.9 H (2.5-4.0) gm/dl Albumin/Globulin Ratio 0.6 L (0.9-2) Procalcitonin (0-0.5) ng/ml Urine Color Urine Appearance (Clear) Urine pH (4.5-7.5) Ur Specific [place] (1.000-1.030) Urine Protein (Negative) Urine Glucose (UA) (Negative) Urine Ketones (Negative) Urine Blood (Negative) Urine Nitrite (Negative) Urine Bilirubin (Negative) Urine Urobilinogen (Negative) Ur Leukocyte Esterase (Negative) Urine WBC (Auto) (0-5) /hpf Urine RBC (Auto) (0-4) /hpf U Hyaline Cast (Auto) (0-5) /lpf U Epithel Cells (Auto) (0-5) /lpf Urine Bacteria (Auto) (Negative) Nasal Screen MRSA (PCR) (Negative) COVID-19 PCR (Negative) SARS-CoV-2 RNA (RT-PCR) 07/26/19 07/26/19 Range/Units 19:48 19:48 WBC 8.95 (4.8-10.8) K/uL RBC 4.79 (4.7-6.1) M/uL Hgb 13.7 L (14.0-18.0) g/dL Hct 41.5 L (42-52) % MCV 86.6 (80-100) fL MCH 28.6 (25-34) pg MCHC 33.0 (32-36) g/dL RDW Std Deviation 48.0 H (36.4-46.3) fL RDW Coeff of Erin 15.0 H (11.5-14.5) % Plt Count 108 L (130-400) K/uL MPV 12.5 H (7.4-10.4) fL Immature Gran % (Auto) 0.2 % Neut % (Auto) 71.9 % Lymph % (Auto) 15.3 % [place] % (Auto) 10.6 % Eos % (Auto) 1.6 % Baso % (Auto) 0.4 % Immature Gran # (Auto) 0.02 (0.00-0.02) K/uL Neut # (Auto) 6.43 (1.4-6.5) K/uL Lymph # (Auto) 1.37 (1.2-3.4) K/uL [place] # (Auto) 0.95 H (0.11-0.59) K/uL Eos # (Auto) 0.14 (0-0.5) K/uL Baso # (Auto) 0.04 (0-0.2) K/uL Absolute Nucleated RBC Nucleated RBC % (auto) Neutrophils % (Manual) Band Neutrophils % Lymphocytes % (Manual) Prolymphocyte % Reactive Lymphs % (Man) Monocytes % (Manual) Eosinophils % (Manual) Basophils % (Manual) Metamyelocytes % (Man) Myelocytes % (Man) Promyelocytes % (Man) Blast Cells % (Manual) Plasma Cell % (Manual) Other Cells % Nucleated RBC % Neutrophils # (Manual) Band Neutrophils # Total Absolute Neuts Lymphocytes # (Manual) Prolymphocyte # Reactive Lymphs # Total Abs Lymphocytes Monocytes # (Manual) Eosinophils # (Manual) Basophils # (Manual) Metamyelocytes # (Man) Myelocytes # (Manual) Promyelocytes # (Man) Blast Cells # (Man) Plasma Cell # (Manual) Other Cells # Nucleated RBCs # (Man) Hypersegmented Neuts Hyposegmented Neuts Hypogranular Neuts Large Granular Lymphs # Lrg Granular Lymphs Hairy Cells Smudge Cells Toxic Granulation Toxic Vacuolation Dohle Bodies Carlos Rods Platelet Estimate Decreased L (Normal) Hypogranular Platelets Clumped Platelets Giant Platelets 1+ Platelet Satelliting RBC Morphology Polychromasia Hypochromasia Poikilocytosis Basophilic Stippling Anisocytosis Microcytosis Macrocytosis Spherocytes Pappenheimer Bodies Sickle Cells Target Cells Tear Drop Cells Ovalocytes Stomatocytes [place] Bodies Echinocytes Acanthocytes (Spur) Rouleaux RBC Agglutinates Schistocytes RBC Morph Comment ESR 66 H (0-14) mm/hr Sezary Cell PT (9.0-12.0) Seconds INR (0.9-1.1) APTT (21.0-31.0) Seconds PTT Ratio Sodium (136-145) mmol/L Potassium (3.5-5.1) mmol/L Chloride (98-107) mmol/L Carbon Dioxide (21-32) mmol/L Anion Gap (3-11) BUN (7-18) mg/dl Creatinine (0.6-1.4) mg/dl Est Cr Clr Drug Dosing ml/min Est GFR ( Amer) Est GFR (Non-Af Amer) BUN/Creatinine Ratio (10-20) Glucose (70-99) mg/dl Lactate (0.4-2.0) mmol/L Calcium (8.5-10.1) mg/dl Phosphorus (2.5-4.9) mg/dl Magnesium (1.8-2.4) mg/dl Ferritin (8-388) ng/ml Total Bilirubin (0.2-1) mg/dl AST (15-37) U/L ALT (12-78) U/L Alkaline Phosphatase (45-117) U/L Lactate Dehydrogenase (87-241) U/L Troponin I (0-0.045) ng/ml C-Reactive Protein (0-0.29) mg/dl Total Protein (6.4-8.2) gm/dl Albumin (3.4-5.0) gm/dl Globulin (2.5-4.0) gm/dl Albumin/Globulin Ratio (0.9-2) Procalcitonin (0-0.5) ng/ml Urine Color Urine Appearance (Clear) Urine pH (4.5-7.5) Ur Specific [place] (1.000-1.030) Urine Protein (Negative) Urine Glucose (UA) (Negative) Urine Ketones (Negative) Urine Blood (Negative) Urine Nitrite (Negative) Urine Bilirubin (Negative) Urine Urobilinogen (Negative) Ur Leukocyte Esterase (Negative) Urine WBC (Auto) (0-5) /hpf Urine RBC (Auto) (0-4) /hpf U Hyaline Cast (Auto) (0-5) /lpf U Epithel Cells (Auto) (0-5) /lpf Urine Bacteria (Auto) (Negative) Nasal Screen MRSA (PCR) (Negative) COVID-19 PCR (Negative) SARS-CoV-2 RNA (RT-PCR) Medications Administered Current Inpatient Medications Acetaminophen (Tylenol) 650 mg PO Q4H PRN PRN Reason: Pain or Fever Stop: 08/26/19 01:01 Last Admin: 07/27/19 06:06 Dose: 650 mg Documented by: Albuterol (Duoneb) 3 ml NEB Q4R PRN PRN Reason: Shortness Of Breath Or Wheezing Stop: 08/26/19 01:01 Amlodipine Besylate (Norvasc) 5 mg PO PM [facility] Stop: 08/26/19 20:59 Ascorbic Acid (Vitamin C) 500 mg PO QAM [facility] Stop: 08/26/19 08:59 Last Admin: 07/27/19 08:21 Dose: 500 mg Documented by: Atorvastatin Calcium (Lipitor) 20 mg PO QAM [facility] Stop: 08/26/19 08:59 Last Admin: 07/27/19 08:21 Dose: 20 mg Documented by: Clopidogrel Bisulfate (Plavix) 75 mg PO QAM [facility] Stop: 08/26/19 08:59 Last Admin: 07/27/19 08:21 Dose: 75 mg Documented by: Enoxaparin Sodium (Lovenox) 40 mg SQ QAM [facility] Stop: 08/26/19 08:59 Last Admin: 07/27/19 08:21 Dose: 40 mg Documented by: Sodium Chloride (Nss 1000ml) 1,000 mls @ 125 mls/hr IV .Q8H [facility] Stop: 08/26/19 01:01 Last Admin: 07/27/19 01:16 Dose: 125 mls/hr Documented by: Daptomycin 400 mg/ Syringe 8 mls @ 4 mls/min IV Q24H [facility]; Protocol Stop: 08/10/19 01:59 Last Admin: 07/27/19 01:58 Dose: 4 mls/min Documented by: Piperacillin Sod/Tazobactam (Sod 3.375 gm/ Dextrose) 115 mls @ 28.75 mls/hr IV Q8H [facility]; Protocol Stop: 08/10/19 01:59 Last Infusion: 07/27/19 06:10 Dose: Infused Documented by: Miscellaneous Information (Consult) 1 ea N/A UD PRN PRN Reason: Consult Stop: 08/25/19 21:12 Miscellaneous Information (Consult) 1 ea N/A UD PRN PRN Reason: Consult Stop: 08/26/19 01:25 Multivitamins (Multivitamin Tab) 1 tab PO DAILY [facility] Stop: 08/26/19 08:59 Last Admin: 07/27/19 08:20 Dose: 1 tab Documented by: Ondansetron HCl (Zofran) 4 mg IV Q6H PRN PRN Reason: Nausea Stop: 08/26/19 01:01 Polyethylene Glycol (Miralax Powder Packet) 17 gm PO DAILY PRN PRN Reason: Constipation Stop: 08/26/19 01:01 Thyroid ([place] Thyroid) 120 mg PO MoWeFrSa@0700 [facility] Stop: 08/27/19 06:59 Thyroid ([place] Thyroid) 180 mg PO SuTuTh@0700 [facility] Stop: 08/26/19 06:59 Last Admin: 07/27/19 06:06 Dose: 180 mg Documented by: Vitamin E (Vitamin E) 600 units PO DAILY [facility] Stop: 08/26/19 08:59 Last Admin: 07/27/19 08:20 Dose: 600 units Documented by:
[2019-07-27] MEDS: POT PHOSPHATE MONOBASIC W/ SOD TAB PO SCH ×4 (09:00→20:16)
[2019-07-27] MEDS ORDERED: IOVERSOL 100ml IV PRN (12:56)
--- NOTE | 2019-07-27 13:24 | CT Scan Report ---
CT SCAN OF THE CHEST, ABDOMEN, AND PELVIS WITH IV CONTRAST CLINICAL HISTORY: Fever. Metastatic renal cell carcinoma. COMPARISON STUDY: CT scans of the chest dated 06/29/2017, 11/14/2017, and 08/31/2016. Abdominal CT annamaria ed 11/14/2017. TECHNIQUE: Following the IV administration of 94 of Optir[employer] 320, CT scan of the chest, abdomen, and p amanda was performed from the thoracic inlet to the proximal femora. Images are reviewed in the axial, sagittal, and coronal planes. IV contrast was administered without complication. A dose lowering te chnique was utilized adhering to the principles of ALARA. CT DOSE: 846.72 mGy.cm FINDINGS: CHEST: Thyroid: Imaged portions of the thyroid gland are normal in size and attenuation. Thoracic aorta: There is mild atherosclerotic calcification of the thoracic aorta, which is normal in caliber and demonstrates standard 3-vessel arch anatomy. No dissection is seen. Pulmonary vasculature: The pulmonary trunk is normal in caliber. There are no filling defects identif ied in the central pulmonary vessels to indicate pulmonary embolus. Note that this examination was no t protocoled for evaluation of the pulmonary arteries. Heart: The patient is status post midline sternotomy. The heart is normal in size and without pericar dial effusion. The coronary arteries are densely calcified. Lungs and pleural spaces: Moderate to advanced and edematous change is again noted. There is no airsp diony consolidation typical for pneumonia or pleural effusion. Findings a multifocal pulmonary and pleu ral-based metastatic disease have significantly progressed as compared to 06/29/2017. Mediastinum: Mediastinal lymphadenopathy has progressed as compared to 06/29/2017. A right paratrachea l node on image #107 measures 3.3 x 2.3 cm (previously measuring 1.7 x 1.2 cm). A prevascular node on image #118 measures 2.5 x 1.7 cm (previously measuring up to 1.0 cm). There are greater than 20 meta static lesions identified. Advertising Coordinator lesions are seen in the left upper lobe on image #65 measur ing 1.7 cm, the right upper lobe on image #103 measuring 1.6 cm, and in the left lower lobe on image #237 measuring 1.6 cm. Connie: Hilar adenopathy has progressed from previous. The largest node is in the right hilum seen on i mage #139, measuring 3.3 x 1.9 cm. Axillae: There is no axillary lymphadenopathy. Bony thorax: No lytic or blastic lesions are identified. ABDOMEN AND PELVIS: Liver: The contrast-enhanced liver is enlarged, measuring 19.1 cm in length. The liver demonstrates d iffusely diminished attenuation consistent with hepatic steatosis. There is no intra- or extrahepatic biliary ductal dilatation. The hepatic veins and portal veins are patent. There is evidence of multi focal hepatic metastatic metastatic disease, with more than 20 lesions identified. With a larger repr esentative lesions in the inferior right lobe on image #169 measures 2.1 cm. Direct comparison to óscar or examinations is difficult due to lack of IV contrast no prior studies. Gallbladder: The gallbladder is contracted. The mucosa appears slightly hyperemic. Spleen: Normal in size and attenuation. Pancreas: Unremarkable. Adrenal glands: The left adrenal gland appears hyperemic as compared to the right. No adrenal lesion is seen. Kidneys: The left kidney is surgically absent. There is no evidence of recurrent or residual soft tis malissa lesion in the left renal fossa. The right kidney is normal in size and without hydronephrosis. Th e right kidney enhances homogeneously. There is no evidence of enhancing cortical mass in the right k idney. Abdominal vasculature: The abdominal aorta is normal in course and caliber noting moderate atheroscle rotic calcification. Stomach and bowel: A small hiatal hernia is noted. The remainder of the stomach is normal in configur ation. There is mild wall thickening and edema with mucosal hyperemia suggested involving the proxima l duodenum with periduodenal inflammation. There is moderate colonic diverticulosis without CT eviden ce of acute diverticulitis. No bowel obstruction is seen. The appendix is normal as visualized. Peritoneum: There is no intraperitoneal free air or abdominal ascites. There is a fat-containing umbi lical hernia. Lymphadenopathy: Mildly enlarged portacaval nodes are nonspecific and measure up to 1.4 cm in short a xis. Pelvic viscera: The bladder, prostate, and seminal vesicles are normal as visualized. There are small bilateral fat-containing inguinal hernias. Skeletal structures: There is [id number] lumbosacral spondylosis. No lytic or blastic lesions a re seen. IMPRESSION: 1. Emphysema. 2. There is no airspace consolidation or pleural effusion. 3. Pulmonary metastatic disease, as well as metastatic mediastinal and hilar adenopathy have signific antly progressed as compared to the most recent comparison dated 06/29/2017. 4. There is evidence of multifocal hepatic metastatic disease. Recommend comparison to prior examinat ions is difficult due to differences in technique. 5. The proximal duodenum appears thick-walled and edematous with associated mucosal hyperemia. There is mild surrounding inflammatory change, and this could be seen in the setting of a nonspecific duode nitis or possibly ulcer disease. Clinical correlation will be required. This could be further assesse d with endoscopy if clinically warranted. 6. Status post left nephrectomy. 7. Hepatomegaly and mild steatosis. 8. Moderate colonic diverticulosis without CT evidence of acute diverticulitis. 9. There is asymmetric hyperemia of the left adrenal gland as compared to the right. This is of indet erminant etiology and significance. 10. Additional findings as above. ACT 112: Negative or not required by law. Electronically signed by: Vinnie Hernandez M.D. 07/27/2019 1:23 PM
--- NOTE | 2019-07-27 14:26 | Electrocardiogram Report ---
Test Reason : Blood Pressure : / mmHG Vent. Rate : 104 BPM Atrial Rate : 104 BPM P-R Int : 124 ms QRS Dur : 080 ms QT Int : 332 ms P-R-T Axes : 066 027 064 degrees QTc Int : 436 ms Poor data quality, interpretation may be adversely affected Sinus tachycardia Nonspecific ST abnormality Abnormal ECG When compared with ECG of 23-JUL-2019 13:39, No significant change was found Confirmed by Inderjit Wright ([id number]) on 07/27/2019 2:26:08 PM Referred By: Bonilla Larkin Confirmed By:Inderjit Wright
--- NOTE | 2019-07-27 14:31 | Electrocardiogram Report ---
Test Reason : Blood Pressure : / mmHG Vent. Rate : 109 BPM Atrial Rate : 109 BPM P-R Int : 130 ms QRS Dur : 072 ms QT Int : 324 ms P-R-T Axes : 083 045 066 degrees QTc Int : 436 ms Poor data quality, interpretation may be adversely affected Sinus tachycardia Septal infarct , age undetermined Abnormal ECG When compared with ECG of 26-JUL-2019 19:23, (unconfirmed) Septal infarct is now Present Confirmed by Inderjit Wright ([id number]) on 07/27/2019 2:31:31 PM Referred By: Bonilla Larkin Confirmed By:Inderjit Wright
[2019-07-27] MEDS: PANTOprazole 40 MG TAB PO SCH ×2 (18:39→22:31)
[2019-07-27] MEDS ORDERED: IBUPROFEN 200 MG TAB PO PRN (19:42)
--- NOTE | 2019-07-27 20:47 | Discharge Summary ---
Date of Service July 27, 2019 Admission HPI Per Admitting Provider Patient is a 59-year-old male with history of metastatic left renal cell carcinoma, COPD, hypertension, hypothyroidism, CAD S/P stent, CKD III, H/O C.diff and other medical problems who was recently discharged from [facility] after being treated for fever of unknown source, likely secondary to chemotherapy presents with persistence of fever since hospitalization. Fever resolved with cold compress and Tylenol use but has been recurrent since discharge. Patient states having chronic cough secondary to COPD which has been unchanged as per patient. He reports having sinus headache since past 1 week associated with some nasal congestion. Patient discussed with his PCP about persistence of fever despite being on oral Augmentin which he has been taking since last discharge. PCP recommended to be evaluated in ED for further management. Patient had his last immunotherapy 1 week ago with ipilimumab and nivolumab for renal cell carcinoma, follows with [facility] oncology. His COVID screen was negative on prior admission. His blood, urine culture, stool cultures from prior admission remain negative. No neutropenia noted on labs. UA is pending. Chest x-ray showed no acute process. His procalcitonin is elevated at 1.77. Lactate is within normal limits. His repeat COVID screen is currently pending. Denies any history of chest pain, SOB, dizziness, pedal edema, hemoptysis, head trauma, change in vision, nausea, vomiting, abdominal pain, diarrhea, dysuria, hematuria. Admission Exam Per Admitting Provider Physical Exam: Vitals signs as noted above General Appearance:Moderately built and nourished, no apparent distress Head: normocephalic, Atraumatic Eyes: normal inspection, EOMI, PERRL Neck: supple, Trachea midline Respiratory/Chest: Normal breath sounds, CTA, No accessory muscle use Cardiovascular: S1, S2, No murmur, +Tachycardia Abdomen/GI:Soft, Non tender, Bowel sounds present Extremities/Musculoskelatal:normal inspection, no edema Neurologic/Psych:AAOX3, grossly no focal neurological deficits Skin: normal color, warm, Surgical scar on chest Principal Diagnosis Persistent fever, due to unknown source, likely secondary to ipilimumab/nivolumab treatment Discharge Exam General Appearance:Moderately built and nourished, in no apparent distress Head: normocephalic, Atraumatic Eyes: normal inspection, EOMI, PERRL Neck: supple, Trachea midline Respiratory/Chest: Normal breath sounds, CTA, no wheezing, rhonchi or crackles noted no accessory muscle use Cardiovascular: S1, S2, No murmur, + tachycardia (100s) Abdomen/GI:Soft, Nontender to palpation, Bowel sounds present Extremities:normal inspection, no edema, moves extremities spontaneously and without difficulty Neurologic/Psych:AAOX3, answers questions appropriately, grossly no focal neurological deficits, speech fluent, no facial symmetry, moves extremities spontaneously Skin: normal color, warm, well-healed surgical scar on abdomen, and chest Discharge Data Allergies Allergy/AdvReac Type Severity Reaction Status Date / Time banana Allergy Unknown ANAPHYLAXIS Verified 07/26/19 21:08 bee venom protein (honey bee) Allergy Unknown SWELLING Verified 07/26/19 21:08 ipilimumab [From Yervoy] AdvReac Unknown Chills/sob Unverified 07/26/19 21:08 nivolumab [From Opdivo] AdvReac Unknown chills/sob Unverified 07/26/19 21:08 Consultations 07/26/19 21:02 ED Decision to Admit Stat 07/26/19 21:14 ED Decision to Admit Stat 07/27/19 13:49 Consult Gastroenterology Routine 07/27/19 20:22 Burn CD for patient Stat Ordered Studies 07/26/19 19:49 CT head/brain wo con Urgent Impression: No acute intracranial abnormality. 07/27/19 12:10 CT abd pelvis IV con only Urgent CT chest w con Urgent CHEST: Thyroid: Imaged portions of the thyroid gland are normal in size and attenuation. Thoracic aorta: There is mild atherosclerotic calcification of the thoracic aorta, which is normal in caliber and demonstrates standard 3-vessel arch anatomy. No dissection is seen. Pulmonary vasculature: The pulmonary trunk is normal in caliber. There are no filling defects identified in the central pulmonary vessels to indicate pulmonary embolus. Note that this examination was not protocoled for evaluation of the pulmonary arteries. Heart: The patient is status post midline sternotomy. The heart is normal in size and without pericardial effusion. The coronary arteries are densely calcified. Lungs and pleural spaces: Moderate to advanced and edematous change is again noted. There is no airspace consolidation typical for pneumonia or pleural effusion. Findings a multifocal pulmonary and pleural-based metastatic disease have significantly progressed as compared to 06/29/2017. Mediastinum: Mediastinal lymphadenopathy has progressed as compared to 06/29/2017. A right paratracheal node on image #107 measures 3.3 x 2.3 cm (previously measuring 1.7 x 1.2 cm). A prevascular node on image #118 measures 2.5 x 1.7 cm (previously measuring up to 1.0 cm). There are greater than 20 metastatic lesions identified. President [employer] Acquistion lesions are seen in the left upper lobe on image #65 measuring 1.7 cm, the right upper lobe on image #103 measuring 1.6 cm, and in the left lower lobe on image #237 measuring 1.6 cm. Connie: Hilar adenopathy has progressed from previous. The largest node is in the right hilum seen on image #139, measuring 3.3 x 1.9 cm. Axillae: There is no axillary lymphadenopathy. Bony thorax: No lytic or blastic lesions are identified. ABDOMEN AND PELVIS: Liver: The contrast-enhanced liver is enlarged, measuring 19.1 cm in length. The liver demonstrates diffusely diminished attenuation consistent with hepatic st eatosis. There is no intra- or extrahepatic biliary ductal dilatation. The hepatic veins and portal veins are patent. There is evidence of multifocal hepatic metastatic metastatic disease, with more than 20 lesions identified. With a larger commissary representative lesions in the inferior right lobe on image #169 measures 2.1 cm. Direct comparison to prior examinations is difficult due to lack of IV contrast no prior studies. Gallbladder: The gallbladder is contracted. The mucosa appears slightly hyperemic. Spleen: Normal in size and attenuation. Pancreas: Unremarkable. Adrenal glands: The left adrenal gland appears hyperemic as compared to the right. No adrenal lesion is seen. Kidneys: The left kidney is surgically absent. There is no evidence of recurrent or residual soft tissue lesion in the left renal fossa. The right kidney is normal in size and without hydronephrosis. The right kidney enhances homogeneously. There is no evidence of enhancing cortical mass in the right kidney. Abdominal vasculature: The abdominal aorta is normal in course and caliber noting moderate atherosclerotic calcification. Stomach and bowel: A small hiatal hernia is noted. The remainder of the stomach is normal in configuration. There is mild wall thickening and edema with mucosal hyperemia suggested involving the proximal duodenum with periduodenal inflammation. There is moderate colonic diverticulosis without CT evidence of acute diverticulitis. No bowel obstruction is seen. The appendix is normal as visualized. Peritoneum: There is no intraperitoneal free air or abdominal ascites. There is a fat-containing umbilical hernia. Lymphadenopathy: Mildly enlarged portacaval nodes are nonspecific and measure up to 1.4 cm in short axis. Pelvic viscera: The bladder, prostate, and seminal vesicles are normal as visualized. There are small bilateral fat-containing inguinal hernias. Skeletal structures: There is [id number] lumbosacral spondylosis. No lytic or blastic lesions are seen. IMPRESSION: 1. Emphysema. 2. There is no airspace consolidation or pleural effusion. 3. Pulmonary metastatic disease, as well as metastatic mediastinal and hilar adenopathy have significantly progressed as compared to the most recent comparison dated 06/29/2017. 4. There is evidence of multifocal hepatic metastatic disease. Recommend comparison to prior examinations is difficult due to differences in technique. 5. The proximal duodenum appears thick-walled and edematous with associated mucosal hyperemia. There is mild surrounding inflammatory change, and this could be seen in the setting of a nonspecific duodenitis or possibly ulcer disease. Clinical correlation will be required. This could be further assessed with endoscopy if clinically warranted. 6. Status post left nephrectomy. 7. Hepatomegaly and mild steatosis. 8. Moderate colonic diverticulosis without CT evidence of acute diverticulitis. 9. There is asymmetric hyperemia of the left adrenal gland as compared to the right. This is of indeterminant etiology and significance. 07/27/19 18:04 US venous doppler [facility] Urgent Hospital Course (1) Fever of unknown origin: SIRS Fever of unknown origin DD: Chemotherapy Induced, Secondary to Cancer, TO R/O infection/inflammation CXR:No acute process. Chronic and postoperative change. Unchanged nodular density right pulmonary apex. COVID screen: Negative CT head : Negative for any acute intracranial process UA: Negative for bacteria, nitrite or leukoesterase Blood Cultures: NGTD Normal Lactic acid Elevated Procalcitonin, ESR, CRP Started on broad-spectrum antibiotics on admission --Zosyn, daptomycin, continued MRSA screen: Negative Started on IV fluids Consider rechecking stool studies if recurrence of diarrhea Stool studies obtained on July 23 are negative, C. difficile gene + but C. difficile toxin negative CT chest, abdomen and pelvis obtained d/t persistence of fever Dopplers of lower extremities ordered, however there is no lower extremity edema or pain Consider discussing with infectious disease if needed CT ch/abd/pelvis IMPRESSION: 1. Emphysema. 2. There is no airspace consolidation or pleural effusion. 3. Pulmonary metastatic disease, as well as metastatic mediastinal and hilar adenopathy have significantly progressed as compared to the most recent comparison dated 06/29/2017. 4. There is evidence of multifocal hepatic metastatic disease. Recommend comparison to prior examinations is difficult due to differences in technique. 5. The proximal duodenum appears thick-walled and edematous with associated mucosal hyperemia. There is mild surrounding inflammatory change, and this could be seen in the setting of a nonspecific duodenitis or possibly ulcer disease. Clinical correlation will be required. This could be further assessed with endoscopy if clinically warranted. 6. Status post left nephrectomy. 7. Hepatomegaly and mild steatosis. 8. Moderate colonic diverticulosis without CT evidence of acute diverticulitis. 9. There is asymmetric hyperemia of the left adrenal gland as compared to the right. This is of indeterminant etiology and significance. 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 Pineda Received cabozantinib from 02/2018 to 07/12/2019. Received Ipilimumab and nivolumab on 07/18/2019 Discussed with [facility] oncology, Dr. Sanchez, fever may be due to ipilimumab/nivolumab treatment, and due to persistence of fever, patient should be evaluated at [facility] Thrombocytopenia Plt 107k Likely due to chemotherapy Monitor CBC No bleeding issues currently Hyponatremia Na 132 Started on IV fluids on admission yesterday, currently sodium 136 Monitor sodium levels Elevated lactate dehydrogenase LDH level 567 Likely due to cancer Elevated AST, alkaline phosphatase Monitor LFTs Currently denies any abdominal pain Imaging obtained, CT abdomen, see detailed results above Images significant for multiple metastatic lesions in liver CKD III Creatinine at baseline Monitor renal function Avoid nephrotoxic agents as able Patient received contrast today, for CT of chest/abdomen/pelvis IV fluids received prior to imaging, will continue IVF Hypertension Continue amlodipine COPD No signs of exacerbation Duo nebs as needed CAD S/P Stent Continue home medications Hypothyroidism 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 Pineda, [facility] oncology) Activity: Per Instructions section Non-emergency contact: Oncologist Call non-emergency contact if: you have any medication questions and your symptoms worsen Follow-up/Referrals: Bonilla Larkin MD [Primary Care Provider] - Diet: Regular Addtl Attending Provider Instructions: Despite treatment with broad-spectrum antibiotics, patient persistently febrile. Patient follows with Dr. Pineda with [facility] oncology, therefore oncology was contacted and case discussed with Dr. Sanchez. Patient likely has reaction to ipilimumab/nivolumab treatment, and recommends further evaluation and treatment at the [facility]. Patient will be transferred. Pending Studies at Discharge: No Stand-Alone Forms: My [facility] Skilled Items Patient informed of condition?: Yes DNR: No Discharge Level of Care: Other Communicable Disease: No Discharge Prognosis: Other Lines: Peripheral IV Urinary Catheter: No Medications and DC Order Prescriptions: New pantoprazole 40 mg Tablet,Delayed Release (Dr/Ec) 40 mg PO BID Qty: 30 RF: 0 Continued atorvastatin 20 mg Tablet 20 mg PO QAM RF: 0 clopidogrel [Plavix] 75 mg Tablet 75 mg PO QAM RF: 0 amlodipine 5 mg Tablet 1 tab PO PM RF: 0 acetaminophen 500 mg Tablet 1,000 mg PO Q6H PRN (Reason: Pain) RF: 0 ascorbic acid (vitamin C) [Vitamin C] 500 mg Tablet 500 mg PO QAM RF: 0 thyroid (pork) [SECURITY ASSOCIATE Thyroid] 120 mg Tablet 120 mg PO UD RF: 0 thyroid (pork) [SECURITY ASSOCIATE Thyroid] 120 mg Tablet 180 mg PO UD RF: 0 multivitamin [Multiple Vitamins] Tablet 1 tab PO DAILY RF: 0 vitamin E 600 unit Capsule 600 unit PO DAILY RF: 0 Discontinued amoxicillin-pot clavulanate [Augmentin] 875-125 mg tablet 1 tab PO Q12H 5 Days Qty: 10 RF: 0 Discharge Orders: Discharge Order (Routine); Ordered 07/27/19 Ordered By: Marlon Richardson Admission Data Admit Date/Time: 07/26/19 21:43 Attending Provider: Marlon Richardson Admit Provider: Ralph Hankins Primary Care Provider: Bonilla Larkin Other Providers: Shan Erwin ; Ralph Hankins ; Garrison De La Paz
[2019-07-27] MEDS ORDERED: AMLODIPINE BESYLATE 5 MG TAB PO SCH (21:00)
[2019-07-28] MEDS: ACETAMINOPHEN 325 MG TAB PO PRN ×3 (01:14→12:53)
[2019-07-28] MEDS: SODIUM CHLORIDE 0.9% 1000ML 1,000 ML IV SCH ×2 (02:10→09:42)
[2019-07-28] MEDS: DAPTOmycin 400 MG in SYRINGE 0 ML IV SCH (02:11)
[2019-07-28] MEDS: PIPERACILLIN/TAZOBACTAM 3.375 GM in DEXTROSE 5% 100 ML IV SCH ×2 (02:13→09:41)
[2019-07-28] MEDS ORDERED: ARMOUR THYROID 30 MG TAB PO SCH (07:00)
[2019-07-28] MEDS: PANTOprazole 40 MG TAB PO SCH (08:15)
[2019-07-28] MEDS: ASCORBIC ACID 500 MG TAB PO SCH (08:15)
[2019-07-28] MEDS: POT PHOSPHATE MONOBASIC W/ SOD TAB PO SCH ×2 (08:15→12:53)
[2019-07-28] MEDS: CLOPIDOGREL BISULFATE 75 MG TAB PO SCH (08:15)
[2019-07-28] MEDS: TOCOPHERYL, DL-ALPHA 100 UNITS CAP PO SCH (08:15)
[2019-07-28] MEDS: MULTIVITAMIN TAB PO SCH (08:16)
[2019-07-28] MEDS: ENOXAPARIN INJ 40 MG/0.4 ML SYR SQ SCH (08:17)
[2019-07-28] MEDS: ATORVASTATIN 20 MG TAB PO SCH (08:18)
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
--- NOTE | 2019-07-28 11:08 | Electrocardiogram Report ---
Test Reason : Blood Pressure : / mmHG Vent. Rate : 097 BPM Atrial Rate : 097 BPM P-R Int : 128 ms QRS Dur : 086 ms QT Int : 352 ms P-R-T Axes : 075 039 069 degrees QTc Int : 447 ms Normal sinus rhythm Normal ECG When compared with ECG of 27-JUL-2019 07:07, Criteria for Septal infarct are no longer Present Confirmed by Inderjit Wright ([id number]) on 07/28/2019 11:08:18 AM Referred By: Bonilla Larkin Confirmed By:Inderjit Wright
--- NOTE | 2019-07-28 11:47 | Electrocardiogram Report ---
Test Reason : Blood Pressure : / mmHG Vent. Rate : 102 BPM Atrial Rate : 102 BPM P-R Int : 126 ms QRS Dur : 076 ms QT Int : 354 ms P-R-T Axes : 081 061 079 degrees QTc Int : 461 ms Sinus tachycardia Nonspecific T wave abnormality Abnormal ECG When compared with ECG of 27-JUL-2019 15:46, (unconfirmed) No significant change was found Confirmed by Inderjit Wright ([id number]) on 07/28/2019 11:46:28 AM Referred By: Bonilla Larkin Confirmed By:Inderjit Wright
--- NOTE | 2019-08-04 07:40 | Coding Query ---
SEPSIS To promote full compliance with coding requirements relating to patient care, physician participation is requested in all cases of invoice coder uncertainty. Please assist us with the question(s) below: In responding to this query, please exercise your independent professional judgement. The fact that a question is asked does not imply that any particular answer is desired or expected. We appreciate your clarification on this issue. ____ ( )Bacteremia (Nonspecific laboratory finding of bacteria in the blood) Specify Organism ( ) Present on Admission ( ) Not present on admission ( ) Unable to clinically determine ( ) Septicemia (Systemic disease associated with the presence of pathogenic microorganisms in the blood): Specify Organism ( ) Present on Admission ( ) Not present on admission ( ) Unable to clinically determine ( ) Sepsis Specify Organism Specify Associated Condition/Diagnosis ( ) Present on Admission ( ) Not present on admission ( ) Unable to clinically determine ( ) Severe Sepsis (Sepsis associated with acute organ dysfunction) Specify Organism Specify Associated Condition/Diagnosis ( ) Present on Admission ( ) Not present on admission ( ) Unable to clinically determine ( ) Septic Shock (Severe sepsis with acute circulatory failure, unexplained by other causes) ( ) Present on Admission ( ) Not present on admission ( ) Unable to clinically determine ( ) Other, patient has: Not likely sepsis as no infectious source identified. However pt met SIRS criteria (likely d/t chemotherapy reaction) MTDD
== END 2019-07-28 15:00 | disposition short-term general hospital (02) | DRG 864 ==
LOC: ED 18:06 → 2W 21:43

== ENCOUNTER 2024-10-28 21:09 | Inpatient (IN) ==
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
[2024-10-28] MEDS: ALBUT/IPRATROP 3MG/0.5MG NEB 3 ML VIAL NEB STA (22:06)
[2024-10-28 22:51] LABS: Base Excess VBG 0.3 mEq/L; HCO3 VBG 25 mmol/L; Oxygen Saturation VBG 61.4 %; PCO2 VBG 42 mmHg (38-50); PO2 VBG 37 mmHg; pH VBG 7.39 (7.36-7.41)
[2024-10-28 23:02] LABS: Hematocrit (blood only) 46.2 % (42.0-52.0); Hemoglobin 15.9 g/dl (14.0-18.0); Mean Corpuscular Hemoglobin 31.0 pg (25.0-34.0); Mean Corpuscular Volume 90.1 fL (80.0-100.0); Platelet Count 233 K/uL (130-400); RDW Standard Deviation 43.6 fL (36.4-46.3); Red Blood Count 5.13 M/uL (4.70-6.10); White Blood Count 17.09 K/ul (4.8-10.8)
[2024-10-28 23:03] LABS: Appearance Urine Clear (Clear); Bacteria Urine Automated None Seen (None Seen); Cast Urine Automated 0-2 /lpf (0-2); Epithelial Cell Urine Auto 0-2 /hpf (0-2); Glucose Urine UA Negative (Negative); RBC Urine Automated 0-2 /hpf (0-2); WBC Urine Automated 0-5 /hpf (0-5)
[2024-10-28 23:20] LABS: Alanine Aminotransferase 19.0 U/L (7-52); Albumin Globulin Ratio 1.4 (0.9-2); Albumin Level 4.5 gm/dl (3.4-5.0); Alkaline Phosphatase 63.0 U/L (34-104); Anion Gap 9.0 (3-11); Bilirubin,Total 0.5 mg/dl (0.2-1.0); Blood Urea Nitrogen 21.0 mg/dl (6-23); Calcium 9.6 mg/dl (8.6-10.3); Carbon Dioxide 24.0 mmol/L (21-32); Chloride 103.0 mmol/L (98-107); Creatinine Clr Calc Pharmacy 69.2 ml/min; Globulin 3.3 gm/dl (2.5-4.0); Glucose 197.0 mg/dl (70-99(Fasting)); Potassium 4.7 mmol/L (3.5-5.1); Sodium 136.0 mmol/L (136-145); Total Protein 7.8 gm/dl (6.0-8.3)
[2024-10-28] MEDS: OPTIRAY 320 125ml IV ONE (23:31)
[2024-10-28 23:44] LABS: Immature Granulocytes # (auto) 0.07 K/uL (0.01-0.20); Immature Granulocytes % (auto) 0.4 %; RBC Morphology Unremarkable
--- NOTE | 2024-10-29 00:02 | XRay Report ---
Exam(s): XR CXR 1 VIEW EXAM: XR Chest, 1 View CLINICAL HISTORY: Reason for exam: Dyspnea. TECHNIQUE: Frontal view of the chest. COMPARISON: 07/26/2019 FINDINGS: Lungs: Prominent interstitial markings in the lung bases. Slightly increased on the left since previous. No consolidation. Pleural space: Unremarkable. No pneumothorax. Heart: The right coronary stent is visible. Mediastinum: Unremarkable. Normal mediastinal contour. Bones/joints: There are multiple sternal wires. The cardiac silhouette is upper normal in size, unchanged. Mild osteophytosis in the thoracic spine. No acute fracture. Upper abdomen: Unremarkable as visualized. No pneumoperitoneum under the diaphragm. IMPRESSION: 1. Prominent interstitial markings in the lung bases. Slightly increased on the left since previous. Possible small left basilar infiltrate or atelectasis. 2. There are multiple sternal wires. The cardiac silhouette is upper normal in size, unchanged. Electronically signed by: Chilo Todd MD 10/29/24 00:01 AM
--- NOTE | 2024-10-29 00:15 | CT Scan Report ---
Exam(s): CTA CHEST IV Amt: 118 cc opit 320 EXAM: CT Angiography Chest With Intravenous Contrast CLINICAL HISTORY: Reason for exam: SOB, 17k wbc, copd hx. ?Pneumonia on chest x-ray. TECHNIQUE: Axial computed tomographic angiography images of the chest with intravenous contrast. CTDI is 38.56 mGy and DLP is 923.43 mGy-cm. Automated exposure control was utilized for the study. A dose lowering technique was utilized adhering to the principles of ALARA. MIP reconstructed images were created and reviewed. COMPARISON: Chest x-ray from today and CT chest from 11/24/2023 FINDINGS: Pulmonary arteries: The pulmonary arterial tree is well opacified with contrast. No pulmonary embolism is identified. Aorta: The thoracic aorta is mildly calcified but nondilated. There is no aneurysm or dissection. Lungs: Lmyh-sx-trjmdsfe emphysematous changes throughout both lungs, greatest in the upper lobes bilaterally. There is increased reticular density in both lower lobes and costophrenic angles compared to previous suggesting superimposed pneumonia, less likely pulmonary edema. No mass. Pleural space: Unremarkable. No significant effusion. No pneumothorax. Heart: See below. Bones/joints: Previous sternotomy. The heart is mildly enlarged. Dcjasaks-yu-yludwj coronary calcification is present. No pericardial effusion. No acute fracture. No dislocation. Soft tissues: Unremarkable. Lymph nodes: Unremarkable. No enlarged lymph nodes. IMPRESSION: 1. Nbhb-ge-oxmhmkyi emphysematous changes throughout both lungs, greatest in the upper lobes bilaterally. There is increased reticular density in both lower lobes and costophrenic angles compared to previous suggesting superimposed pneumonia, less likely pulmonary edema. 2. Previous sternotomy. The heart is mildly enlarged. Moderate-to- severe coronary calcification is present. No pericardial effusion. 3. The thoracic aorta is mildly calcified but nondilated. There is no aneurysm or dissection. 4. The pulmonary arterial tree is well opacified with contrast. No pulmonary embolism is identified. 5. Consider enrolling the patient in a low-dose lung cancer screening program as emphysema is an independent risk factor for lung cancer. Electronically signed by: Chilo Todd MD 10/29/24 00:14 AM
--- NOTE | 2024-10-29 00:23 | Emergency Department Note ---
ED Visit Note I was consulted by the Advanced Practice Provider, Israel Godfrey PA-C. I performed a substantive portion of the visit. This includes aspects of: History: Patient is a 64-year-old male presenting with shortness of breath for the last week. He does not wear any supplemental oxygen at baseline. He has a history of asthma and COPD. He reports that he has been on a course of steroids for his symptoms. Denies any chest pain. Denies any fevers. MDM: Workup in the emergency department did show the patient to have a leukocytosis. However, he has been on steroids for a number of days. VBG unremarkable. Stable electrolytes. Normal troponin. EKG negative for any acute ischemic changes. Chest x-ray imaging negative for acute pneumonia. CT PE showed emphysematous changes. CT was noted to have increased reticular densities in both lower lobes and costophrenic angles concerning for potential superimposed pneumonia. Patient did desaturate into the upper 80s and was started on supplemental oxygen. He will be admitted to the hospitalist service for further evaluation and management. .
[2024-10-29] MEDS: PIPERACILLIN/TAZOBACTAM 4.5 GM/100 ML BAG IV ONE (01:01)
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
[2024-10-29] MEDS: AZITHROMYCIN 500 MG/255 ML BAG IV ONE (02:18)
[2024-10-29] MEDS ORDERED: DEXTROSE 50% 50 ML SYRINGE IV PRN (02:52)
[2024-10-29] MEDS ORDERED: GLUCAGON FOR INJ 1 MG VIAL SQ PRN (02:52)
[2024-10-29] MEDS ORDERED: CARBOHYDRATES FOR HYPOGLYCEMIA PO PRN (02:52)
[2024-10-29] MEDS ORDERED: GLUCOSE 10 TAB/TUBE PO PRN (02:52)
[2024-10-29] MEDS ORDERED: GLUCOSE 40% GEL 15 GM TUBE PO PRN (02:52)
[2024-10-29] MEDS: BUDESONIDE 0.5 MG/2 ML VIAL (PULMICORT) NEB STA (02:56)
[2024-10-29] MEDS: ACETAMINOPHEN 325 MG TAB PO PRN (03:51)
[2024-10-29] MEDS: ARMOUR THYROID 30 MG TAB PO SCH (06:04)
[2024-10-29 06:34] LABS: Hematocrit (blood only) 44.9 % (42.0-52.0); Hemoglobin 15.1 g/dl (14.0-18.0); Mean Corpuscular Hemoglobin 29.9 pg (25.0-34.0); Mean Corpuscular Volume 88.9 fL (80.0-100.0); Platelet Count 223 K/uL (130-400); RDW Standard Deviation 43.4 fL (36.4-46.3); Red Blood Count 5.05 M/uL (4.70-6.10); White Blood Count 24.66 K/ul (4.8-10.8)
[2024-10-29] MEDS ORDERED: methylPREDNISolone 10 mg/mL (For Ped Dose < 7mg) IV SCH (07:00)
[2024-10-29] MEDS ORDERED: BUDESONIDE 0.5 MG/2 ML VIAL (PULMICORT) NEB SCH (07:00)
[2024-10-29 07:08] LABS: Alanine Aminotransferase 16.0 U/L (7-52); Albumin Globulin Ratio 1.3 (0.9-2); Albumin Level 4.0 gm/dl (3.4-5.0); Alkaline Phosphatase 60.0 U/L (34-104); Anion Gap 9.0 (3-11); Bilirubin,Total 0.6 mg/dl (0.2-1.0); Blood Urea Nitrogen 21.0 mg/dl (6-23); Calcium 9.3 mg/dl (8.6-10.3); Carbon Dioxide 23.0 mmol/L (21-32); Chloride 104.0 mmol/L (98-107); Cholesterol 154.0 mg/dl (0-200); Creatinine Clr Calc Pharmacy 69.1 ml/min; Globulin 3.1 gm/dl (2.5-4.0); Glucose 207.0 mg/dl (70-99(Fasting)); HDL Cholesterol 66.0 mg/dl; Potassium 4.4 mmol/L (3.5-5.1); Sodium 136.0 mmol/L (136-145); Total Protein 7.1 gm/dl (6.0-8.3); Triglycerides 97.0 mg/dl (0-150)
[2024-10-29] MEDS: ALBUT/IPRATROP 3MG/0.5MG NEB 3 ML VIAL NEB SCH ×2 (07:25→20:05)
[2024-10-29] MEDS: BUDESONIDE 0.5 MG/2 ML VIAL (PULMICORT) NEB SCH (07:25)
[2024-10-29 07:39] LABS: Immature Granulocytes # (auto) 0.20 K/uL (0.01-0.20); Immature Granulocytes % (auto) 0.8 %
[2024-10-29 07:42] LABS: Hemoglobin A1C 7.0 % (4.5-5.6)
[2024-10-29] MEDS ORDERED: NON-FORMULARY MEDICATION (Fluticasone-Umeclidin-Vilanter [Trelegy Ellipta] 200-62.5-25 mcg INH SCH (09:00)
[2024-10-29] MEDS: guaiFENesin 600 MG TABCR PO SCH (09:02)
[2024-10-29] MEDS: FLUTICASONE FUROATE 200MCG 14 PUFFS/INHALER INH SCH (09:02)
[2024-10-29] MEDS: FLUTICASONE PROPIONATE NA SPR 16 GM BTL NAE SCH (09:02)
[2024-10-29] MEDS: UMECLIDINIUM/VILANTEROL 62.5/25MCG 7 PUFFS/INHALER INH SCH (09:02)
[2024-10-29] MEDS: CLOPIDOGREL BISULFATE 75 MG TAB PO SCH (09:02)
[2024-10-29] MEDS: ROSUVASTATIN CALCIUM 5 MG TAB PO SCH (09:02)
[2024-10-29] MEDS: ASCORBIC ACID 500 MG TAB PO SCH (09:03)
[2024-10-29] MEDS: ASPIRIN 81 MG ECTAB PO SCH (09:03)
[2024-10-29] MEDS: METOPROLOL SUCC 25MG EXT REL TAB PO SCH (09:03)
[2024-10-29] MEDS: PIPERACILLIN/TAZOBACTAM 4.5 GM/100 ML BAG IV SCH (09:04)
[2024-10-29 09:15] LABS: Magnesium 1.7 mg/dl (1.7-2.4)
[2024-10-29] MEDS: INSULIN ASPART PER UNIT CHARGE SC SCH (09:20)
[2024-10-29 09:31] LABS: Thyroid Stimulating Hormone 0.32 uIu/ml (0.300-4.500)
[2024-10-29 11:58] LABS: Chlamydia pneumoniae PCR Not Detected (NotDetected); Coronavirus 229E PCR Not Detected (NotDetected); Coronavirus CoV-2 (COVID19)PCR Not Detected (NotDetected); Coronavirus HKU1 PCR Not Detected (NotDetected); Coronavirus NL63 PCR Not Detected (NotDetected); Coronavirus OC43PCR Not Detected (NotDetected); Human Metapneumovirus PCR Not Detected (NotDetected); Parainfluenza Virus 1 PCR Not Detected (NotDetected); Parainfluenza Virus 2 PCR Not Detected (NotDetected); Parainfluenza Virus 3 PCR Not Detected (NotDetected); Parainfluenza Virus 4 PCR Not Detected (NotDetected); Respiratory Syncytial VirusPCR Not Detected (NotDetected); Rhinovirus/Enterovirus PCR Not Detected (NotDetected)
[2024-10-29] MEDS: AZITHROMYCIN 500 MG/255 ML BAG IV SCH (12:48)
--- NOTE | 2024-10-29 15:10 | Hospitalist Progress Note ---
Date of Service October 29, 2024 Assessment & Plan (1) Acute respiratory failure with hypoxia: (2) Pneumonia: (3) Asthma-COPD overlap syndrome: (4) Eosinophilic asthma: Plan 64yo male with a COPD/severe persistent asthma, SNHL bilaterally, hypothyroidism, vitamin D deficiency, CAD, CKD stage III, hypertension, hypothyroidism, and history of stented coronary arteries. Presented with 2 weeks of worsening dyspnea. CTA chest this admission with b/l lower lobe infiltrates. #b/l lower lobe pneumonia - -cont zosyn -cont azithromycin -stable/improved -uncertain if he truly needs broad spectrum coverage w/ zosyn; rocephin may suffice -no recent hospitalization -community acquired or atypical infection more likely than gram negative pathogen -supportive care #COPD/asthma overlap - -with exacerbation -cont steroids but lower steroids to solumedrol 20mg BID -cont BID duonebs -add saline nebs -pulmonary toilet -cont Trilegy (in its components as we don't stock brandname) #new dx of T2DM - -a1c 7% -discussed dx in detail with him & his -while hospitalize & on steroids add novolog -consider metformin at d/c if he is willing -appreciate DM education consult #CAD/HTN/Hyperlipidemia - -no ischemic sx's at this time -continue amlodipine, aspirin, clopidogrel, Zetia, lisinopril, metoprolol succinate and rosuvastatin #Hypothyroidism - -Has had reaction to levothyroxine -TSH 0.3 -Continue with current thyroid supplement #GERD - -cont PPI daily DVT proph - add lovenox daily Admission and Anticipated Discharge Date Admission Date: October 29, 2024 Subjective feeling better today cough is improved mainly dry no sputum mild wheezing only excellent appetite tele- NSR no significant dyspnea at rest today Review of Systems Review of Systems: gen - no fevers or chills cv - no chest pain pulm - no hemoptysis GI - no N/V Physical Exam Physical Exam: gen - NAD, looks well, occasional cough neck - no JVD mouth - MMM heart - RRR, s1 s2, no murmur lungs - scant end-exp wheeze scattered, mild rales bases, no increased work of breathing abd - soft NT ND BS+ ext - no edema, pulses 2+ b/l Results & Data Results & Data Vital Signs (Past 12 Hours) Vital Signs Temp Pulse Pulse Resp BP Pulse Ox O2 Del Method 10/29/24 14:28 85 10/29/24 10:55 36.5 C 76 18 152/99 H 96 Nasal Cannula 10/29/24 10:30 88 10/29/24 07:30 Nasal Cannula 10/29/24 07:26 90 14 92 Nasal Cannula 10/29/24 07:22 36.7 C 91 H 18 141/92 H 92 Nasal Cannula O2 Flow Rate 10/29/24 14:28 10/29/24 10:55 2 10/29/24 10:30 10/29/24 07:30 2 10/29/24 07:26 2 10/29/24 07:22 2 Laboratory Results Laboratory Results - last 48 hr 10/28/24 10/28/24 10/29/24 22:30 22:38 06:07 WBC 17.09 H 24.66 H RBC 5.13 5.05 Hgb 15.9 15.1 Hct 46.2 44.9 MCV 90.1 88.9 MCH 31.0 29.9 MCHC 34.4 33.6 RDW Std Deviation 43.6 43.4 RDW Coeff of Erin 13.1 13.3 Plt Count 233 223 MPV 10.6 10.5 Immature Gran % (Auto) 0.4 0.8 Neut % (Auto) 91.0 92.0 Lymph % (Auto) 5.3 3.8 [place] % (Auto) 3.2 3.2 Eos % (Auto) 0.0 0.0 Baso % (Auto) 0.1 0.2 Neut # (Auto) 15.56 H 22.68 H Lymph # (Auto) 0.90 L 0.94 L [place] # (Auto) 0.54 0.80 H Eos # (Auto) 0.00 0.00 Baso # (Auto) 0.02 0.04 Immature Gran # (Auto) 0.07 0.20 RBC Morphology Unremarkable VBG pH 7.39 VBG pCO2 42 VBG pO2 37 VBG HCO3 25 VBG O2 Saturation 61.4 VBG Base Excess 0.3 Sodium 136 136 Potassium 4.7 4.4 Chloride 103 104 Carbon Dioxide 24 23 Anion Gap 9 9 BUN 21 21 Creatinine 1.12 1.12 Est Cr Clr Drug Dosing 69.2 69.1 eGFR 72.45 72.45 BUN/Creatinine Ratio 18.8 18.8 Glucose 197 H 207 H POC Glucose Estimat Average Glucose 154 Hemoglobin A1c 7.0 H Calcium 9.6 9.3 Magnesium 1.7 Total Bilirubin 0.5 0.6 AST 13 11 L ALT 19 16 Alkaline Phosphatase 63 60 Troponin I High Sens 14.8 Total Protein 7.8 7.1 Albumin 4.5 4.0 Globulin 3.3 3.1 Albumin/Globulin Ratio 1.4 1.3 Triglycerides 97 Cholesterol 154 LDL Cholesterol, Calc 69 VLDL Cholesterol, Calc 19 HDL Cholesterol 66 Cholesterol/HDL Ratio 2.3 TSH 0.320 Urine Color Yellow Urine Appearance Clear Urine pH 6.0 Ur Specific Munith 1.007 Urine Protein 2+ H Urine Glucose (UA) Negative Urine Ketones Negative Urine Blood Negative Urine Nitrite Negative Urine Bilirubin Negative Urine Urobilinogen Negative Ur Leukocyte Esterase Negative Urine WBC (Auto) 0-5 Urine RBC (Auto) 0-2 U Hyaline Cast (Auto) 0-2 U Epithel Cells (Auto) 0-2 Urine Bacteria (Auto) None Seen Urine Comment Adenovirus (PCR) B. pertussis DNA (PCR) B.parapertussis DNA PCR C. pneumoniae DNA (PCR) Coronavirus OC43 (PCR) Coronavirus HKU1 (PCR) Coronavirus 229E (PCR) SARS-CoV-2 (PCR) Coronavirus NL63 (PCR) Human Metapneumovir PCR Influenza Type A (PCR) Influenza Type B (PCR) M. pneumoniae (PCR) Parainfluenza 1 (PCR) Parainfluenza 2 (PCR) Parainfluenza 3 (PCR) Parainfluenza 4 (PCR) RSV (PCR) Entero/Rhino (PCR) 10/29/24 10/29/24 10/29/24 11:33 16:06 19:49 WBC RBC Hgb Hct MCV MCH MCHC RDW Std Deviation RDW Coeff of Erin Plt Count MPV Immature Gran % (Auto) Neut % (Auto) Lymph % (Auto) [place] % (Auto) Eos % (Auto) Baso % (Auto) Neut # (Auto) Lymph # (Auto) [place] # (Auto) Eos # (Auto) Baso # (Auto) Immature Gran # (Auto) RBC Morphology VBG pH VBG pCO2 VBG pO2 VBG HCO3 VBG O2 Saturation VBG Base Excess Sodium Potassium Chloride Carbon Dioxide Anion Gap BUN Creatinine Est Cr Clr Drug Dosing eGFR BUN/Creatinine Ratio Glucose POC Glucose 245 H 223 H 179 H Estimat Average Glucose Hemoglobin A1c Calcium Magnesium Total Bilirubin AST ALT Alkaline Phosphatase Troponin I High Sens Total Protein Albumin Globulin Albumin/Globulin Ratio Triglycerides Cholesterol LDL Cholesterol, Calc VLDL Cholesterol, Calc HDL Cholesterol Cholesterol/HDL Ratio TSH Urine Color Urine Appearance Urine pH Ur Specific [place] Urine Protein Urine Glucose (UA) Urine Ketones Urine Blood Urine Nitrite Urine Bilirubin Urine Urobilinogen Ur Leukocyte Esterase Urine WBC (Auto) Urine RBC (Auto) U Hyaline Cast (Auto) U Epithel Cells (Auto) Urine Bacteria (Auto) Urine Comment Adenovirus (PCR) B. pertussis DNA (PCR) B.parapertussis DNA PCR C. pneumoniae DNA (PCR) Coronavirus OC43 (PCR) Coronavirus HKU1 (PCR) Coronavirus 229E (PCR) SARS-CoV-2 (PCR) Coronavirus NL63 (PCR) Human Metapneumovir PCR Influenza Type A (PCR) Influenza Type B (PCR) M. pneumoniae (PCR) Parainfluenza 1 (PCR) Parainfluenza 2 (PCR) Parainfluenza 3 (PCR) Parainfluenza 4 (PCR) RSV (PCR) Entero/Rhino (PCR) PG Care Time/CCT Total # of Minutes Spent Total Time Spent with Patient: Total time spent is greater than 50% in coordination of care (as documented) at patient's floor/unit and/or counseling patient: Coding Level of Care Code 20915 SUB INP/OBS CARE 3/50MIN Diagnoses Acute respiratory failure with hypoxia J96.01 Pneumonia J18.9 Asthma-COPD overlap syndrome J44.89 Eosinophilic asthma J82.83
[2024-10-29] MEDS: EZETIMIBE 10 MG TAB PO SCH (19:51)
[2024-10-29] MEDS: SODIUM CHLOR 7% 4 ML NEB NEB SCH (20:05)
--- NOTE | 2024-10-30 05:49 | Electrocardiogram Report ---
Test Reason : Blood Pressure : */* mmHG Vent. Rate : 93 BPM Atrial Rate : 93 BPM P-R Int : 134 ms QRS Dur : 78 ms QT Int : 350 ms P-R-T Axes : 5 36 -10 degrees QTcB Int : 435 ms Normal sinus rhythm Nonspecific ST abnormality Abnormal ECG When compared with ECG of 28-Jul-2019 07:10, T wave inversion now evident in Inferior leads Confirmed by Branden Weiss ([id number]) on 10/30/2024 5:49:26 AM Referred By: REFERRED SELF Confirmed By: Branden Weiss
[2024-10-30 06:22] LABS: Hematocrit (blood only) 44.0 % (42.0-52.0); Hemoglobin 14.6 g/dl (14.0-18.0); Immature Granulocytes # (auto) 0.12 K/uL (0.01-0.20); Immature Granulocytes % (auto) 0.6 %; Mean Corpuscular Hemoglobin 29.7 pg (25.0-34.0); Mean Corpuscular Volume 89.4 fL (80.0-100.0); Platelet Count 239 K/uL (130-400); RDW Standard Deviation 42.9 fL (36.4-46.3); Red Blood Count 4.92 M/uL (4.70-6.10); White Blood Count 20.37 K/ul (4.8-10.8)
[2024-10-30 06:54] LABS: Alanine Aminotransferase 13.0 U/L (7-52); Albumin Globulin Ratio 1.3 (0.9-2); Albumin Level 3.7 gm/dl (3.4-5.0); Alkaline Phosphatase 57.0 U/L (34-104); Anion Gap 9.0 (3-11); Bilirubin,Total 0.6 mg/dl (0.2-1.0); Blood Urea Nitrogen 31.0 mg/dl (6-23); Calcium 9.3 mg/dl (8.6-10.3); Carbon Dioxide 25.0 mmol/L (21-32); Chloride 104.0 mmol/L (98-107); Creatinine Clr Calc Pharmacy 71.0 ml/min; Globulin 2.9 gm/dl (2.5-4.0); Glucose 152.0 mg/dl (70-99(Fasting)); Magnesium 1.9 mg/dl (1.7-2.4); Potassium 4.5 mmol/L (3.5-5.1); Sodium 138.0 mmol/L (136-145); Total Protein 6.6 gm/dl (6.0-8.3)
[2024-10-31 06:13] LABS: Hematocrit (blood only) 45.1 % (42.0-52.0); Hemoglobin 15.4 g/dl (14.0-18.0); Immature Granulocytes # (auto) 0.11 K/uL (0.01-0.20); Immature Granulocytes % (auto) 0.6 %; Mean Corpuscular Hemoglobin 30.3 pg (25.0-34.0); Mean Corpuscular Volume 88.6 fL (80.0-100.0); Platelet Count 233 K/uL (130-400); RDW Standard Deviation 42.3 fL (36.4-46.3); Red Blood Count 5.09 M/uL (4.70-6.10); White Blood Count 17.13 K/ul (4.8-10.8)
[2024-10-31 06:34] LABS: Alanine Aminotransferase 13.0 U/L (7-52); Albumin Globulin Ratio 1.3 (0.9-2); Albumin Level 3.7 gm/dl (3.4-5.0); Alkaline Phosphatase 53.0 U/L (34-104); Anion Gap 8.0 (3-11); Bilirubin,Total 0.5 mg/dl (0.2-1.0); Blood Urea Nitrogen 35.0 mg/dl (6-23); Calcium 9.1 mg/dl (8.6-10.3); Carbon Dioxide 26.0 mmol/L (21-32); Chloride 103.0 mmol/L (98-107); Creatinine Clr Calc Pharmacy 58.2 ml/min; Globulin 2.9 gm/dl (2.5-4.0); Glucose 147.0 mg/dl (70-99(Fasting)); Magnesium 2.0 mg/dl (1.7-2.4); Potassium 4.4 mmol/L (3.5-5.1); Sodium 137.0 mmol/L (136-145); Total Protein 6.6 gm/dl (6.0-8.3)
[2024-10-31 07:45] VITALS: TEMP 97.9
[2024-10-31] MEDS: predniSONE 20 MG TAB PO SCH (08:38)
--- NOTE | 2024-10-31 08:52 | Hospitalist Progress Note ---
Date of Service October 30, 2024 Assessment & Plan (1) Acute respiratory failure with hypoxia: (2) Pneumonia: (3) Asthma-COPD overlap syndrome: (4) Eosinophilic asthma: Plan 64yo male with a COPD/severe persistent asthma, SNHL bilaterally, hypothyroidism, vitamin D deficiency, CAD, CKD stage III, hypertension, hypothyroidism, and history of stented coronary arteries. Presented with 2 weeks of worsening dyspnea. CTA chest this admission with b/l lower lobe infiltrates. #acute hypoxic resp failure - -resolving -O2 at rest weaned off but did drop sats w/ walking today -acute resp failure 2nd to pneumonia & COPD/asthma exacerbation #b/l lower lobe pneumonia - IMPROVED - -cont zosyn today, then stop, and switch to PO levaquin once daily starting 10/31 -cont azithromycin - stop after today's dose -pneumonia likely community acquired or atypical infection rather than gram negative pathogen -supportive care #COPD/asthma overlap - -with exacerbation - IMPROVED -cont solumedrol 20mg BID today, then change to PO prednisone 40mg daily starting tomorrow -cont BID duonebs -cont saline nebs -pulmonary toilet -cont Trilegy (in its components as we don't stock brandname) #new dx of T2DM - -a1c 7% -discussed dx in detail with him & his -while hospitalized & on steroids added novolog -consider metformin at d/c if he is willing -appreciate DM education consult -needs glucometer teaching, etc. #CAD/HTN/Hyperlipidemia - -no ischemic sx's at this time -continue amlodipine, aspirin, clopidogrel, Zetia, lisinopril, metoprolol succinate and rosuvastatin #Hypothyroidism - -Has had reaction to levothyroxine -TSH 0.3 -Continue with current thyroid supplement #GERD - -cont PPI daily DVT proph - low risk, early ambulation (he is walking the hallways) updated at bedside can likely d/c home tomorrow Admission and Anticipated Discharge Date Admission Date: October 29, 2024 Subjective tele overnight wnl feels MUCH better no sputum minimal cough can take deeper breaths dyspnea on exertion significantly improved I did have him take a walk but unfortunately his sats dropped into the mid 80s with walking we discussed the T2DM once again Review of Systems Review of Systems: gen - no fevers or chills cv - no chest pain or tightness pulm - no hemoptysis GI - no N/V Physical Exam Physical Exam: gen - NAD, looks very good today neck - no JVD mouth - MMM heart - RRR, s1 s2, no murmur lungs - minimal end-exp wheeze scattered b/l, minimal rales bases, no increased work of breathing, good airation today abd - soft NT ND BS+ ext - no edema, pulses 2+ b/l Results & Data Results & Data Vital Signs (Past 12 Hours) Vital Signs Temp Pulse Pulse Resp BP Pulse Ox O2 Del Method 10/30/24 14:50 36.7 C 73 18 91 Room Air 10/30/24 11:10 36.5 C 78 18 133/92 90 Room Air Laboratory Results Laboratory Results - last 48 hr 10/29/24 10/29/24 10/29/24 06:07 11:33 16:06 WBC RBC Hgb Hct MCV MCH MCHC RDW Std Deviation RDW Coeff of Erin Plt Count MPV Immature Gran % (Auto) Neut % (Auto) Lymph % (Auto) Person % (Auto) Eos % (Auto) Baso % (Auto) Neut # (Auto) Lymph # (Auto) [place] # (Auto) Eos # (Auto) Baso # (Auto) Immature Gran # (Auto) Sodium Potassium Chloride Carbon Dioxide Anion Gap BUN Creatinine Est Cr Clr Drug Dosing eGFR BUN/Creatinine Ratio Glucose POC Glucose 245 H 223 H Calcium Magnesium 1.7 Total Bilirubin AST ALT Alkaline Phosphatase Total Protein Albumin Globulin Albumin/Globulin Ratio TSH 0.320 Adenovirus (PCR) B. pertussis DNA (PCR) B.parapertussis DNA PCR C. pneumoniae DNA (PCR) Coronavirus OC43 (PCR) Coronavirus HKU1 (PCR) Coronavirus 229E (PCR) SARS-CoV-2 (PCR) Coronavirus NL63 (PCR) Human Metapneumovir PCR Influenza Type A (PCR) Influenza Type B (PCR) M. pneumoniae (PCR) Parainfluenza 1 (PCR) Parainfluenza 2 (PCR) Parainfluenza 3 (PCR) Parainfluenza 4 (PCR) RSV (PCR) Entero/Rhino (PCR) 10/29/24 10/29/24 10/30/24 19:49 Unknown 05:41 WBC 20.37 H RBC 4.92 Hgb 14.6 Hct 44.0 MCV 89.4 MCH 29.7 MCHC 33.2 RDW Std Deviation 42.9 RDW Coeff of Erin 13.2 Plt Count 239 MPV 10.4 Immature Gran % (Auto) 0.6 Neut % (Auto) 84.5 Lymph % (Auto) 8.2 [place] % (Auto) 6.6 Eos % (Auto) 0.0 Baso % (Auto) 0.1 Neut # (Auto) 17.20 H Lymph # (Auto) 1.68 Person # (Auto) 1.34 H Eos # (Auto) 0.00 Baso # (Auto) 0.03 Immature Gran # (Auto) 0.12 Sodium 138 Potassium 4.5 Chloride 104 Carbon Dioxide 25 Anion Gap 9 BUN 31 H Creatinine 1.09 Est Cr Clr Drug Dosing 71.0 eGFR 74.85 BUN/Creatinine Ratio 28.4 H Glucose 152 H POC Glucose 179 H Calcium 9.3 Magnesium 1.9 Total Bilirubin 0.6 AST 10 L ALT 13 Alkaline Phosphatase 57 Total Protein 6.6 Albumin 3.7 Globulin 2.9 Albumin/Globulin Ratio 1.3 TSH Adenovirus (PCR) Not Detected B. pertussis DNA (PCR) Not Detected B.parapertussis DNA PCR Not Detected C. pneumoniae DNA (PCR) Not Detected Coronavirus OC43 (PCR) Not Detected Coronavirus HKU1 (PCR) Not Detected Coronavirus 229E (PCR) Not Detected SARS-CoV-2 (PCR) Not Detected Coronavirus NL63 (PCR) Not Detected Human Metapneumovir PCR Not Detected Influenza Type A (PCR) Not Detected Influenza Type B (PCR) Not Detected M. pneumoniae (PCR) Not Detected Parainfluenza 1 (PCR) Not Detected Parainfluenza 2 (PCR) Not Detected Parainfluenza 3 (PCR) Not Detected Parainfluenza 4 (PCR) Not Detected RSV (PCR) Not Detected Entero/Rhino (PCR) Not Detected 10/30/24 10/30/24 10/30/24 07:26 11:09 16:35 WBC RBC Hgb Hct MCV MCH MCHC RDW Std Deviation RDW Coeff of Erin Plt Count MPV Immature Gran % (Auto) Neut % (Auto) Lymph % (Auto) [place] % (Auto) Eos % (Auto) Baso % (Auto) Neut # (Auto) Lymph # (Auto) [place] # (Auto) Eos # (Auto) Baso # (Auto) Immature Gran # (Auto) Sodium Potassium Chloride Carbon Dioxide Anion Gap BUN Creatinine Est Cr Clr Drug Dosing eGFR BUN/Creatinine Ratio Glucose POC Glucose 165 H 209 H 143 H Calcium Magnesium Total Bilirubin AST ALT Alkaline Phosphatase Total Protein Albumin Globulin Albumin/Globulin Ratio TSH Adenovirus (PCR) B. pertussis DNA (PCR) B.parapertussis DNA PCR C. pneumoniae DNA (PCR) Coronavirus OC43 (PCR) Coronavirus HKU1 (PCR) Coronavirus 229E (PCR) SARS-CoV-2 (PCR) Coronavirus NL63 (PCR) Human Metapneumovir PCR Influenza Type A (PCR) Influenza Type B (PCR) M. pneumoniae (PCR) Parainfluenza 1 (PCR) Parainfluenza 2 (PCR) Parainfluenza 3 (PCR) Parainfluenza 4 (PCR) RSV (PCR) Entero/Rhino (PCR) PG Care Time/CCT Total # of Minutes Spent Total Time Spent with Patient: Total time spent is greater than 50% in coordination of care (as documented) at patient's floor/unit and/or counseling patient: Coding Level of Care Code 62076 SUB INP/OBS CARE 2/35MIN Diagnoses Acute respiratory failure with hypoxia J96.01 Pneumonia J18.9 Asthma-COPD overlap syndrome J44.89 Eosinophilic asthma J82.83
--- NOTE | 2024-10-31 11:06 | Discharge Summary ---
Discharge Summary Date of Service October 31, 2024 Principal Dx & Hospital Course #1 = Principal Diagnosis (1) Acute respiratory failure with hypoxia: (2) Pneumonia: (3) Asthma-COPD overlap syndrome: (4) Eosinophilic asthma: Plan 64yo male with a COPD/severe persistent asthma, SNHL bilaterally, hypothyroidism, vitamin D deficiency, CAD, CKD stage III, hypertension, hypothyroidism, and history of stented coronary arteries. Presented with 2 weeks of worsening dyspnea. CTA chest this admission with b/l lower lobe infiltrates. #acute hypoxic resp failure - -resolving -O2 at rest weaned off but did drop sats w/ walking today -acute resp failure 2nd to pneumonia & COPD/asthma exacerbation #b/l lower lobe pneumonia - IMPROVED - -cont zosyn today, then stop, and switch to PO levaquin once daily starting 10/31 -cont azithromycin - stop after today's dose -pneumonia likely community acquired or atypical infection rather than gram negative pathogen -supportive care #COPD/asthma overlap - -with exacerbation - IMPROVED -cont solumedrol 20mg BID today, then change to PO prednisone 40mg daily starting tomorrow -cont BID duonebs -cont saline nebs -pulmonary toilet -cont Trilegy (in its components as we don't stock brandname) #new dx of T2DM - -a1c 7% -discussed dx in detail with him & his -while hospitalized & on steroids added novolog -consider metformin at d/c if he is willing -appreciate DM education consult -needs glucometer teaching, etc. #CAD/HTN/Hyperlipidemia - -no ischemic sx's at this time -continue amlodipine, aspirin, clopidogrel, Zetia, lisinopril, metoprolol succinate and rosuvastatin #Hypothyroidism - -Has had reaction to levothyroxine -TSH 0.3 -Continue with current thyroid supplement #GERD - -cont PPI daily DVT proph - low risk, early ambulation (he is walking the hallways) updated at bedside can likely d/c home tomorrow Admission HPI Per Admitting Provider The patient is a 64-year-old male with a past medical history including COPD, severe persistent asthma, SNHL bilaterally, hypothyroidism, vitamin D deficiency, CAD, CKD stage III, hypertension, hypothyroidism, and history of stented coronary arteries. The patient presents to the emergency department with complaint of shortness of breath for the past 2 weeks, without improvement with current course of steroids begun this week. He has had intermittent issues with breathing in the past, and have responded to tapering doses of prednisone. He feels as though his symptoms are somewhat different this time, as he has some discomfort toward the bases of his lungs. He also notes that the prednisone has made him eat a lot, and his abdomen is significantly more distended and larger. He has not had any fevers or chills, but has felt more fatigued. He does follow with Dr. Kim, and has been taking a injection every 4 weeks, in addition to his usual nebulizer and inhalers. Discharge Exam gen - NAD, looks very good today neck - no JVD mouth - MMM heart - RRR, s1 s2, no murmur lungs - minimal end-exp wheeze scattered b/l, minimal rales bases, no increased work of breathing, good airation today abd - soft NT ND BS+ ext - no edema, pulses 2+ b/l Discharge Plan Discharge Items Patient Disposition: Home - Self-Care Reason For Visit: BILATERAL PNEUMONIA, ASTHMA/COPD Discharge Diagnosis: 1. bilateral pneumonia - improved 2. asthma/COPD exacerbation - improved 3. new type 2 diabetes - hemoglobin a1c 7% 4. need for home oxygen - 2 liters with activity/ambulation Activity: As commented below Activity Comment: gradually increase activities over the next week as tolerated Non-emergency contact: Primary Care Provider and Specialist Call non-emergency contact if: you have any medication questions, your symptoms worsen and you have a fever Follow-up/Referrals: Juliane Davies DO [Primary Care Provider] - (within 1-2 weeks) Cece Kim MD [Physician] - (1-2 weeks) Diet: Carb Consistent or DM2 and Heart Healthy Addtl Attending Provider Instructions: Mr Lobato, You were hospitalized for asthma/COPD exacerbation as well as bilateral pneumonia. You improved nicely with IV steroids, nebulizer treatments, and antibiotics. Oxygen at rest was weaned off. However, with activity/ambulation, you do need 2 liters of oxygen based on a formal walking test on 10/31/24. In addition we determined that you have mild type 2 diabetes. Your hemoglobin a1c was 7% (see handouts). The peer educator saw you to provide information and to show you how to use a glucometer. Recommendations - 1. antibiotic - levofloxacin 750mg once daily x 4 days beginning 11/01/24. -most common side effect - diarrhea -rare side effect - tendonitis of your achilles tendon (back of your heel) and even tearing/rupture of your achilles 2. prednisone taper - take with food; start 11/01/24. 3. continue all inhalers prescribed by your lung/allergy doctor. Over the next few days as your asthma is settling down you can use your albuterol neb treatments as needed for cough/wheezing/etc. 4. oxygen 2 liters via nasal cannula with activity/ambulation only. 5. check your blood sugars every morning; please write your sugar levels down in a notebook. I would also check the blood sugar at one other time during the day. On some days do the extra check at bedtime. On other days check it before your evening meal. And so forth. -ideally your fasting blood sugar when you wake up in the morning is less than 126 -ideally your blood sugars before lunch, dinner, and at bedtime are less than 150 -know that while you are on prednisone your blood sugars will be higher than usual; this is typical when diabetics are taking prednisone 6. if your blood sugars are consistently greater than 150 over time I would start the metformin extended release medicine. This is for diabetes. Take with a meal. -common side effects - gastrointestinal - loose stool, excess gas, etc. -some people lose a modest amount of weight on metformin xr (5-7 pounds). 7. do not allow anyone to smoke in your home due to the home oxygen as this can lead to a house fire. 8. be sure to bring your portable oxygen with you when you leave your home. 9. you can check your oxygen levels on your finger with your pulse oximeter at home as desired. If your oxygen levels are consistently 90% or greater these are acceptable readings. If you are consistently less than 90% please seek medical attention. Follow-up - see separate section Return to [facility] if - -you have fevers over 100 degrees -you develop severe diarrhea (3 or more liquid stools in 24 hours) -your pulse oximeter readings are consistently less than 90% -you have worsening shortness of breath or chest pain -any other concerns It was our pleasure to care for you! -Christ Elias, [facility] medicine Pending Studies at Discharge: No Stand-Alone Forms: My [facility], Smoking Cessation Medications and DC Order Prescriptions: New levofloxacin 750 mg Tablet 750 mg PO DAILY Qty: 4 0RF Rx Instructions: take first dose on 11/01/24. metformin 500 mg tablet extended release 24 hr 500 mg PO DAILY Qty: 30 1RF Rx Instructions: take with a meal. (DME) blood-glucose meter [True Metrix Glucose Meter] Misc See Rx Instructions .Route Qty: 1 0RF Rx Instructions: As directed - check BSGs 1x/day. (DME) True Metrix Glucose Test Strip Strip See Rx Instructions .Route Qty: 100 1RF Rx Instructions: As directed - check BSGs 1x/day. (DME) lancets [TRUEplus Lancets] 30 gauge misc See Rx Instructions .Route Qty: 100 1RF Rx Instructions: As directed - check BSGs 1x/day. (DME) Oxygen Home Liters Per Minute See Rx Instructions .ROUTE .MEDSUPPLY Qty: 1 0RF Rx Instructions: As directed - 2 liters with activity/ambulation. Continued (DME) nebulizer accessories Kit See Rx Instructions .MEDSUPPLY Qty: 1 0RF Rx Instructions: As directed (DME) nebulizer and compressor Device See Rx Instructions .MEDSUPPLY Qty: 1 0RF Rx Instructions: As directed amlodipine 2.5 mg tablet 2.5 mg PO BID Qty: 180 3RF Rx Instructions: One tablet BID or as directed metoprolol succinate 25 mg tablet extended release 24 hr 25 mg PO DAILY Qty: 90 3RF albuterol sulfate 90 mcg/actuation HFA aerosol inhaler 2 puff inhalation Q4H PRN (Reason: shortness of breath) Qty: 1 11RF albuterol sulfate 2.5 mg /3 mL (0.083 %) solution for nebulization 2.5 mg inhalation Q4H PRN (Reason: shortness of breath or wheezing) Qty: 90 3RF ipratropium bromide 0.02 % solution 2.5 ml inhalation QID PRN (Reason: shortness of breath or wheezing) Qty: 75 6RF lisinopril 5 mg tablet 10 mg PO DAILY Qty: 180 3RF pantoprazole 40 mg tablet,delayed release (DR/EC) 20 mg PO DAILY prednisone 5 mg tablet See Rx Instructions PO DAILY PRN (Reason: asthma exacerbations) Qty: 60 3RF Rx Instructions: 2 orally daily PRN; Nucala 100 mg/mL syringe 100 mg subcut .every 4 weeks Qty: 1 11RF Rx Instructions: Inject 100 mg/mL subcutaneously every 4 weeks APPROVED GOOD 10/21/24 - 10/21/25 fluticasone propionate [Flonase Allergy Relief] 50 mcg/actuation spray,suspension 2 spray intranasal DAILY Qty: 16 5RF Rx Instructions: administer into each nostril rosuvastatin 5 mg tablet 5 mg PO .QOD ezetimibe 10 mg tablet 10 mg PO HS aspirin [Adult Low Dose Aspirin] 81 mg tablet,delayed release (DR/EC) 81 mg PO DAILY clopidogrel [Plavix] 75 mg Tablet 75 mg PO QAM acetaminophen 500 mg Tablet 1,000 mg PO Q6H PRN (Reason: Pain) ascorbic acid (vitamin C) [Vitamin C] 500 mg Tablet 500 mg PO QAM Trelegy Ellipta 200-62.5-25 mcg blister with device 1 ea INHALATION DAILY thyroid (pork) [FUNCTIONAL ARCHITECT Thyroid] 120 mg tablet 180 mg PO DAILY Rx Instructions: 1.5 tabs orally daily; Changed prednisone 10 mg tablet 10 mg PO .daily as directed Qty: 11 0RF Rx Instructions: start 11/01/24, take with food. 3 tabs PO QD x 2 days; 2 tabs PO QD x 2 days; 1 tab PO QD X 1 day. Discharge Orders: Discharge Order (Routine); Ordered 10/31/24 Ordered By: Christ Stallworth/Other Patient Handouts: Metformin Extended Release Oral Tablet, Managing Diabetes: The A1C Test, Diabetes: Meal Planning, Type 2 Diabetes Admission Data Admit Date/Time: 10/29/24 01:47 Attending Provider: Christ Elias Admit Provider: Kel Strickland Primary Care Provider: Juliane Davies Other Providers: Kel Strickland Hospital Stay Data Consultations 10/29/24 00:33 ED Decision to Admit Stat Diagnostic Imagining Performed 10/28/24 23:03 CT angio chest PE protocol Stat Pending Results Patient Have Any Pending Studies at Discharge: No Discharge Instructions Given to Patient (Per Discharging Provider) Mr Lobato, You were hospitalized for asthma/COPD exacerbation as well as bilateral pneumonia. You improved nicely with IV steroids, nebulizer treatments, and antibiotics. Oxygen at rest was weaned off. However, with activity/ambulation, you do need 2 liters of oxygen based on a formal walking test on 10/31/24. In addition we determined that you have mild type 2 diabetes. Your hemoglobin a1c was 7% (see handouts). The peer educator saw you to provide information and to show you how to use a glucometer. Recommendations - 1. antibiotic - levofloxacin 750mg once daily x 4 days beginning 11/01/24. -most common side effect - diarrhea -rare side effect - tendonitis of your achilles tendon (back of your heel) and even tearing/rupture of your achilles 2. prednisone taper - take with food; start 11/01/24. 3. continue all inhalers prescribed by your lung/allergy doctor. Over the next few days as your asthma is settling down you can use your albuterol neb treatments as needed for cough/wheezing/etc. 4. oxygen 2 liters via nasal cannula with activity/ambulation only. 5. check your blood sugars every morning; please write your sugar levels down in a notebook. I would also check the blood sugar at one other time during the day. On some days do the extra check at bedtime. On other days check it before your evening meal. And so forth. -ideally your fasting blood sugar when you wake up in the morning is less than 126 -ideally your blood sugars before lunch, dinner, and at bedtime are less than 150 -know that while you are on prednisone your blood sugars will be higher than usual; this is typical when diabetics are taking prednisone 6. if your blood sugars are consistently greater than 150 over time I would start the metformin extended release medicine. This is for diabetes. Take with a meal. -common side effects - gastrointestinal - loose stool, excess gas, etc. -some people lose a modest amount of weight on metformin xr (5-7 pounds). 7. do not allow anyone to smoke in your home due to the home oxygen as this can lead to a house fire. 8. be sure to bring your portable oxygen with you when you leave your home. 9. you can check your oxygen levels on your finger with your pulse oximeter at home as desired. If your oxygen levels are consistently 90% or greater these are acceptable readings. If you are consistently less than 90% please seek medical attention. Follow-up - see separate section Return to [facility] if - -you have fevers over 100 degrees -you develop severe diarrhea (3 or more liquid stools in 24 hours) -your pulse oximeter readings are consistently less than 90% -you have worsening shortness of breath or chest pain -any other concerns It was our pleasure to care for you! -Christ Elias, hospital medicine Coding Diagnoses Acute respiratory failure with hypoxia J96.01 Pneumonia J18.9 Asthma-COPD overlap syndrome J44.89 Eosinophilic asthma J82.83
[2024-10-31 11:23] VITALS: BP 150/99; RESP 18; O2SAT 91
[2024-10-31 13:07] VITALS: PULSE 73
== END 2024-10-31 13:06 | disposition home or self-care (01) | DRG 193 ==
LOC: ED 21:09 → SUATTDRO 10-29 01:47 → 2S 10-29 01:47